=== PATIENT | male | born 1955 | race Caucasian/White ===

== ENCOUNTER → 2024-12-14 | Outpatient (CLI) | payer MEDICARE, SELFPAY ==
[2024-12-14 07:58] LABS: Collection Type, Urine Clean Catch
[2024-12-14 08:33] LABS: Basophils # (Auto) 0.1 Thou/mm3 (0.0-0.2); Basophils % (Auto) 1 % (0-2.5); Eosinophils # (Auto) 0.6 Thou/mm3 (0.0-0.5); Eosinophils % (Auto) 7 % (0-10); Hematocrit 29.5 % (41.0-53.0); Hemoglobin 9.6 g/dL (13.5-16.0); Immature Granulocytes % (Auto) 1 % (0-0); Immature Granulocytes Auto 0.04 Thou/mm3 (0.00-0.00); Lymphocytes # (Auto) 2.4 Thou/mm3 (1.0-4.8); Lymphocytes % (Auto) 29 % (10-50); Mean Corpuscular HGB Conc 32.5 g/dl (31.0-37.0); Mean Corpuscular Hemoglobin 31.4 pg (25.0-35.0); Mean Corpuscular Volume 96 fL (80-100); Monocytes # (Auto) 0.8 Thou/mm3 (0.0-0.8); Monocytes % (Auto) 10 % (0-12); Neutrophils # (Auto) 4.5 Thou/mm3 (1.8-7.7); Neutrophils % (Auto) 53 % (37-80); Nucleated Red Blood Cell % 0 /100 WBC (0); Platelet Count 146 Thou/mm3 (140-440); RDW Standard Deviation 51.5 fL (35.1-43.9); Red Blood Count 3.06 Miln/mm3 (4.50-5.90); White Blood Count 8.4 Thou/mm3 (3.8-10.6)
[2024-12-14 08:50] LABS: Anion Gap 8 (7-16); BUN/Creatinine Ratio 18 Ratio (12-20); Blood Urea Nitrogen 57 mg/dL (9-23); Calcium (Corrected) 8.8 mg/dL (8.5-10.1); Carbon Dioxide 18.7 mMol/L (20.0-31.0); Chloride 120 mMol/L (98-107); Creatinine (Component) 3.1 mg/dL (0.6-1.3); Glucose 95 mg/dL (74-106); Osmolality,Calculated 308 (275-295); Phosphorous 4.4 mg/dL (2.4-5.1); Potassium 5.1 mMol/L (3.4-5.1); Sodium 147 mMol/L (136-145); eGFR 21 See Note
[2024-12-14 08:54] LABS: Parathyroid Hormone Intact 222.8 pg/ml (18.5-88.0)
[2024-12-14 08:54] LABS: Bacteria,Urine Rare; Bilirubin,Urine Negative (Negative); Blood,Urine Trace (Negative); Clarity,Urine Clear (Clear/Hazy); Color,Urine Lt-Yellow (Lt Yel-Yel); Culture Indicated,Urine Not Indicated; Glucose, Urine 2+ (Negative); Hyaline Casts,Urine < 1 /hpf (0-1); Ketones,Urine Negative (Negative); Leukocyte Esterase,Urine Negative (Negative); Nitrite,Urine Negative (Negative); PH,Urine 6.5 (5.0-7.0); Protein,Urine 3+ (Neg - Trace); RBC,Urine 2 /hpf (0-3); Specific Gravity,Urine 1.016 (1.001-1.035); Squamous Epithelial Cell,Urine < 1 /hpf (0-5); Urobilinogen,Urine Negative mg/dL (0.0-1.0); WBC,Urine 8 /hpf (0-5)
[2024-12-14 09:03] LABS: Vitamin D 25 Hydroxy Total 22.4 ng/mL (7.3-40.2)
[2024-12-14 09:06] LABS: Ferritin 186 ng/mL (10.5-307.3); Iron 82 mcg/dL (65-175); Total Iron Binding Capacity 198 mcg/dL (250-425)
== END | disposition home or self-care (01) ==
PROVIDERS: PCP Family Medicine; Referring Provider Internal Medicine Nephrology; Visit Provider Internal Medicine Nephrology
DX: E55.9 Vitamin D deficiency, unspecified (principal); I12.9 Hypertensive chronic kidney disease with stage 1 through stage 4 chronic kidney disease, or unspecified chronic kidney disease; N18.4 Chronic kidney disease, stage 4 (severe); D63.1 Anemia in chronic kidney disease
CPT/HCPCS: 36415; 80069; 81001; 82306; 82728; 83540; 83550; 83970; 85025

== ENCOUNTER → 2025-01-19 | Outpatient (CLI) | payer MEDICARE, SELFPAY ==
[2025-01-19 09:49] LABS: Basophils # (Auto) 0.1 Thou/mm3 (0.0-0.2); Basophils % (Auto) 1 % (0-2.5); Eosinophils # (Auto) 0.4 Thou/mm3 (0.0-0.5); Eosinophils % (Auto) 7 % (0-10); Hematocrit 30.7 % (41.0-53.0); Immature Granulocytes % (Auto) 0 % (0-0); Immature Granulocytes Auto 0.01 Thou/mm3 (0.00-0.00); Lymphocytes # (Auto) 1.6 Thou/mm3 (1.0-4.8); Lymphocytes % (Auto) 29 % (10-50); Mean Corpuscular HGB Conc 32.6 g/dl (31.0-37.0); Mean Corpuscular Hemoglobin 31.9 pg (25.0-35.0); Mean Corpuscular Volume 98 fL (80-100); Monocytes # (Auto) 0.6 Thou/mm3 (0.0-0.8); Monocytes % (Auto) 11 % (0-12); Neutrophils % (Auto) 52 % (37-80); Nucleated Red Blood Cell % 0 /100 WBC (0); Platelet Count 129 Thou/mm3 (140-440); RDW Standard Deviation 53.1 fL (35.1-43.9); Red Blood Count 3.13 Miln/mm3 (4.50-5.90); White Blood Count 5.7 Thou/mm3 (3.8-10.6)
[2025-01-19 10:09] LABS: Collection Type, Urine Clean Catch; Squamous Epithelial Cell,Urine 0 /hpf (0-5)
[2025-01-19 10:25] LABS: Iron 80 mcg/dL (65-175); Percent Iron Saturation 36 % (20-55); Total Iron Binding Capacity 218 mcg/dL (250-425); Unsaturated Iron Binding 138 (225-295)
[2025-01-19 10:36] LABS: Albumin, Serum 2.9 gm/dL (3.4-4.8); Anion Gap 7 (7-16); BUN/Creatinine Ratio 22 Ratio (12-20); Blood Urea Nitrogen 79 mg/dL (9-23); Calcium 7.9 mg/dL (8.3-10.6); Calcium (Corrected) 8.8 mg/dL (8.5-10.1); Carbon Dioxide 18.2 mMol/L (20.0-31.0); Chloride 117 mMol/L (98-107); Creatinine (Component) 3.6 mg/dL (0.6-1.3); Glucose 92 mg/dL (74-106); Osmolality,Calculated 306 (275-295); Sodium 142 mMol/L (136-145); eGFR 17 See Note
[2025-01-19 10:37] LABS: Potassium 6.1 mMol/L (3.4-5.1)
[2025-01-19 10:54] LABS: Bilirubin,Urine Negative (Negative); Blood,Urine 1+ (Negative); Clarity,Urine Clear (Clear/Hazy); Color,Urine Lt-Yellow (Lt Yel-Yel); Glucose, Urine 2+ (Negative); Ketones,Urine Negative (Negative); Leukocyte Esterase,Urine Negative (Negative); Nitrite,Urine Negative (Negative); PH,Urine 6.5 (5.0-7.0); Protein,Urine 3+ (Neg - Trace); RBC,Urine 1 /hpf (0-3); Specific Gravity,Urine 1.018 (1.001-1.035); Urobilinogen,Urine Negative mg/dL (0.0-1.0); WBC,Urine 8 /hpf (0-5)
[2025-01-19 11:24] LABS: Creatinine,Random Urine 91 mg/dL (30-125); Protein Total, Random Urine 710 mg/dL (1-14)
[2025-01-24 22:03] LABS: Albumin 2.6 g/dL (3.8-4.8); Alpha-1-Globulin 0.3 g/dL (0.2-0.3); Alpha-2-Globulin 0.7 g/dL (0.5-0.9); Beta-1-Globulin 0.3 g/dL (0.4-0.6); Beta-2-globulin 0.5 g/dL (0.2-0.5); Gamma Globulin 0.9 g/dL (0.8-1.7)
[2025-01-25 06:51] LABS: Protein, total, serum 5.3 g/dL (6.1-8.1)
== END | disposition home or self-care (01) ==
LOC: COPL 09:07
PROVIDERS: PCP Family Medicine; Referring Provider Internal Medicine Nephrology; Visit Provider Internal Medicine Nephrology
DX: N20.0 Calculus of kidney (principal); I12.9 Hypertensive chronic kidney disease with stage 1 through stage 4 chronic kidney disease, or unspecified chronic kidney disease; N18.9 Chronic kidney disease, unspecified; D63.1 Anemia in chronic kidney disease; R80.9 Proteinuria, unspecified
CPT/HCPCS: 36415; 80069; 81001; 82570; 83540; 83550; 84155; 84156; 84165; 85025; 86334

== ENCOUNTER → 2025-02-09 | Outpatient (CLI) | payer MEDICARE, SELFPAY ==
--- NOTE | 2025-02-09 10:23 | XR_ITS ---
Examination: CT abdomen and pelvis without contrast. Coronal 3-D reconstructions. Sagittal 2-D reconstructions. Date and time of exam:February 09, 2025 at 1114 hours Comparison December 27, 2020 INDICATIONS: Left lower abdominal pain diarrhea beginning 3 days ago, history kidney stones CTDI: vol (mGy): 11.4 DLP: (mGycm): 690 Technique: Axial images of the abdomen have been obtained, 3 mm slice thickness Intravenous contrast material has not been administered. Low dose protocols were performed. One or more of the following dose reduction techniques were used; automated exposure control, adjustment of the mA and/or KV according to patient size, use of iterative reconstruction technique. Findings: No focal liver or splenic lesion Absent gallbladder No pancreatic or adrenal mass Numerous bilateral renal calculi, the largest in the upper pole left kidney 15 mm Moderate renal parenchymal scar formation Mild right hydronephrosis, 2 mm proximal right ureteral calculus image 105 Aorta normal size No bowel obstruction Colonic diverticulosis No bladder mass or bladder calculi Normal seminal vesicles Transverse prostate dimension 4.1 cm Moderate to advanced diffuse lumbar degenerative disc disease Moderate narrowing hip joints IMPRESSION: Numerous bilateral renal calculi, the largest in the upper pole left kidney, 15 mm Mild right hydronephrosis, 2 mm proximal right ureteral calculus No bladder mass or bladder calculi
== END | disposition home or self-care (01) ==
PROVIDERS: PCP Nurse Practitioner Family; Referring Provider Specialist; Visit Provider Specialist
DX: N13.30 Unspecified hydronephrosis (principal); N20.2 Calculus of kidney with calculus of ureter
CPT/HCPCS: 74176

== ENCOUNTER → 2025-05-16 | Outpatient (CLI) | payer MEDICARE, SELFPAY ==
[2025-05-16 09:28] LABS: Collection Type, Urine Clean Catch; Squamous Epithelial Cell,Urine 0 /hpf (0-5)
[2025-05-16 10:12] LABS: Basophils # (Auto) 0.1 Thou/mm3 (0.0-0.2); Basophils % (Auto) 1 % (0-2.5); Eosinophils # (Auto) 0.4 Thou/mm3 (0.0-0.5); Eosinophils % (Auto) 7 % (0-10); Hematocrit 27.8 % (41.0-53.0); Immature Granulocytes Auto 0.02 Thou/mm3 (0.00-0.00); Lymphocytes # (Auto) 1.7 Thou/mm3 (1.0-4.8); Lymphocytes % (Auto) 28 % (10-50); Mean Corpuscular HGB Conc 31.3 g/dl (31.0-37.0); Mean Corpuscular Hemoglobin 31.4 pg (25.0-35.0); Mean Corpuscular Volume 100 fL (80-100); Monocytes # (Auto) 0.7 Thou/mm3 (0.0-0.8); Monocytes % (Auto) 12 % (0-12); Neutrophils # (Auto) 3.1 Thou/mm3 (1.8-7.7); Neutrophils % (Auto) 52 % (37-80); Nucleated Red Blood Cell # 0.00 Thou/mm3 (0.00-0.00); Nucleated Red Blood Cell % 0 /100 WBC (0); Platelet Count 135 Thou/mm3 (140-440); RDW Standard Deviation 55.6 fL (35.1-43.9); Red Blood Count 2.77 Miln/mm3 (4.50-5.90); White Blood Count 6.0 Thou/mm3 (3.8-10.6)
[2025-05-16 10:20] LABS: Hemoglobin 8.7 g/dL (13.5-16.0)
[2025-05-16 10:29] LABS: Bacteria,Urine Rare; Bilirubin,Urine Negative (Negative); Blood,Urine 1+ (Negative); Clarity,Urine Clear (Clear/Hazy); Color,Urine Lt-Yellow (Lt Yel-Yel); Culture Indicated,Urine Not Indicated; Glucose, Urine 2+ (Negative); Ketones,Urine Negative (Negative); Leukocyte Esterase,Urine Negative (Negative); Nitrite,Urine Negative (Negative); PH,Urine 6.5 (5.0-7.0); Protein,Urine 3+ (Neg - Trace); RBC,Urine 2 /hpf (0-3); Specific Gravity,Urine 1.017 (1.001-1.035); Urobilinogen,Urine Negative mg/dL (0.0-1.0); WBC,Urine 9 /hpf (0-5)
[2025-05-16 10:39] LABS: Alanine Aminotransferase 14 U/L (10-49); Albumin, Serum 2.8 gm/dL (3.4-4.8); Alkaline Phosphatase 72 U/L (46-116); Anion Gap 11 (7-16); Aspartate Amino Transferase < 10 U/L (0-34); BUN/Creatinine Ratio 17 Ratio (12-20); Bilirubin,Direct 0.2 mg/dL (0.0-0.3); Bilirubin,Total 0.7 mg/dL (0.3-1.2); Blood Urea Nitrogen 59 mg/dL (9-23); Calcium 7.8 mg/dL (8.3-10.6); Carbon Dioxide 21.4 mMol/L (20.0-31.0); Cardiac Risk Estimate 2.8 RATIO (4.0-6.7); Chloride 116 mMol/L (98-107); Cholesterol 132 mg/dL (132-200); Creatinine (Component) 3.5 mg/dL (0.6-1.3); Free T4 (Free Thyroxine) 0.83 ng/dL (0.89-1.76); Glucose 91 mg/dL (74-106); HDL Cholesterol 47 mg/dL (40-60); LDL Cholesterol,Calculated 71 mg/dL (0-130); Osmolality,Calculated 310 (275-295); Phosphorous 4.5 mg/dL (2.4-5.1); Potassium 5.2 mMol/L (3.4-5.1); Sodium 148 mMol/L (136-145); Thyroid Stimulating Hormone 4.01 uIU/mL (0.55-4.78); Total Protein 4.8 gm/dL (5.7-8.2); Triglycerides 72 mg/dL (30-150); eGFR 18 See Note
[2025-05-16 10:41] LABS: Creatinine MALB Rnd Ur 82 mg/dL (30-125); Microalbumin Creat Ratio 4634 mg/gCrea (<30); Microalbumin, Random Urine > 3800 mg/L (0-300); Protein Total, Random Urine 759 mg/dL (1-14)
== END | disposition home or self-care (01) ==
PROVIDERS: PCP Internal Medicine Nephrology; Referring Provider Internal Medicine Cardiovascular Disease; Visit Provider Internal Medicine Cardiovascular Disease
DX: I12.9 Hypertensive chronic kidney disease with stage 1 through stage 4 chronic kidney disease, or unspecified chronic kidney disease (principal); N18.4 Chronic kidney disease, stage 4 (severe); E78.5 Hyperlipidemia, unspecified; I25.118 Atherosclerotic heart disease of native coronary artery with other forms of angina pectoris; R80.9 Proteinuria, unspecified
CPT/HCPCS: 36415; 80048; 80061; 80069; 80076; 81001; 82043; 82570; 84100; 84156; 84439; 84443; 85025

== ENCOUNTER 2025-08-06 12:05 | Inpatient (IN) | payer MEDICARE, SELFPAY ==
[2025-08-06] VITALS (11 sets, daily range): BP systolic 130–148; BP diastolic 67–87; PULSE 61–91; RESP 15–94; TEMP 36–36.8; O2SAT 92–100; BMI 34.9; BMI 34.7
--- NOTE | 2025-08-06 13:16 | XR_ITS ---
EXAMINATION: PA chest single view TECHNIQUE: Upright PA chest single view Date and time: August 06, 2025, 1322 hours, comparison October 30, 2023 INDICATIONS: Coughing today. FINDINGS: Moderate right base pneumonia Mild prominence cardiac contour Mild prominent central pulmonary arteries Moderate osteopenia IMPRESSION: Significant right base pneumonia
--- NOTE | 2025-08-06 13:16 | EKG_ITS ---
[facility] Test Date: 2025-08-06 Pat Name: GENESIS KAUR Department: Room: - Gender: Male Travel Rn: : 1955 Requested By: Brittney Lundberg Order Number: [id number] Reading MD: Brittney Lundberg Measurements Intervals [place] Rate: 77 P: 59 TN: 137 QRS: 53 QRSD: 92 T: 51 QT: 369 QTc: 420 Interpretive Statements SINUS RHYTHM Compared to ECG 10/30/2023 15:41:42 No significant changes /store/S0/[id number].pdf
--- NOTE | 2025-08-06 13:17 | PD.EDRME ---
Rapid Medical Screening Exam [facility] Arrival date/time: 08/06/25 12:05 This is a 70-year-old male that comes into the emergency room with complaints of chest pain, shortness of breath and fluid retention in lower extremities. Patient went to go see his primary doctor for another Rocephin shot and was told to come to the emergency room. Patient is having trouble breathing. Patient was given an inhaler for trouble breathing and wheezing. Per patient's daughter patient is not urinating that much. Patient does have chronic kidney disease. Patient also has a history of coronary artery disease status post cardiac stents, CHF, hyperlipidemia, hypertension. I have greeted and performed a focused initial assessment of this patient. Initial appropriate labs ordered at this time. A comprehensive ED assessment and evaluation of the patient and analysis of all test and completion of medical decision making process will be conducted by additional ED provider. Chief Complaint: Shortness of Breath/Dyspnea Time Seen by Provider: 08/06/25 12:33 Vital signs: Vital Signs Temperature 97.5 F 08/06/25 12:34 Pulse Rate 86 08/06/25 12:34 Respiratory Rate 22 H 08/06/25 12:34 Blood Pressure 131/75 H 08/06/25 12:34 Pulse Oximetry (%) 95 08/06/25 12:34 Oxygen Delivery Method Room Air 08/06/25 12:34 Exam: Wheezing throughout, alert and oriented, skin warm and dry Clinical Impression: Chest pain
[2025-08-06] MEDS: ALBUTEROL/IPRATROPIUM (Duoneb) RT SOL 3 ML NEBU INH ×3 (13:29→23:02)
--- NOTE | 2025-08-06 13:38 | EDNOTE_ITS ---
ED General RME/HPI General Chief complaint: Shortness of Breath/Dyspnea Stated complaint: I THINK I HAVE PNEUMONIA X1WEEK Time Seen by Provider: 08/06/25 12:33 Arrival date/time: 08/06/25 12:05 CC: Shortness of breath HPI patient states he has shortness of breath when walking onset 4 to 5 days ago also has lower leg swelling for the past week. Patient denies chest pain. No recent history of similar events. Denies fever at home. RME / HPI RME / HPI narrative: 08/06/25 12:05 This is a 70-year-old male that comes into the emergency room with complaints of chest pain, shortness of breath and fluid retention in lower extremities. Patient went to go see his primary doctor for another Rocephin shot and was told to come to the emergency room. Patient is having trouble breathing. Patient was given an inhaler for trouble breathing and wheezing. Per patient's daughter patient is not urinating that much. Patient does have chronic kidney disease. Patient also has a history of coronary artery disease status post cardiac stents , CHF, hyperlipidemia, hypertension. I have greeted and performed a focused initial assessment of this patient. Initial appropriate labs ordered at this time. A comprehensive ED assessment and evaluation of the patient and analysis of all test and completion of medical decision making process will be conducted by additional ED provider. Exam: Wheezing throughout, alert and oriented, skin warm and dry Impression: Chest pain Related Data Home Medications ?Medication ?Instructions ?Recorded ?Confirmed atorvastatin 40 mg tablet 40 mg PO QPM 10/02/19 carvedilol 12.5 mg tablet 12.5 mg PO QDAY 11/23/1903/31 albuterol sulfate 0.63 mg/3 mL 0.63 mg inhalation Q4H PRN Wheezing 01/24/20 07/14/25 solution for nebulization hydrochlorothiazide 25 mg tablet 25 mg PO DAILY PRN ed krissy 03/11/22 07/14/25 clopidogrel 75 mg tablet 75 mg PO DAILY 07/14/2503/31 Allergies Allergy/AdvReac Type Severity Reaction Status Date / Time No Known Allergies Allergy Verified 08/06/25 12:08 Review of Systems Review of Systems Narrative Review of Systems: GEN: No fever, no chills, no weight loss EYES: No discharge, no visual changes, no pain HEENT: No ear pain, no congestion, no sore throat PULM: + shortness of breath, no cough, no congestion CV: No chest pain, no dyspnea on exertion, no palpitations GI: No nausea, no vomiting, no diarrhea, no pain, no constipation : No frequency, no urgency, no dysuria MUSC/SKEL: No joint pain, no back pain SKIN: No rash PSYCH: No hallucinations, no depression HEME/LYMPH: No easy bleeding or bruising tendencies NEURO: No weakness, no headache Past Medical History Past Medical History NEUROLOGIC: Positive Neurological Disorders, Transient Ischemic Attacks (TIA), Peripheral Neuropathy and Migraine; Negative Cerebrovascular Accident, Dementia, Alzheimer's Disease, Parkinson's Disease, Brain Tumor, Meningitis, Seizures, Epilepsy, Multiple Sclerosis, Cerebral Palsy, Amyotrophic Lateral Sclerosis (ALS/Doris Gehrig's), Guillain-Hazen Syndrome, Spina Bifida, Paralysis, Hernandez's Palsy, Subdural Hematoma, Head Trauma, Spinal Cord Injury or Traumatic Brain Injury CARDIAC: Positive Cardiac Disorders, Myocardial Infarction (2016 HOSP), Angina, Coronary Artery Disease, Hypercholesterolemia, Congestive Heart Failure and Hypertension; Negative Cardiac Arrhythmia, Atrial Fibrillation, Heart Murmur, Atherosclerotic Heart Disease, Peripheral Vascular Disease, Aneurysm, Congenital Heart Disease, Valvular Heart Disease, Rheumatic Fever, Cardiomyopathy, Edema, Pericarditis, Cellulitis, Deep Vein Thrombosis, Hypotension or Varicose Veins RESPIRATORY: Positive Asthma (HAS NEBULIZER), Bronchitis and Pneumonia; Negative Chronic Obstructive Pulmonary Disease (COPD), Emphysema, Pulmonary Fibrosis, Tuberculosis, Pulmonary Embolism, Pulmonary Edema or Sleep Apnea GASTROINTESTINAL: Positive Gastrointestinal Disorders, Hemorrhoids and Obesity; Negative Hepatitis, Cirrhosis, Pancreatitis, Celiac Disease, Gall Bladder Disease, Gastrointestinal Bleed, Esophageal Varices, Coelho's Esophagus, Colitis, Ulcerative Colitis, Diverticulitis, Diverticulosis, Ulcer, Colorectal Cancer, Irritable Bowel, Crohn's Disease, Obstructive Bowel, Hiatal Hernia or Gastroesophageal Reflux Disease GENITOURINARY: Positive Genitourinary Disorders, Renal Disease, Kidney Stones (NUMEROUS PROC) and Benign Prostatic Hyperplasia; Negative Polycystic Kidney Disease, Neurogenic Bladder, Inguinal Hernia, Dialysis or Prostate Cancer REPRODUCTIVE: Negative Breast Cancer, Genital Herpes, Gonorrhea, Syphilis or Testicular Cancer MUSCULOSKELETAL: Positive Carpal Tunnel Syndrome; Negative Musculoskeletal Disorders, Muscular Dystrophy, Myasthenia Gravis, Marfan's Syndrome, Bone Cancer, Arthritis, Rheumatoid Arthritis, Osteoporosis, Degenerative Disk Disease, Gout, Scoliosis, Fibromyalgia, Fractures, D egenerative Joint Disease, Osteomyelitis or Poliovirus ENT: Negative Cataracts, Glaucoma, Blind, Retinal Detachment, Macular Degeneration, Ear Infection, Deafness, Head Trauma or Eye Prosthesis ENDOCRINE: Negative Endocrine Disorders, Diabetes Mellitus Type 1, Diabetes Mellitus Type 2, Hypoglycemia, Kita's Syndrome, Reza's Disease, Hyperthyroidism, Hypothyroidism, Parathyroid Disease, Pituitary Disease, Systemic Lupus Erythematosus, Syndrome of Inappropriate Antidiuretic Hormone (SIADH), Adrenal Disease or Graves' Disease HEMATOLOGIC: Negative Blood Disorders, Anemia, Leukemia, Hemophilia, Thalassemia, Sickle Cell Disease or Clotting Problems PSYCHO/SOCIAL: Positive Anxiety; Negative Psychiatric Problems, Schizophrenia, Recreational Drug Use, Bipolar Disorder, Depression, Behavior Problems, Self-Mutilation, Attention Deficit Disorder, Attention Deficit Hyperactivity Disorder, Depression, Post Traumatic Stress Disorder or Eating Disorder OTHER HISTORY: Positive Hospitalization, Chicken Pox, Measles and Mumps; Negative Autoimmune Disease, Down Syndrome, Autism, Developmental Delay, Shingles, Falls, Blood Transfusions, Anesthesia Reactions, Organ Transplant, Chemotherapy, Radiation Therapy, Hyperbaric Therapy, MRSA, VRSA, Vancomycin- Resistant Enterococci, Human Immunodeficiency Virus (HIV), Rubella (Fijian Measles), Pertussis, Clostridium Difficile, Cancer, Breast Cancer, Cervical Cancer, Colorectal Cancer, Lung Cancer, Ovarian Cancer, Prostate Cancer or Testicular Cancer Family History FAMILY HISTORY: Positive Family Respiratory Disorders, Family Cardiac Disorders, Family Cancer and Family Surgery; Negative Family Psychiatric Problems, Family Gastrointestinal Problems or Family Anesthesia Reaction Surgical History SURGICAL: Positive Coronary Stent (X2), Cardiac Catheterization, Angiogram, Tonsillectomy, Adenoidectomy and Bowel Surgery (HEMORRHOIDECTOMY); Negative Cardiac Surgery, Open Heart Surgery, Coronary Artery Bypass Graft, Valve Replacement, Vascular Surgery, Pacemaker, Auto Implanted Cardiovert Defib, Carotid Endarterectomy, Endocrine Surgery, Thyroidectomy, Ear Surgery, Tympanostomy Tube, Eye Surgery, Nose Surgery, Oral Surgery, Cochlear Implant, Corneal Transplant, Throat Surgery, Abdominal Surgery, Tracheostomy, Gastric Bypass Surgery, Gastrostomy, Nephrectomy, Transurethral Resection, Joint Replacement, Amputation, Open Reduction Internal Fixation, Arthroscopy, Neurologic Surgery, Brain Shunt, Vasectomy or Organ Transplant Social History SMOKING STATUS: Never smoker SECOND HAND EXPOSURE: No SUBSTANCE USE: does not use ED Exam Narrative Physical exam: [General: Obese not in any acute distress Head normocephalic HEENT: Eyes pupils PERRLA EOMs are intact mouth pink moist membranes uvula is midline swallow symmetrical phonation is normal. All other subsystems HEENT are within acceptable limits Neck is supple nontender Chest equal chest rise nontender to palpation Respiratory: Inspiratory and expiratory wheezes with base crackles. No tachypnea. CV: Rate rhythm is regular no murmurs rubs or clicks Abdomen is grossly distended secondary to body habitus soft nontender no masses positive bowel sounds all 4 quadrants Back: No CVA tenderness no spinous process tenderness from cervical spine thoracic and lumbar spine Skin: Intact no petechiae rash induration ulceration or crepitus Extremities: Moving all extremity against resistance cap refill less than 2 seconds neurosensory intact. Pitting edema in the both lower extremities. Neuro: Awake alert oriented x3 Glascow coma 15 no focal deficits] Course Course Course Narrative: Patient has a significant right pneumonia. Also has a significantly worsening BUN and creatinine. Patient's case discussed with Dr. Fernandes, resident for Dr. Michel, who agrees to accept the patient for admission. Quality Measures none Orders Category Date Time Status Child Guidance Counselor Q4H START 00 Care 08/06/25 13:49 Active EKG (ED ONLY) *Do not use* NOW Care 08/06/25 13:16 Completed Saline [Insert IV] NOW Care 08/06/25 13:38 Active EKG (ED Only) Stat Exams 08/06/25 13:16 Draft XR chest 1V Stat Exams 08/06/25 13:16 Completed BNP [B-Type Natriuretic Peptide] Stat Lab 08/06/25 13:35 Completed Blood Culture (Lab) Stat Lab 08/06/25 13:42 Received CBC Stat Lab 08/06/25 13:35 Completed COVID-19 Antigen (In-House) Stat Lab 08/06/25 15:45 Completed Comprehensive Metabolic Panel Stat Lab 08/06/25 13:35 Completed Influenza A & B Rapid Panel Stat Lab 08/06/25 15:45 Completed Lactic Acid [Lactate (Lactic Acid)] Stat Lab 08/06/25 13:35 Completed Troponin I Stat Lab 08/06/25 13:35 Completed Urinalysis, C/S if Indicated Stat Lab 08/06/25 14:11 Completed Urine Culture Stat Lab 08/06/25 14:11 Received Albuterol/Ipratr Rt Latosha [Duoneb Rt Latosha] Med 08/06/25 13:16 Discontinued 3 ml INH X1 ONE cefTRIAXone/D5w 1gm IV premix [Rocephin/D5w 1gm IV Med 08/06/25 13:38 Discontinued premix] 1 gm in 50 ml IV X1 Vital Signs Vital signs: Vital Signs Temperature 97.5 F 08/06/25 12:34 Pulse Rate 86 08/06/25 12:34 Respiratory Rate 22 H 08/06/25 12:34 Blood Pressure 131/75 H 08/06/25 12:34 Pulse Oximetry (%) 95 08/06/25 12:34 Oxygen Delivery Method Room Air 08/06/25 12:34 Discharge Plan Plan Patient Disposition: Other Care w/in Hosp (SDC/AVERY) Prescriptions/Referrals Prescriptions/Med Rec: No Action hydrochlorothiazide 25 mg Tablet 25 mg PO DAILY PRN (Reason: edema) atorvastatin 40 mg Tablet 40 mg PO QPM carvedilol 12.5 mg Tablet 12.5 mg PO QDAY albuterol sulfate 0.63 mg/3 mL Solution For Nebulization 0.63 mg INHALATION Q4H PRN (Reason: Wheezing) clopidogrel 75 mg tablet 75 mg PO DAILY Patient Comments: TAKE 1 TABLET BY MOUTH ONCE DAILY Referrals: Yakov Nichols MD [Primary Care Provider, Family Practice] - In 1 week Problem List Clinical Impression: Shortness of breath, Pneumonia, KERWIN (acute kidney injury) Patient/Caregiver Discharge Instructions Print Language: Chinese Stand Alone Forms: Clarissa Award Info., Patient Portal Info Letter PA/BRAIDING MACHINE OPERATOR Supervising Physician PA/BRAIDING MACHINE OPERATOR Supervising Physician: Hair Barragan ENP [facility] Clinical Information Provided by: patient Medical Records reviewed [facility] Meds/Rx considered, not ordered None Labs/Rad/Tests considered, not ordered None Chronic Illness/Social Conditions Explain: Hypertension CKD stage II Dr. Canseco her sonoscope operator, Dr Ovalle is her conservation biology professor. EKG Interpretation EKG #1: EKG Interpretation: EKG performed at 1318 shows a ventricular rate of 77 ID interval 138 QRS of 92 QTc of 401 is normal sinus rhythm. Poor conduction in aVL Labs Labs: interpreted by pa Lab(s) Interpretation(s): CBC shows no leukocytosis and H&H of 9.2 and 28 ninth 0.3 respectively no thrombocytopenia. Note, review of the H&H show that this is a stable anemia. CMP shows sodium 139 chloride of 119 CO2 of 19 gap of 11 BUN of 56 creatinine 4.5 glucose of 108 Lactic of 0.4 no transaminitis or T. bili elevation Troponin is undetectable BNP at 518. Urine shows 3+ protein 3+ glucose 1+ blood no signs of infection. Imaging Imaging interpretation: interpreted by me Imaging Interpretation(s): Right base pneumonia Medication Administration(s) Medication Administration History Discontinued Medications Albuterol/Ipratropium (Albuterol/Ipratropium (Duoneb) Rt Latosha 3 Ml Nebu) 3 ml INH X1 ONE Stop: 08/06/25 13:17 Last Admin: 08/06/25 13:29 Dose: 3 ml Documented By: CHADD Ceftriaxone Sodium/Dextrose (Rocephin/D5w 1gm Iv Premix) 1 gm in 50 mls @ 100 mls/hr IV X1 ONE Stop: 08/06/25 14:07 Last Infusion: 08/06/25 14:41 Dose: Infused Documented By: Admin: 08/06/25 14:07 Dose: 100 mls/hr Documented By: ALLISON
[2025-08-06 13:50] LABS: Lactate (Lactic Acid) 0.4 mMol/L (0.4-2.0)
[2025-08-06 13:57] LABS: Basophils # (Auto) 0.1 Thou/mm3 (0.0-0.2); Basophils % (Auto) 1 % (0-2.5); Eosinophils # (Auto) 0.4 Thou/mm3 (0.0-0.5); Eosinophils % (Auto) 5 % (0-10); Hematocrit 29.3 % (41.0-53.0); Hemoglobin 9.2 g/dL (13.5-16.0); Immature Granulocytes Auto 0.04 Thou/mm3 (0.00-0.00); Lymphocytes # (Auto) 1.4 Thou/mm3 (1.0-4.8); Lymphocytes % (Auto) 17 % (10-50); Mean Corpuscular HGB Conc 31.4 g/dl (31.0-37.0); Mean Corpuscular Hemoglobin 30.8 pg (25.0-35.0); Mean Corpuscular Volume 98 fL (80-100); Monocytes # (Auto) 0.9 Thou/mm3 (0.0-0.8); Monocytes % (Auto) 10 % (0-12); Neutrophils # (Auto) 5.5 Thou/mm3 (1.8-7.7); Neutrophils % (Auto) 66 % (37-80); Nucleated Red Blood Cell # 0.00 Thou/mm3 (0.00-0.00); Nucleated Red Blood Cell % 0 /100 WBC (0); Platelet Count 145 Thou/mm3 (140-440); RDW Standard Deviation 52.2 fL (35.1-43.9); Red Blood Count 2.99 Miln/mm3 (4.50-5.90); White Blood Count 8.3 Thou/mm3 (3.8-10.6)
[2025-08-06] MEDS: cefTRIAXone/D5w 1gm IV premix 1 GM/50 ML BAG IV ×2 (14:07→17:21)
[2025-08-06 14:11] LABS: Alanine Aminotransferase 14 U/L (10-49); Albumin, Serum 3.5 gm/dL (3.4-4.8); Albumin/Globulin Ratio 1.4 (1.2-2.2); Alkaline Phosphatase 80 U/L (46-116); Anion Gap 11 (7-16); Aspartate Amino Transferase 18 U/L (0-34); BUN/Creatinine Ratio 12 Ratio (12-20); Bilirubin,Total 0.4 mg/dL (0.3-1.2); Blood Urea Nitrogen 56 mg/dL (9-23); Calcium 7.9 mg/dL (8.3-10.6); Calcium (Corrected) 8.3 mg/dL (8.5-10.1); Carbon Dioxide 19.0 mMol/L (20.0-31.0); Chloride 119 mMol/L (98-107); Creatinine (Component) 4.5 mg/dL (0.6-1.3); Estimated Creatinine Clearance 17.4 mL/min (>60); Globulin 2.5 gm/dL (2.3-3.5); Glucose 108 mg/dL (74-106); Osmolality,Calculated 312 (275-295); Potassium 4.5 mMol/L (3.4-5.1); Sodium 149 mMol/L (136-145); Total Protein 6.0 gm/dL (5.7-8.2); Troponin I < 0.020 ng/mL (0.0-0.045); eGFR 13 See Note
[2025-08-06 14:13] LABS: B-Type Natriuretic Peptide 518 pg/mL (0-100)
[2025-08-06 14:26] LABS: Collection Type, Urine Voided
[2025-08-06 14:44] LABS: Bilirubin,Urine Negative (Negative); Blood,Urine 1+ (Negative); Clarity,Urine Clear (Clear/Hazy); Color,Urine Lt-Yellow (Lt Yel-Yel); Glucose, Urine 3+ (Negative); Ketones,Urine Trace (Negative); Leukocyte Esterase,Urine Negative (Negative); Nitrite,Urine Negative (Negative); PH,Urine 6.5 (5.0-7.0); Protein,Urine 3+ (Neg - Trace); RBC,Urine 3 /hpf (0-3); Specific Gravity,Urine 1.018 (1.001-1.035); Squamous Epithelial Cell,Urine < 1 /hpf (0-5); Urobilinogen,Urine Negative mg/dL (0.0-1.0); WBC,Urine 11 /hpf (0-5)
[2025-08-06 14:59] LABS: Culture Indicated,Urine Yes
[2025-08-06 16:01] LABS: COVID-19 Antigen (In-House) Negative (Negative)
[2025-08-06 16:04] LABS: Influenza A Ag Negative; Influenza B Ag Negative
--- NOTE | 2025-08-06 16:57 | ECHO_ITS ---
Patient Info Name: Nghia Mcconnell Age: 70 years : 1955 Gender: Male Ht: 173 cm Wt: 108 kg BSA: 2.32 m2 BP: 144 / 67 mmHg HR: 89 bpm Exam Date: 08/06/2025 5:24 PM Admit Date: 08/06/2025 Site: [facility] Room Number: ER Patient Status: I Technical Quality: Fair Exam Type: CA echo doppler complete Bistro Server: Tanisha Marques Ordering Physician: Norma Vo Study Info Indications CHF exacerbation - Primary Location: [place] Left Ventricular Outflow Tract Name Value Normal LVOT 2D LVOT Diameter 1.9 cm LVOT Doppler LVOT Peak Velocity 128 cm/s LVOT Mean Gradient 4 mmHg LVOT VTI 29 cm LVOT VTI/AV VTI Ratio 0.9 LVOT Stroke Volume 82 ml Pulmonic Valve Name Value Normal PV Doppler PV Peak Velocity 96 cm/s Mitral Valve Name Value Normal MV Doppler MV Decel [place] 566 cm/s2 MV PHT 48 ms MV Area (PHT) 4.6 cm2 4.0-5.0 MV Diastolic Function MV E Peak Velocity 94 cm/s MV A Peak Velocity 80 cm/s MV E/A 1.2 MV Annular TDI MV Septal e' Velocity 7.1 cm/s MV E/e' (Septal) 13.2 MV Lateral e' Velocity 12.1 cm/s MV E/e' (Lateral) 7.7 MV e' Average 9.59 cm/s MV E/e' (Average) 10.5 Tricuspid Valve Name Value Normal TV Regurgitation Doppler TR Peak Velocity 133 cm/s Estimated PAP/RSVP RA Pressure 8 mmHg <=5 PA Systolic Pressure 15 mmHg <36 RV Systolic Pressure 15 mmHg <36 TV Annular TDI TV Lateral [place] s' Velocity 20.4 cm/s >=9.5 Aortic Valve Name Value Normal AV 2D/MM AV Cusp Sep (MM) 1.2 cm AV Doppler AV Peak Velocity 139 cm/s AV Mean Gradient 4 mmHg AV VTI 32 cm AV Area (Cont Eq VTI) 2.6 cm2 >=3.0 AV Area (Cont Eq [place]) 2.6 cm2 AV DI ([place]) 0.92 AV Regurgitation 2D LVOT Area 2.8 cm2 Ventricles Name Value Normal LV Dimensions 2D/MM IVS Diastolic Thickness (2D) 0.9 cm 0.6-1.0 LVID Diastole (2D) 5.6 cm 4.2-5.8 LVIW Diastolic Thickness (2D) 0.9 cm 0.6-1.0 LVID Systole (2D) 4.0 cm 2.5-4.0 LVOT Diameter 1.9 cm LV Mass (2D Cubed) 191.63 g 88.00-224.00 LV Mass Index (2D Cubed) 82 g/m2 49-115 Relative Wall Thickness (2D) 0.32 <=0.42 IVS/LVIW Diastolic Thickness (2D) 1.00 0.00-1.50 LV Fractional Shortening/Ejection Fraction 2D/MM LV Fractional Shortening (2D) 29 % 25-43 LV EF (2D Teichholkaroline) 54 % RV Dimensions 2D/MM TV Lateral [place] s' Velocity 20.4 cm/s >=9.5 Atria Name Value Normal LA Dimensions LA Volume (4C A-L) 34 ml LA Volume (BP A-L) 37 ml Left Ventricle Left ventricular chamber dimension is normal. Left ventricular systolic function is normal with visually estimated ejection fraction of 55-60%. There is normal geometry noted in the left ventricle. Left ventricular segmental wall motion is normal. There is normal diastolic function in the left ventricle. Right Ventricle Right ventricular chamber dimension is normal. Right ventricular systolic function is normal. Left Atrium Left atrial chamber dimension is mildly enlarged. Right Atrium Right atrial chamber dimension is mildly enlarged. Aortic Valve There is moderate aortic valve sclerosis. There is no aortic valve stenosis with a peak velocity of 139 cm/s, mean gradient of 4 mmHg, and aortic valve area of 2.6 cm2. There is trace aortic valve regurgitation. moderate thickening and calcification of the aortic valve leaflets. Pulmonic Valve The pulmonic valve is normal. There is no pulmonic valve stenosis. There is no pulmonic regurgitation. Mitral Valve The mitral valve has normal leaflets. There is no mitral valve stenosis. There is mild mitral valve regurgitation. Tricuspid Valve The tricuspid valve leaflets are normal. There is no tricuspid valve stenosis. There is trace tricuspid valve regurgitation. No pulmonary hypertension, estimated pulmonary arterial systolic pressure is 15 mmHg and systemic blood pressure of 144 mmHg in systole. Pericardium/Pleural The pericardium appears normal. There is small pericardial effusion with no tamponade. No pleural effusion visualized. Inferior Vena Cava Not well visualized inferior vena cava with >50% collapse upon inspiration consistent with normal right atrial pressure, 8 mmHg. Aorta The aortic measurements are indexed to age and body surface area. The aortic root at the sinus of Valsalva is not well visualized. The prox ascending aorta is not well visualized. Summary 1. Left ventricle size is normal and systolic function is normal. Estimated ejection fraction is 55-60%. Indeterminate diastolic function. 2. Right ventricle chamber size is normal and systolic function is normal. Estimated RVSP is 15 mmHg. 3. There is moderate aortic valve sclerosis with no stenosis and trace regurgitation. 4. moderate thickening and calcification of the aortic valve leaflets. 5. There is trace to mild MR and TR. 6. The left atrium is mildly enlarged. The right atrium is mildly enlarged. Report Signatures Finalized by Navdeep Barajas on 08/07/2025 02:45 AM
--- NOTE | 2025-08-06 17:10 | PD.RESHP ---
Documentation for date of: 08/06/25 HPI History of Present Illness History of present illness: Mr. Mcconnell is a 70 y/o male with PMH CKD stage IV (follows with Vasquez), CAD s/p stenting (follows with Dewey), hyperlipidemia, and hypertension who presented to the ED on 08/06 with exertional dyspnea, b/l LE swelling x several weeks; productive cough and chest pain that does not radiate x 1 week. Denies fevers, chills, myalgia, leg pain, sore throat, abdominal pain, nausea, vomiting, diarrhea, constipation. Patient became extremely short of breath walking to the bathroom. ED course: Afebrile, RR 17-22. Labs significant for normocytic anemia hgb 9.2, HCT 29.3. Hypernatremia Na 149, Cl 119, bicarb 19, KERWIN BUN 56, Cr 4.5 (baseline ~3), eGFR 13 (baseline ~mid 20s). BNP 518. Lactic acid, troponin, flu, COVID unremarkable. EKG NSR HR 77, QTc 420. UA 3+ protein, 3+ glucose, 1+ blood, 11 WBC (unconvincing for UTI). CXR right base consolidation c/w PNA, vascular congestion. Given Duoneb and Rocephin 1 g IV in ED. PMHx: CKD stage IV (follows with Vasquez), CAD s/p stenting (follows with Dewey), hyperlipidemia, hypertension Allergies: NKDA Home meds: Pending med rec SgHx: CABG, ureteral stenting (s/p removal of ureteral stent) SHx: Denies smoking, EtOH, recreational drug use. Lives alone, sometimes daughter comes to visit and helps take care of him. Retired, used to work as contractor, entrepeneur. FHx: denies Review of Systems Review of Systems Narrative Review of Systems: 14 point ROS negative other than HPI Exam Vital Signs Temp Pulse Resp BP Pulse Ox O2 Del Method 98.1 F 91 18 144/67 H 97 Room Air 08/06/25 14:07 08/06/25 16:26 08/06/25 16:26 08/06/25 16:26 08/06/25 16:26 08/06/25 16:26 Narrative Exam General: No acute distress, well nourished Eye: PERRL, EOMI, normal conjunctiva, no scleral icterus HENT: Normocephalic, atraumatic, normal hearing, moist oral mucosa Neck: Supple, non-tender, no JVD, no lymphadenopathy Lungs: Wheezing diffusely, no crackles appreciated, wet-sounding productive cough. spO2 97% on room air. Heart: Normal S1 and S2, no S3 or S4 appreciated. Normal rate and regular rhythm, no murmurs, rubs gallops. 3+ pitting edema of b/l LE and abdomen Abdomen: Soft, non-tender, non-distended, normal bowel sounds. No guarding or rebound tenderness. Musculoskeletal: Normal range of motion and strength, no tenderness or swelling Skin: Skin is warm, dry, no rashes or lesions. Neurologic: Alert, awake and oriented x3. CN II-XII grossly intact. No focal neuro deficits. No signs of meningeal irritation noted. Psychiatric: Cooperative, appropriate mood and affect Results: Labs 08/06/25 13:35 08/06/25 13:35 Labs: Short CBC 08/06/25 Range/Units 13:35 WBC 8.3 (3.8-10.6) Thou/mm3 Hgb 9.2 L (13.5-16.0) g/dL Hct 29.3 L (41.0-53.0) % Plt Count 145 (140-440) Thou/mm3 BMP 08/06/25 13:35 Sodium 149 H Potassium 4.5 Chloride 119 H Carbon Dioxide 19.0 L BUN 56 H Creatinine 4.5 H* Glucose 108 H Calcium 7.9 L Cardiac Enzymes 08/06/25 Range/Units 13:35 Troponin I < 0.020 (0.0-0.045) ng/mL Liver Function 08/06/25 Range/Units 13:35 Total Bilirubin 0.4 (0.3-1.2) mg/dL AST 18 (0-34) U/L ALT 14 (10-49) U/L Alkaline Phosphatase 80 (46-116) U/L Albumin 3.5 (3.4-4.8) gm/dL Urine 08/06/25 Range/Units 14:11 Urine Color Lt-Yellow (Lt Yel-Yel) Urine Clarity Clear (Clear/Hazy) Urine pH 6.5 (5.0-7.0) Ur Specific [place] 1.018 (1.001-1.035) Urine Protein 3+ A (Neg - Trace) Urine Glucose (UA) 3+ A (Negative) Quality Measures Quality Measures none Advance care planning discussed with:: patient Medications Home Medications and Allergies Home Medications ?Medication ?Instructions ?Recorded ?Confirmed ?Type atorvastatin 40 mg tablet 40 mg PO QPM 10/02/19 07/14/25 History carvedilol 12.5 mg tablet 12.5 mg PO QDAY 11/23/19 07/14/25 History albuterol sulfate 0.63 mg/3 mL 0.63 mg inhalation Q4H PRN Wheezing 01/24/20 07/14/25 History solution for nebulization hydrochlorothiazide 25 mg tablet 25 mg PO DAILY PRN edema 03/11/22 07/14/25 History clopidogrel 75 mg tablet 75 mg PO DAILY 07/14/25 07/14/25 History Allergies Allergy/AdvReac Type Severity Reaction Status Date / Time No Known Allergies Allergy Verified 08/06/25 12:08 Visit Medications Acetaminophen (Acetaminophen 325 Mg Tablet) 650 mg PO Q6H PRN PRN Reason: Fever >100.3 Stop: 09/05/25 16:51 Acetaminophen (Acetaminophen 325 Mg Tablet) 650 mg PO Q6H PRN PRN Reason: PAIN SCALE 1-3 (mild Stop: 09/05/25 16:51 Furosemide (Furosemide Inj 10 Mg/Ml 4ml Vial) 40 mg IVP BID MICHELLE Stop: 09/05/25 20:59 Heparin Sodium (Porcine) (Heparin Sod Inj 5000 Unit/Ml Vial) 5,000 unit SC Q8HR MICHELLE Stop: 08/20/25 21:59 Ceftriaxone Sodium/Dextrose (Rocephin/D5w 1gm Iv Premix) 1 gm in 50 mls @ 100 mls/hr IV QDAY MICHELLE Stop: 08/13/25 16:58 Azithromycin 500 mg/ Sodium (Chloride) 250 mls @ 250 mls/hr IV QDAY MICHELLE Stop: 08/13/25 16:59 Azithromycin 500 mg/ Sodium (Chloride) 250 mls @ 250 mls/hr IV X1 ONE Stop: 08/06/25 18:14 Ondansetron HCl (Ondansetron Inj 2 Mg/Ml Inj 2 Ml) 4 mg IVP Q6H PRN; Protocol PRN Reason: NAUSEA OR VOMITING Stop: 09/05/25 16:51 Discontinued Medications Albuterol/Ipratropium (Albuterol/Ipratropium (Duoneb) Rt Latosha 3 Ml Nebu) 3 ml INH X1 ONE Stop: 08/06/25 13:17 Last Admin: 08/06/25 13:29 Dose: 3 ml Ceftriaxone Sodium/Dextrose (Rocephin/D5w 1gm Iv Premix) 1 gm in 50 mls @ 100 mls/hr IV X1 ONE Stop: 08/06/25 14:07 Last Infusion: 08/06/25 14:41 Dose: Infused Sodium Chloride (Sodium Chloride Rt 10% 15 Ml Nebu) 5 ml INH X1 ONE Stop: 08/06/25 16:53 Assessment & Plan Plan Mr. Mcconnell is a 70 y/o male with PMH CKD stage IV (follows with Vasquez), CAD s/p stenting (follows with De[facility]), hyperlipidemia, and hypertension who presented to the ED on 08/06 with exertional dyspnea, b/l LE swelling x several weeks; productive cough and chest pain that does not radiate x 1 week. Admitted for CHF exacerbation, PNA (CAP), and KERWIN. #Exertional dyspnea #c/f CHF exacerbation No documented hx CHF in charts. Pt states he takes a water pill at home Evidence of fluid overload - b/l LE and abdominal pitting edema, exertional dyspnea, tachypnea, chest discomfort BNP 518 Troponin unremarkable, EKG NSR HR 77, QTc 420 CXR: vascular congestion Plan: - Lasix 40 mg IV BID - Strict I+Os - Daily weights - Fluid restriction 1800 mL/day ?Echo ordered #Community acquired pneumonia Afebrile, no leukocytosis. Wet sounding productive cough x 1 week, tachypnea spO2 appropriate on room air Flu and COVID negative CXR: right base pneumonia Plan: - Ceftriaxone 1 g IV daily (08/06-) - Azithromycin 500 mg IV daily (08/06-) - Duoneb q4h michelle - Albuterol q4h PRN - Pending sputum and blood cx #KERWIN #CKD stage IV #Hypernatremia Follows with Dr. Ovalle On admit: BUN 56, Cr 4.5 (baseline ~3), eGFR 13 (baseline ~mid 20s) Plan: - Consutled Dr. Ovalle, appreciate recs - Cannot give fluids as pt clinically fluid overloaded ? Follow-up renal panel #Normocytic anemia On admit: hgb 9.2, HCT 29.3, MCV 98 No s/sx active bleed Plan: - CTMwith daily CBC #CAD s/p stenting Follows with Dr. Palomo Angiography 2021: normal sized LV, mid anterior wall/LV hypokineses, good overall LV systolic function with LVEF 60%. Mid-moderate coronary atherosclerosis with 40% stenosis in the mid LAD, s/p stenting, 99% stenosis side branch; 20% eccentric stenosis mid RCA with minimal aneurysmal dilatation of mid RCA. Plan: - Atorvastatin 40 mg PO QHS - Plavix 75 mg PO daily (home med) #Hypertension Plan: - Carvedilol 12.5 mg PO BID (home med) - held 2/ c/f CHF exacerbation #Hyperlipidemia Plan: - Atorvastatin 40 mg PO QHS Checklist Dispo: Admit for diuresis, IV abx Lines: PIV Diet: Cardiac/renal Bowel Reg: doc/senna VTE ppx: heparin subQ GI ppx: n/a Pain mgmt: Tylenol 650 mg PO q6h PRN Code status: full Plan discussed with Dr. Marilu Vo MD PGY1 Attending Provider Attestation/Addendum I have seen and examined the patient. I was physically present for the isaac portions of the services provided including history, physical exam, diagnosis, treatment plans and orders. I agree with assessment and plan of care as documented by residents. After examination of the patient and review of the clinical data I feel that this patient needs admission to the hospital for further treatment/evaluation. Even though this this note was carefully revised there may still be minor errors in graphics programmer due to voice recognition software. Anisa Michel MD
[2025-08-06] MEDS: AZITHROMYCIN INJ 500 MG in SODIUM CHLORIDE 0.9% 250 ML 250 ML 250 MG IV (17:22)
[2025-08-06 17:35] LABS: Glucose Estimated Average 103 mg/dL (80-131); Hemoglobin A1C 5.2 % Hgb (4.8-6.0)
[2025-08-06 17:36] LABS: INR 1.2 (0.9-1.3); Partial Thromboplastin Time 29.9 Seconds (22.0-36.0); Prothrombin Time 12.3 Seconds (9.0-12.2)
[2025-08-06] MEDS: ATORVASTATIN CALCIUM 20 MG TABLET 40 MG PO (21:16)
[2025-08-06] MEDS: FUROSEMIDE INJ 10 MG/ML 4ML VIAL 40 MG IVP (21:16)
[2025-08-06] MEDS: HEPARIN SOD INJ 5000 UNIT/ML VIAL SC (21:16)
[2025-08-06 23:12] LABS: Albumin, Serum 3.0 gm/dL (3.4-4.8); Anion Gap 11 (7-16); BUN/Creatinine Ratio 13 Ratio (12-20); Blood Urea Nitrogen 59 mg/dL (9-23); Calcium 7.5 mg/dL (8.3-10.6); Calcium (Corrected) 8.3 mg/dL (8.5-10.1); Carbon Dioxide 20.1 mMol/L (20.0-31.0); Chloride 119 mMol/L (98-107); Creatinine (Component) 4.5 mg/dL (0.6-1.3); Estimated Creatinine Clearance 17.4 mL/min (>60); Glucose 115 mg/dL (74-106); Osmolality,Calculated 315 (275-295); Phosphorous 4.9 mg/dL (2.4-5.1); Potassium 4.4 mMol/L (3.4-5.1); Sodium 150 mMol/L (136-145); eGFR 13 See Note
[2025-08-07] VITALS (14 sets, daily range): BP systolic 125–143; BP diastolic 68–84; PULSE 60–108; RESP 13–96; TEMP 36–37; O2SAT 94–99; BMI 34.7
[2025-08-07] MEDS: ALBUTEROL/IPRATROPIUM (Duoneb) RT SOL 3 ML NEBU INH ×6 (03:46→22:10)
[2025-08-07] MEDS: HEPARIN SOD INJ 5000 UNIT/ML VIAL SC ×2 (05:38→13:37)
[2025-08-07 05:44] LABS: Basophils # (Auto) 0.1 Thou/mm3 (0.0-0.2); Basophils % (Auto) 1 % (0-2.5); Eosinophils # (Auto) 0.5 Thou/mm3 (0.0-0.5); Eosinophils % (Auto) 7 % (0-10); Hematocrit 26.0 % (41.0-53.0); Immature Granulocytes Auto 0.03 Thou/mm3 (0.00-0.00); Lymphocytes # (Auto) 1.6 Thou/mm3 (1.0-4.8); Lymphocytes % (Auto) 24 % (10-50); Mean Corpuscular HGB Conc 31.9 g/dl (31.0-37.0); Mean Corpuscular Hemoglobin 31.8 pg (25.0-35.0); Mean Corpuscular Volume 100 fL (80-100); Monocytes # (Auto) 0.8 Thou/mm3 (0.0-0.8); Monocytes % (Auto) 11 % (0-12); Neutrophils # (Auto) 3.9 Thou/mm3 (1.8-7.7); Neutrophils % (Auto) 56 % (37-80); Nucleated Red Blood Cell # 0.00 Thou/mm3 (0.00-0.00); Nucleated Red Blood Cell % 0 /100 WBC (0); Platelet Count 141 Thou/mm3 (140-440); RDW Standard Deviation 52.7 fL (35.1-43.9); Red Blood Count 2.61 Miln/mm3 (4.50-5.90); White Blood Count 6.9 Thou/mm3 (3.8-10.6)
[2025-08-07 05:54] LABS: Alanine Aminotransferase 13 U/L (10-49); Albumin, Serum 3.0 gm/dL (3.4-4.8); Albumin/Globulin Ratio 1.3 (1.2-2.2); Alkaline Phosphatase 74 U/L (46-116); Anion Gap 13 (7-16); Aspartate Amino Transferase 17 U/L (0-34); BUN/Creatinine Ratio 13 Ratio (12-20); Bilirubin,Total 0.3 mg/dL (0.3-1.2); Blood Urea Nitrogen 59 mg/dL (9-23); Calcium 7.7 mg/dL (8.3-10.6); Calcium (Corrected) 8.5 mg/dL (8.5-10.1); Carbon Dioxide 19.1 mMol/L (20.0-31.0); Chloride 119 mMol/L (98-107); Creatinine (Component) 4.5 mg/dL (0.6-1.3); Estimated Creatinine Clearance 17.3 mL/min (>60); Globulin 2.3 gm/dL (2.3-3.5); Glucose 80 mg/dL (74-106); Magnesium 2.1 mg/dL (1.6-2.6); Osmolality,Calculated 315 (275-295); Phosphorous 5.4 mg/dL (2.4-5.1); Potassium 4.3 mMol/L (3.4-5.1); Sodium 151 mMol/L (136-145); Total Protein 5.3 gm/dL (5.7-8.2); eGFR 13 See Note
[2025-08-07 05:55] LABS: Hemoglobin 8.3 g/dL (13.5-16.0)
[2025-08-07] MEDS: cefTRIAXone/D5w 1gm IV premix 1 GM/50 ML BAG IV (08:10)
[2025-08-07] MEDS: FUROSEMIDE INJ 10 MG/ML 4ML VIAL 40 MG IVP (08:11)
[2025-08-07] MEDS: SENNA/DOCUSATE SOD 1 TAB TABLET PO (08:12)
[2025-08-07] MEDS: CLOPIDOGREL BISULFATE 75 MG TABLET PO (08:12)
--- NOTE | 2025-08-07 11:45 | ESPR_ITS ---
<Statement entered by Jordon Ta MD - 08/07/25 13:04> No acute overnight events. Seen and examined at bedside while receiving breathing treatment. States that he has no shortness of breath or chest pain at this time. Sodium continues to be elevated at 151 but given fluid overload status no IVF was started. Touched base with nephrology, pending recommendations at this time. Echo showed EF 55 to 60%, indeterminate diastolic function, normal RV size and function, RVSP 15 mmHg, moderate thickening aortic valve, mildly enlarged LA and RA. Continue with breathing treatments, IV antibiotics, and Lasix. Blood, urine, and sputum cultures pending. ----- Note reviewed and agree with care plan as documented. Please refer to the note below for further details. Plan discussed with attending physician Dr. Marilu Ta MD PGY-2 Internal Medicine Documentation for date of: 08/07/25 Subjective Subjective Interval history: No acute overnight events. Patient states he is doing well. Vital signs are stable, saturating well on room air. Patient's kidney function tests continue to not be improved. Dr. Ovalle has consulted and will visit the patient today. Patient continues to be fluid overloaded with elevated sodium levels. Urine output has been poor as well. Repeat renal panel ordered today with similar results as previous. Exam Vital Signs Temp Pulse Resp BP Pulse Ox O2 Del Method 97.2 F 88 20 134/77 H 98 Room Air 08/07/25 08:00 08/07/25 11:38 08/07/25 11:38 08/07/25 08:11 08/07/25 11:38 08/07/25 08:00 Narrative Exam General: No acute distress, well nourished Eye: PERRL, EOMI, normal conjunctiva, no scleral icterus HENT: Normocephalic, atraumatic, normal hearing, moist oral mucosa Neck: Supple, non-tender, no JVD, no lymphadenopathy Lungs: Mild wheezes bilaterally Heart: Normal S1 and S2, no S3 or S4 appreciated. Normal rate and regular rhythm, no murmurs, rubs gallops. 3+ pitting edema of b/l LE and abdomen Abdomen: Soft, non-tender, non-distended, normal bowel sounds. No guarding or rebound tenderness. Musculoskeletal: Normal range of motion and strength, no tenderness or swelling Skin: Skin is warm, dry, no rashes or lesions. Neurologic: Alert, awake and oriented x3. CN II-XII grossly intact. No focal neuro deficits. No signs of meningeal irritation noted. Psychiatric: Cooperative, appropriate mood and affect Objective Labs 08/07/25 04:20 08/07/25 14:08 Labs: Laboratory Results - last 24 hr 08/06/25 08/06/25 08/06/25 13:35 14:11 15:45 WBC 8.3 RBC 2.99 L Hgb 9.2 L Hct 29.3 L MCV 98 MCH 30.8 MCHC 31.4 RDW Std Deviation 52.2 H Plt Count 145 Neut % (Auto) 66 Lymph % (Auto) 17 [place] % (Auto) 10 Eos % (Auto) 5 Baso % (Auto) 1 Neut # (Auto) 5.5 Lymph # (Auto) 1.4 [place] # (Auto) 0.9 H Eos # (Auto) 0.4 Baso # (Auto) 0.1 Immature Gran # (Auto) 0.04 H Absolute Nucleated RBC 0.00 Immature Gran % 1 H Nucleated RBC % 0 PT INR APTT Sodium 149 H Potassium 4.5 Chloride 119 H Carbon Dioxide 19.0 L Anion Gap 11 BUN 56 H Creatinine 4.5 H* Estim Creat Clear Calc 17.4 L eGFR 13 L* BUN/Creatinine Ratio [address] Glu mg/dL Hemoglobin A1c Calculated Osmolality 312 H Lactic Acid 0.4 Calcium 7.9 L Corrected Calcium 8.3 L Phosphorus Magnesium Total Bilirubin 0.4 AST 18 ALT 14 Alkaline Phosphatase 80 Troponin I < 0.020 B-Natriuretic Peptide 518 H* Total Protein 6.0 Albumin 3.5 Globulin 2.5 Albumin/Globulin Ratio 1.4 Ur Collection Type Voided Urine Color Lt-Yellow Urine Clarity Clear Urine pH 6.5 Ur Specific [place] 1.018 Urine Protein 3+ A Urine Glucose (UA) 3+ A Urine Ketones Trace Urine Blood 1+ A Urine Nitrite Negative Urine Bilirubin Negative Urine Urobilinogen (Auto) Negative Ur Leukocyte Esterase Negative Urine RBC 3 Urine WBC 11 H Ur Squamous Epith Cells < 1 Urine Bacteria None Ur Culture Indicated? Yes Influenza A (Rapid) Negative Influenza B (Rapid) Negative SARS-CoV-2 Ag (Rapid) Negative 08/06/25 08/06/25 08/07/25 17:14 22:38 04:20 WBC 6.9 RBC 2.61 L Hgb 8.3 L Hct 26.0 L MCV 100 MCH 31.8 MCHC 31.9 RDW Std Deviation 52.7 H Plt Count 141 Neut % (Auto) 56 Lymph % (Auto) 24 [place] % (Auto) 11 Eos % (Auto) 7 Baso % (Auto) 1 Neut # (Auto) 3.9 Lymph # (Auto) 1.6 [place] # (Auto) 0.8 Eos # (Auto) 0.5 Baso # (Auto) 0.1 Immature Gran # (Auto) 0.03 H Absolute Nucleated RBC 0.00 Immature Gran % 0 Nucleated RBC % 0 PT 12.3 H INR 1.2 APTT 29.9 Sodium 150 H 151 H Potassium 4.4 4.3 Chloride 119 H 119 H Carbon Dioxide 20.1 19.1 L Anion Gap 11 13 BUN 59 H 59 H Creatinine 4.5 H* 4.5 H* Estim Creat Clear Calc 17.4 L 17.3 L eGFR 13 L* 13 L* BUN/Creatinine Ratio 13 13 Glucose [address] Glu mg/dL 103 Hemoglobin A1c 5.2 Calculated Osmolality 315 H 315 H Lactic Acid Calcium 7.5 L 7.7 L Corrected Calcium 8.3 L 8.5 Phosphorus 4.9 5.4 H Magnesium 2.1 Total Bilirubin 0.3 AST 17 ALT 13 Alkaline Phosphatase 74 Troponin I B-Natriuretic Peptide Total Protein 5.3 L Albumin 3.0 L D 3.0 L Globulin 2.3 Albumin/Globulin Ratio 1.3 Ur Collection Type Urine Color Urine Clarity Urine pH Ur Specific [place] Urine Protein Urine Glucose (UA) Urine Ketones Urine Blood Urine Nitrite Urine Bilirubin Urine Urobilinogen (Auto) Ur Leukocyte Esterase Urine RBC Urine WBC Ur Squamous Epith Cells Urine Bacteria Ur Culture Indicated? Influenza A (Rapid) Influenza B (Rapid) SARS-CoV-2 Ag (Rapid) Quality Measures Quality Measures VTE prophylaxis Advance care planning discussed with:: patient Assessment & Plan Assessment Current Active Medications: Generic Name Dose Route Start Last Admin Trade Name Freq PRN Reason Stop Dose Admin Acetaminophen 650 mg 08/06/25 16:52 Acetaminophen 325 Mg Tablet PO 09/05/25 16:51 Q6H PRN Fever >100.3 Acetaminophen 650 mg 08/06/25 16:52 Acetaminophen 325 Mg Tablet PO 09/05/25 16:51 Q6H PRN PAIN SCALE 1-3 (mild Albuterol 2 puff 08/06/25 17:43 Albuterol Inh 8 Gm INH 09/05/25 17:42 Q4HR PRN SHORTNESS OF BREATH OR WHEEZE Albuterol/Ipratropium 3 ml 08/06/25 19:00 08/07/25 11:36 Albuterol/Ipratropium (Duoneb) Rt Latosha 3 Ml Nebu INH 09/05/25 18:59 3 ml Q4HRRT MICHELLE Administration Atorvastatin Calcium 40 mg 08/06/25 21:00 08/06/25 21:16 Atorvastatin Calcium 20 Mg Tablet PO 09/05/25 20:59 40 mg HS MICHELLE Administration Clopidogrel Bisulfate 75 mg 08/07/25 09:00 08/07/25 08:12 Clopidogrel Bisulfate 75 Mg Tablet PO 09/06/25 08:59 75 mg QDAY MICHELLE Administration Furosemide 40 mg 08/06/25 21:00 08/07/25 08:11 Furosemide Inj 10 Mg/Ml 4ml Vial IVP 09/05/25 20:59 40 mg BID MICHELLE Administration Heparin Sodium (Porcine) 5,000 unit 08/06/25 22:00 08/07/25 05:38 Heparin Sod Inj 5000 Unit/Ml Vial SC 08/20/25 21:59 5,000 unit Q8HR MICHELLE Administration Ceftriaxone Sodium/Dextrose 1 gm in 50 mls @ 100 mls/hr 08/06/25 16:59 08/07/25 08:10 Rocephin/D5w 1gm Iv Premix IV 08/13/25 16:58 100 mls/hr QDAY MICHELLE Administration Azithromycin 500 mg/ Sodium 250 mls @ 250 mls/hr 08/07/25 21:00 Chloride IV 08/13/25 20:59 QPM MICHELLE Ondansetron HCl 4 mg 08/06/25 16:52 Ondansetron Inj 2 Mg/Ml Inj 2 Ml IVP 09/05/25 16:51 Q6H PRN NAUSEA OR VOMITING Protocol Sennosides 1 tab 08/07/25 09:00 08/07/25 08:12 Senna/Docusate Sod 1 Tab Tablet PO 09/06/25 08:59 1 tab QDAY MICHELLE Administration Protocol Plan Mr. Mcconnell is a 70 y/o male with PMH CKD stage IV (follows with Vasquez), CAD s/p stenting (follows with [facility]), hyperlipidemia, and hypertension who presented to the ED on 08/06 with exertional dyspnea, b/l LE swelling x several weeks; productive cough and chest pain that does not radiate x 1 week. Admitted for CHF exacerbation, PNA (CAP), and KERWIN. #Exertional dyspnea #c/f CHF exacerbation #c/f cardiorenal syndrome No documented hx CHF in charts. Pt states he takes a water pill at home Evidence of fluid overload - b/l LE and abdominal pitting edema, exertional dyspnea, tachypnea, chest discomfort BNP 518 Troponin unremarkable, EKG NSR HR 77, QTc 420 CXR: vascular congestion Echo results showed EF 55-60, diastolic indeterminate. Plan: - Lasix 40 mg IV BID - Strict I+Os - Daily weights - Fluid restriction 1800 mL/day #Community acquired pneumonia Afebrile, no leukocytosis. Wet sounding productive cough x 1 week, tachypnea spO2 appropriate on room air Flu and COVID negative CXR: right base pneumonia Plan: - Ceftriaxone 1 g IV daily (08/06-) - Azithromycin 500 mg IV daily (08/06-) - Duoneb q4h michelle - Albuterol q4h PRN - Pending sputum cx - Blood cx NG24 hrs #KERWIN #CKD stage IV #Hypernatremia Follows with Dr. Ovalle On admit: BUN 56, Cr 4.5 (baseline ~3), eGFR 13 (baseline ~mid 20s) Plan: - Consulted Dr. Ovalle, appreciate recs - Cannot give fluids as pt clinically fluid overloaded ? Follow-up renal panel #Normocytic anemia On admit: hgb 9.2, HCT 29.3, MCV 98 No s/sx active bleed Plan: - CTM with daily CBC #CAD s/p stenting Follows with Dr. Palomo Angiography 2021: normal sized LV, mid anterior wall/LV hypokineses, good overall LV systolic function with LVEF 60%. Mid-moderate coronary atherosclerosis with 40% stenosis in the mid LAD, s/p stenting, 99% stenosis side branch; 20% eccentric stenosis mid RCA with minimal aneurysmal dilatation of mid RCA. Plan: - Atorvastatin 40 mg PO QHS - Plavix 75 mg PO daily (home med) #Hypertension Plan: - Carvedilol 12.5 mg PO BID (home med) - held / c/f CHF exacerbation #Hyperlipidemia Plan: - Atorvastatin 40 mg PO QHS Checklist Dispo: Admit for diuresis, IV abx Lines: PIV Diet: Cardiac Bowel Reg: doc/senna VTE ppx: heparin subQ GI ppx: n/a Pain mgmt: Tylenol 650 mg PO q6h PRN Code status: full Patient plan of care was discussed with the attending physician, Dr. Michel & senior resident Dr. Cisoc Santos MD PGY-1 Attending Provider Attestation/Addendum I have seen and examined the patient. I was physically present for the isaac portions of the services provided including history, physical exam, diagnosis, treatment plans and orders. I agree with assessment and plan of care as documented by residents. Patient seen and examined at bedside this morning. States he feels better compared to yesterday and denies any new complaints. Vital signs are stable, saturating well on room air. Continues to have significant bilateral pitting edema, continues to have mild wheezing bilaterally. Noted that patient has inadequate urine output despite being on Lasix 40 mg IV twice daily. With concern for volume overload, possibly cardiorenal syndrome, we will continue with IV Lasix, fluid restriction and monitor his daily weights. We will continue with Rocephin and azithromycin for community-acquired pneumonia. Patient's sodium level continues to worsen from 149 yesterday to 151 today, discussed with nephrology, plans to discuss with patient regarding start of hemodialysis, appreciate recommendations. Cardiology following closely, appreciate recommendations. Even though this this note was carefully revised there may still be minor errors in jr. systems administrator due to voice recognition software. Anisa Michel MD
--- NOTE | 2025-08-07 13:09 | ESCONSULT_ITS ---
HPI Data of Consult Patient: new to practice Consult date: 08/06/25 Requesting Physician: Anisa Michel MD Admitting Provider: Anisa Michel MD Attending Provider: Anisa Michel MD Primary Care Provider: Yakov Nichols MD Consult Narrative Reason for consult: Fluid overload History of present illness: Mr. Mcconnell is a 70-year-old male with past medical history of CKD stage IV established with Dr. Ovalle, CAD status post stent mid LAD follows Dr. Palomo, GI bleed 08/01 - GE junction ulcer/internal hemorrhoids grade IV, diverticulosis, hyperlipidemia, BPH, nephrolithiasis and ?COPD/asthma who presented to [facility] emergency department with a chief complaint of shortness of breath. Patient complains of shortness of breath on activity and while lying flat, limited ADLs and IADLs secondary to dyspnea has worsening bilateral lower extremity swelling for the last several weeks. Complains of productive cough whitish discharge and on and off chest discomfort nonradiating for the last 1 week as well. Patient otherwise denies any syncope presyncope palpitations falls and PND. Hospital workup: On presentation hemoglobin 9.2, sodium 149, chloride 119, bicarb 19, BUN 56, creatinine 4.5 eGFR 13, glucose 108 osmolality 312 calcium 7.9 corrected calcium 8.3 BNP 518 albumin 3.5. Troponin on presentation negative, less than 0.020 EKG shows sinus rhythm, rate 77, QTc 420 Chest x-ray shows significant right base pneumonia, vascular congestion noted Echocardiogram 08/06 shows EF 55 to 60%, indeterminate diastolic function, RV chamber sizes normal systolic right ventricle function is normal estimated RVSP is 15 mmHg, moderate AV sclerosis no stenosis and trace regurgitation, moderate thickening and calcification of aortic valve leaflet there is trace to mild MR and TR. Left atrium is mildly enlarged and the right atrium is mildly enlarged as well. 08/07/2025: Patient seen and examined at bedside, currently on room air saturating well, started on Lasix 40 mg IV twice daily by primary team, nephrology is consulted. Patient's underlying fluid overload does seem secondary to progression of kidney disease. Case was discussed with patient, risks and benefit explained of Bumex drip, patient verbalizes that he would like to avoid dialysis and is okay with a trial of Bumex drip. Will start patient on Bumex drip today, if patient has worsening status, patient will undergo dialysis catheter insertion in a.m. per nephrology. cc:: cc: Anisa Michel MD Review of Systems Review of Systems Systems Reviewed: All systems reviewed, normal except as documented Past Medical History Past Medical History Comments PMH COMMENT: PMHx: CKD stage IV established with Dr. Ovalle, CAD status post stent mid LAD follows Dr. Palomo, GI bleed 08/01 - GE junction ulcer/internal hemorrhoids grade IV, diverticulosis, hyperlipidemia, BPH, nephrolithiasis and ?COPD/asthma Allergies: Albuterol every 4 hours as needed, atorvastatin 40 mg every afternoon, Coreg 12.5 Home meds: Pending med rec SgHx: CABG, ureteral stenting (s/p removal of ureteral stent) SHx: Denies smoking, EtOH, recreational drug use. Lives alone, sometimes daughter comes to visit and helps take care of him. Retired, used to work as contractor, entrepeneur. FHx: No pertinent family history Exam Vital Signs Temp Pulse Resp BP Pulse Ox O2 Del Method 97.2 F 68 15 143/83 H 94 L Room Air 08/07/25 12:00 08/07/25 12:00 08/07/25 12:00 08/07/25 12:00 08/07/25 12:00 08/07/25 12:00 Narrative Exam General: No acute distress, well nourished Eye: PERRL, EOMI, normal conjunctiva, no scleral icterus HENT: Normocephalic, atraumatic, normal hearing, moist oral mucosa Neck: Supple, non-tender, no JVD, no lymphadenopathy Lungs: Mild wheezes bilaterally Heart: Normal S1 and S2, no S3 or S4 appreciated. Normal rate and regular rhythm, no murmurs, rubs gallops. 3+ pitting edema of b/l LE and abdomen Abdomen: Soft, non-tender, non-distended, normal bowel sounds. No guarding or rebound tenderness. Musculoskeletal: Normal range of motion and strength, no tenderness or swelling Skin: Skin is warm, dry, no rashes or lesions. Neurologic: Alert, awake and oriented x3. CN II-XII grossly intact. No focal neuro deficits. No signs of meningeal irritation noted. Psychiatric: Cooperative, appropriate mood and affect Results Labs 08/08/25 04:48 08/08/25 17:24 Labs: Short CBC 08/06/25 08/07/25 Range/Units 13:35 04:20 WBC 8.3 6.9 (3.8-10.6) Thou/mm3 Hgb 9.2 L 8.3 L (13.5-16.0) g/dL Hct 29.3 L 26.0 L (41.0-53.0) % Plt Count 145 141 (140-440) Thou/mm3 BMP 08/06/25 08/06/25 08/07/25 13:35 22:38 04:20 Sodium 149 H 150 H 151 H Potassium 4.5 4.4 4.3 Chloride 119 H 119 H 119 H Carbon Dioxide 19.0 L 20.1 19.1 L BUN 56 H 59 H 59 H Creatinine 4.5 H* 4.5 H* 4.5 H* Glucose 108 H 115 H 80 Calcium 7.9 L 7.5 L 7.7 L Cardiac Enzymes 08/06/25 Range/Units 13:35 Troponin I < 0.020 (0.0-0.045) ng/mL Liver Function 08/06/25 08/06/25 08/07/25 Range/Units 13:35 22:38 04:20 Total Bilirubin 0.4 0.3 (0.3-1.2) mg/dL AST 18 17 (0-34) U/L ALT 14 13 (10-49) U/L Alkaline Phosphatase 80 74 (46-116) U/L Albumin 3.5 3.0 L D 3.0 L (3.4-4.8) gm/dL Urine 08/06/25 Range/Units 14:11 Urine Color Lt-Yellow (Lt Yel-Yel) Urine Clarity Clear (Clear/Hazy) Urine pH 6.5 (5.0-7.0) Ur Specific [place] 1.018 (1.001-1.035) Urine Protein 3+ A (Neg - Trace) Urine Glucose (UA) 3+ A (Negative) Quality Measures Quality Measures none Advance care planning discussed with:: patient Medications Home Medications and Allergies Home Medications ?Medication ?Instructions ?Recorded ?Confirmed ?Type atorvastatin 40 mg tablet 40 mg PO QPM 10/02/19 History carvedilol 12.5 mg tablet 12.5 mg PO BID 11/23/1907/10 History albuterol sulfate 0.63 mg/3 mL 0.63 mg inhalation Q4H PRN Wheezing 01/24/20 08/06/25 History solution for nebulization hydrochlorothiazide 25 mg tablet 25 mg PO DAILY PRN ed krissy 03/11/22 08/06/25 History clopidogrel 75 mg tablet 75 mg PO DAILY 07/14/2507/10 History ciprofloxacin HCl 500 mg tablet 500 mg PO BID 08/06/25 08/06/25 History zolpidem 10 mg tablet 10 mg PO HS PRN sleep 08/06/25 History Allergies Allergy/AdvReac Type Severity Reaction Status Date / Time No Known Allergies Allergy Verified 08/06/25 12:08 Visit Medications Acetaminophen (Acetaminophen 325 Mg Tablet) 650 mg PO Q6H PRN PRN Reason: Fever >100.3 Stop: 09/05/25 16:51 Acetaminophen (Acetaminophen 325 Mg Tablet) 650 mg PO Q6H PRN PRN Reason: PAIN SCALE 1-3 (mild Stop: 09/05/25 16:51 Albuterol (Albuterol Inh 8 Gm) 2 puff INH Q4HR PRN PRN Reason: SHORTNESS OF BREATH OR WHEEZE Stop: 09/05/25 17:42 Albuterol/Ipratropium (Albuterol/Ipratropium (Duoneb) Rt Latosha 3 Ml Nebu) 3 ml INH Q4HRRT MARK Stop: 09/05/25 18:59 Last Admin: 08/07/25 11:36 Dose: 3 ml Atorvastatin Calcium (Atorvastatin Calcium 20 Mg Tablet) 40 mg PO HS MARK Stop: 09/05/25 20:59 Last Admin: 08/06/25 21:16 Dose: 40 mg Clopidogrel Bisulfate (Clopidogrel Bisulfate 75 Mg Tablet) 75 mg PO QDAY MARK Stop: 09/06/25 08:59 Last Admin: 08/07/25 08:12 Dose: 75 mg Furosemide (Furosemide Inj 10 Mg/Ml 4ml Vial) 40 mg IVP BID MARK Stop: 09/05/25 20:59 Last Admin: 08/07/25 08:11 Dose: 40 mg Heparin Sodium (Porcine) (Heparin Sod Inj 5000 Unit/Ml Vial) 5,000 unit SC Q8HR MARK Stop: 08/20/25 21:59 Last Admin: 08/07/25 05:38 Dose: 5,000 unit Ceftriaxone Sodium/Dextrose (Rocephin/D5w 1gm Iv Premix) 1 gm in 50 mls @ 100 mls/hr IV QDAY MARK Stop: 08/13/25 16:58 Last Admin: 08/07/25 08:10 Dose: 100 mls/hr Azithromycin 500 mg/ Sodium (Chloride) 250 mls @ 250 mls/hr IV QPM MARK Stop: 08/13/25 20:59 Ondansetron HCl (Ondansetron Inj 2 Mg/Ml Inj 2 Ml) 4 mg IVP Q6H PRN; Protocol PRN Reason: NAUSEA OR VOMITING Stop: 09/05/25 16:51 Sennosides (Senna/Docusate Sod 1 Tab Tablet) 1 tab PO QDAY MARK; Protocol Stop: 09/06/25 08:59 Last Admin: 08/07/25 08:12 Dose: 1 tab Discontinued Medications Albuterol/Ipratropium (Albuterol/Ipratropium (Duoneb) Rt Latosha 3 Ml Nebu) 3 ml INH X1 ONE Stop: 08/06/25 13:17 Last Admin: 08/06/25 13:29 Dose: 3 ml Ceftriaxone Sodium/Dextrose (Rocephin/D5w 1gm Iv Premix) 1 gm in 50 mls @ 100 mls/hr IV X1 ONE Stop: 08/06/25 14:07 Last Infusion: 08/06/25 14:41 Dose: Infused Azithromycin 500 mg/ Sodium (Chloride) 250 mls @ 250 mls/hr IV X1 ONE Stop: 08/06/25 18:14 Last Infusion: 08/06/25 18:42 Dose: Infused Sodium Chloride (Sodium Chloride Rt 10% 15 Ml Nebu) 5 ml INH X1 ONE Stop: 08/06/25 16:53 Last Admin: 08/06/25 17:49 Dose: Not Given Assessment & Plan Plan Assessment and Plan: Summary: Mr. Mcconnell is a 70-year-old male with past medical history of CKD stage IV established with Dr. Ovalle, CAD status post stent mid LAD follows Dr. Palomo, GI bleed 08/01 - GE junction ulcer/internal hemorrhoids grade IV, diverticulosis, hyperlipidemia, BPH, nephrolithiasis and ?COPD/asthma who presented to [facility] emergency department with a chief complaint of shortness of breath. Patient complains of shortness of breath on activity and while lying flat, limited ADLs and IADLs secondary to dyspnea has worsening bilateral lower extremity swelling for the last several weeks. #Fluid overload status #Acute decompensated diastolic heart failure, HFpEF EF 55 to 60% #CKD stage IV progression to ESRD Patient presented with anasarca, 3+ bilateral lower extremity edema, patient generalized anasarca noted on physical exam. Patient BNP on presentation 518, did complain of mild chest discomfort, troponin negative, EKG shows normal sinus rhythm, heart rate 77 QTc 420 Chest x-ray shows prominent vascular congestion Risks and benefits of Bumex gtt. discussed with patient, patient verbalizes that he would like to avoid dialysis and is okay with a trial of Bumex. Patient was started on Lasix 40 twice daily, was given additional dose today however patient has poor urine output, likely progression of CKD. Recommendations: - Bumex gtt. trial, started on Bumex drip 2 mg/h today - If no improvement in renal function in a.m., we agree with hemodialysis catheter placement - Strict intake and output, daily weight, fluid restriction 1500 cc #CAD status post stent mid LAD Cardiac Cath 2021: - Aiee-dr-spcatanr coronary atherosclerosis with 40% stenosis in the mid left anterior descending coronary artery, 99% stenosis of side branch of a tiny caliber vessel stenosis of tiny caliber side branch of the first diagonal branch and patent previously stented mid left anterior descending coronary artery, 20% eccentric stenosis in the proximal right coronary artery, 40% eccentric stenosis in the mid right coronary artery, and minimal aneurysmal dilatation of the mid right coronary artery. - Mid anterior wall, left ventricular hypokinesis with overall good left ventricular systolic function with ejection fraction of 60%. - Normal right femoral arterial angiography. Recommendations: - Patient on Plavix 75 mg daily, recommend continuing - Cardiac restratification with lipid panel A1c and TSH/free T4 #Hypertension Patient on Coreg 12.5 mg p.o. twice daily and hydrochlorothiazide 25 mg p.o. daily as needed edema -Resume Coreg as blood pressure permissible for management of hypertension #Hyperlipidemia Lipid panel 05/16/2025 shows triglycerides 72, cholesterol 132, LDL 71, HDL 47 Patient on atorvastatin 40 mg p.o. every afternoon please resume #Electrolyte abnormalities #Hypernatremia #Hyperchloremia #Hyperphosphatemia - Management as per nephrology Case discussed with Attending Physician Dr. Navdeep Baer MD Internal Medicine PGY-2 Disclaimer: This note was dictated by speech recognition. Minor errors in sheet manufacturing supervisor may be present due to voice recognition software. Attending Provider Attestation/Addendum I have personally seen and examined the patient separately on the above date of service and discussed the plan of care with the resident. I reviewed the resident Margarita Baer consultation progress note and agree with the resident findings and plan in the note above and have also edited the documentation to reflect my findings and plan. Navdeep Barajas M.D. Interventional Cardiology
[2025-08-07 13:42] LABS: Chloride,Urine Random 118.0 mMol/L (55.0-125.0); Potassium,Urine Random 15 mMol/L (12-62); Protein Total, Random Urine 321 mg/dL (1-14); Sodium,Urine Random 122.0 mMol/L (20.0-110.0)
[2025-08-07 14:37] LABS: Albumin, Serum 3.0 gm/dL (3.4-4.8); Anion Gap 10 (7-16); BUN/Creatinine Ratio 13 Ratio (12-20); Blood Urea Nitrogen 59 mg/dL (9-23); Calcium 7.8 mg/dL (8.3-10.6); Calcium (Corrected) 8.6 mg/dL (8.5-10.1); Carbon Dioxide 21.2 mMol/L (20.0-31.0); Chloride 117 mMol/L (98-107); Creatinine (Component) 4.6 mg/dL (0.6-1.3); Estimated Creatinine Clearance 16.9 mL/min (>60); Glucose 109 mg/dL (74-106); Osmolality,Calculated 311 (275-295); Phosphorous 5.2 mg/dL (2.4-5.1); Potassium 4.6 mMol/L (3.4-5.1); Sodium 148 mMol/L (136-145); eGFR 13 See Note
--- NOTE | 2025-08-07 14:55 | PC.SS ---
Rounding Note: Patient receiving antibiotics to address PNA. Sodium level elevated. Dr. Ovalle is consulting.
--- NOTE | 2025-08-07 16:10 | PC.SS ---
INSTRUMENT AND CONTROL SERVICE PERSON conducted bedside contact with the patient conduct initial assessment and to discuss discharge planning.? Patient confirmed demographic information.? Patient resides alone at home.? Patient is retired.? Patient does not utilize any form of DME to assist with ambulation.? Patient does not utilize home oxygen.? Patient describes the ability to complete ADL?s independently.? Patient identified daughter, Alysha Arce ; as medical surrogate decision maker.? Patient?s PCP is Dr. Nichols ZAYDA.? Patient?s drier feeder is Dr. Palomo.? Patient?s neonatal nurse is Dr. Ovalle.? The patient does not participate with dialysis. ?Plan is for the patient to return home at the time of discharge.? Patient confirms access to basic utilities and provisions.? No residential concerns reported by the patient.? Family will provide transportation on behalf of the patient.? No further discharge needs identified by the patient.? No further intervention required at this time, social services assistant will be available to address any further concerns.? Next of Kin: Alysha Arce D/C Plan: Home
[2025-08-07 18:04] LABS: INR 1.1 (0.9-1.3); Partial Thromboplastin Time 32.5 Seconds (22.0-36.0); Prothrombin Time 12.0 Seconds (9.0-12.2)
[2025-08-07] MEDS: TUBERCULIN PPD INJ 5 UNIT/0.1 ML DOSE ID (18:31)
[2025-08-07] MEDS: EPOETIN ALFA-EPBX INJ 10,000 UNIT/ML VIAL (NON-ESRD) 10000 UNIT SC (18:47)
[2025-08-07] MEDS: ATORVASTATIN CALCIUM 20 MG TABLET 40 MG PO (21:27)
[2025-08-07] MEDS: ZOLPIDEM 5 MG TABLET PO (21:27)
[2025-08-07] MEDS: BUMETANIDE INJ 20 MG in CONTAINER,EMPTY 50 ML 1 BAG 8 MG IV (21:27)
[2025-08-07] MEDS: AZITHROMYCIN INJ 500 MG in SODIUM CHLORIDE 0.9% 250 ML 250 ML 250 MG IV (21:27)
--- NOTE | 2025-08-07 22:01 | ESCONSULT_ITS ---
RE: GENESIS KAUR : 1955 DATE OF CONSULTATION: 08/07/2025 REASON FOR REFERRAL: Progressively worsening kidney function, volume overload. REFERRING PHYSICIAN: Brittney Lundberg NP. HISTORY OF PRESENT ILLNESS: This patient is a 70-year-old gentleman with past medical history significant for hypertension, coronary artery disease status post coronary artery stent placement, stage IV CKD, and biopsy proven membranous glomerulonephritis. He was initially found with proteinuria and had a kidney biopsy sometime in 2006. It turned out to be membranous GN. The patient did not tolerate high dose steroid and cyclosporine, but luckily he went into remission. In 2013, the patient had a relapse of his membranous glomerulonephritis, but could not tolerate steroids again. At that time, kidney function started to deteriorate. Kidney function continues to decline and lately at Stage 4 CKD whose baseline serum creatinine is around 3.5 mg/dL with severe proteinuria of around 8 g. The patient was last seen in my clinic in 06/2025 and during that time, creatinine was at 3.6. The patient started to have more leg swelling and dyspnea on exertion in the past 3 weeks. The patient also had productive cough of 1- week duration. When he presented, he was found with creatinine of 4.5, sodium of 149, and hemoglobin of 9.2. The patient recently had GI bleeding and received colonoscopy sometime in 05/2025. He was initially admitted as observation. While in the hospital, the patient was noted to have persistently elevated creatinine level despite being given IV fluids. His swelling has sustained for the past 4 weeks or so. He is also getting more short of breath. Of note, the patient also has history of COPD. So, the echocardiogram was done during this admission which showed an EF of 55-60% with indeterminate diastolic function. RVSP is 15 mmHg. His chest x-ray revealed moderate right base pneumonia and mild prominent central pulmonary arteries. He also has a significant right base pneumonia. The patient was started on IV Rocephin 1 g daily for his pneumonia as well. I was asked to see the patient in consultation to manage his worsening kidney function and fluid overload. PAST MEDICAL HISTORY: As previously mentioned, stage IV CKD, coronary artery disease status post coronary artery stent placement, hypertension, severe proteinuria. SURGICAL HISTORY: coronary stent placement, ureteral stent placement. ALLERGIES: NO KNOWN DRUG ALLERGIES. CURRENT MEDICATIONS: 1. Albuterol. 2. Atorvastatin 40 mg at bedtime. 3. Azithromycin 500 mg IV x1, 250 mg daily. 4. Bumetanide 2 mg per hour. 5. Furosemide 40 mg IV x1. 6. Heparin 5000 units subcu q. 8. 7. Ondansetron. 8. Zolpidem 5 mg at bedtime. PHYSICAL EXAMINATION: GENERAL: He is awake, alert, oriented. VITAL SIGNS: Blood pressure of 130/78, O2 sat of 94% on room air, heart rate of 75. HEENT: Anicteric sclerae, normocephalic. NECK: Supple, no JVD. CHEST AND LUNGS: Decreased breath sounds bilaterally with few crackles. CARDIAC: No rub, no murmur. ABDOMEN: Soft, distended. EXTREMITIES: 2-3+ pitting edema on lower extremities and also edema on upper extremities. LABORATORY DATA: Hemoglobin 8.3, WBC 6900, platelet count 141,000. Sodium 148, potassium 4.6, chloride 117, CO2 21.2, BUN 59, creatinine 4.6, glucose 109, calcium 8.6, phosphorus 5.2. Chest x-ray: Right base pneumonia. ASSESSMENT: 1. Stage V chronic kidney disease secondary to hypertension and history of membranous glomerulonephritis. 2. Volume overload secondary to stage V chronic kidney disease. 3. Significant right base pneumonia. 4. Anemia of chronic kidney disease. 5. Coronary artery disease status post coronary stent placement 6. Hypernatremia. 7. 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 PLAN: The patient's kidney function has been slowly declining in the past few years now. I believe that the patient has reached ESRD at this point with volume overload. The patient at this point will need hemodialysis treatment to address volume overload. I will also start him on Retacrit 10,000 units subcutaneously 2 times a week to address his anemia. I will also obtain TB skin test, acute hepatitis panel, and ordered a tunneled dialysis catheter insertion for tomorrow. The patient will start dialysis as soon as the tunneled dialysis catheter is inserted. He will be provided incremental doses of dialysis treatment for the next 3 days. He will be n.p.o. from midnight tonight, and I will also stop his Plavix for today as well as his heparin subcutaneously tonight. Risk of dialysis were discussed thoroughly with him. He acknowledged and consented to start dialysis. I will monitor him very closely. Thank you for allowing me to participate in the care of your patient. DT: ::29 TT: 22:00:00 Ref: [id number] - TID: [id number] MTDD
[2025-08-08] VITALS (29 sets, daily range): BP systolic 110–189; BP diastolic 70–114; PULSE 80–122; RESP 18–96; TEMP 36–36.8; O2SAT 93–100
--- NOTE | 2025-08-08 | XR_ITS ---
Ultrasound-guided needle placement right internal jugular vein Permanent tunneled dialysis catheter insertion, percutaneous Fluoroscopy AP chest, portable, single view. Date and time of procedure: August 08, 2025, 1011 hours INDICATIONS: Renal failure, need for stat and long-term dialysis Informed consent provided Technique: A timeout was completed verifying correct patient, procedure, site, positioning, and special equipment if applicable. The patient was placed in a dependent position appropriate for dialysis catheter placement based on the vein to be cannulated. The patient's right neck was prepped and draped in sterile fashion. Maximum Sterile Barrier Technique used including cap, mask, sterile gown, sterile gloves, and sterile full body drape. If ultrasound technique used: sterile gel and sterile probe covers. Hand Hygiene performed using proper scrub, soap and water, or alcohol-based hand rub. 1% lidocaine was used to anesthetize the surrounding skin area [facility] [place] portable ultrasound apparatus utilized to confirm patency of the right internal jugular vein Utilizing ultrasonographic guidance successful 21-gauge needle puncture into the right internal jugular vein Ultrasound images were recorded and stored. Vessel micropuncture was performed with 21-gauge needle. 0.18 wire guide is introduced into the vein. 0.18 wire is introduced into the vena cava under fluoroscopy. Subcutaneous tunnel formed in the upper chest. Permanent tunneled dialysis catheter placed in the subcutaneous tunnel. Dilators were introduced over the J-wire guide. Tunneled dialysis catheter is introduced through a dilator with venous sheath into the superior vena cava under fluoroscopic guidance. The catheter is sutured in place to the skin and a sterile dressing applied. Perfusion to the extremity distal to the point of catheter insertion is checked and found to be adequate Attending radiologist was present for the entire procedure Estimated blood loss 4 cc. The patient tolerated the procedure well and there were no complications Impression: Successful ultrasound-guided needle placement right internal jugular vein Successful permanent tunneled dialysis catheter insertion, percutaneous Fluoroscopy 0.2-minute radiation dose 1.96 mGy 1 spot fluoroscopic chest film. AP chest performed at completion procedure demonstrates satisfactory position dialysis catheter. May use dialysis catheter.
[2025-08-08 01:21] LABS: Albumin, Serum 3.1 gm/dL (3.4-4.8); Anion Gap 12 (7-16); BUN/Creatinine Ratio 11 Ratio (12-20); Blood Urea Nitrogen 55 mg/dL (9-23); Calcium 7.7 mg/dL (8.3-10.6); Calcium (Corrected) 8.4 mg/dL (8.5-10.1); Carbon Dioxide 18.0 mMol/L (20.0-31.0); Chloride 117 mMol/L (98-107); Creatinine (Component) 5.0 mg/dL (0.6-1.3); Estimated Creatinine Clearance 15.6 mL/min (>60); Glucose 128 mg/dL (74-106); Osmolality,Calculated 309 (275-295); Phosphorous 5.2 mg/dL (2.4-5.1); Potassium 4.2 mMol/L (3.4-5.1); Sodium 147 mMol/L (136-145); eGFR 12 See Note
[2025-08-08] MEDS: ALBUTEROL/IPRATROPIUM (Duoneb) RT SOL 3 ML NEBU INH ×3 (02:26→11:40)
[2025-08-08] MEDS: SENNA/DOCUSATE SOD 1 TAB TABLET PO (05:29)
[2025-08-08] MEDS: POLYETHYLENE GLYCOL 17 GM PACKET PO ×2 (06:02→16:44)
[2025-08-08 06:06] LABS: Basophils # (Auto) 0.1 Thou/mm3 (0.0-0.2); Basophils % (Auto) 1 % (0-2.5); Eosinophils # (Auto) 0.6 Thou/mm3 (0.0-0.5); Eosinophils % (Auto) 7 % (0-10); Hematocrit 27.9 % (41.0-53.0); Hemoglobin 9.0 g/dL (13.5-16.0); Immature Granulocytes Auto 0.03 Thou/mm3 (0.00-0.00); Lymphocytes # (Auto) 1.8 Thou/mm3 (1.0-4.8); Lymphocytes % (Auto) 21 % (10-50); Mean Corpuscular HGB Conc 32.3 g/dl (31.0-37.0); Mean Corpuscular Hemoglobin 30.9 pg (25.0-35.0); Mean Corpuscular Volume 96 fL (80-100); Monocytes # (Auto) 1.1 Thou/mm3 (0.0-0.8); Monocytes % (Auto) 13 % (0-12); Neutrophils # (Auto) 4.8 Thou/mm3 (1.8-7.7); Neutrophils % (Auto) 58 % (37-80); Nucleated Red Blood Cell # 0.00 Thou/mm3 (0.00-0.00); Nucleated Red Blood Cell % 0 /100 WBC (0); Platelet Count 141 Thou/mm3 (140-440); RDW Standard Deviation 50.6 fL (35.1-43.9); Red Blood Count 2.91 Miln/mm3 (4.50-5.90); White Blood Count 8.4 Thou/mm3 (3.8-10.6)
[2025-08-08] MEDS: BUMETANIDE INJ 20 MG in CONTAINER,EMPTY 50 ML 1 BAG 8 MG IV ×2 (06:51→16:45)
[2025-08-08 07:41] LABS: Alanine Aminotransferase 14 U/L (10-49); Albumin, Serum 3.2 gm/dL (3.4-4.8); Alkaline Phosphatase 77 U/L (46-116); Anion Gap 13 (7-16); Aspartate Amino Transferase < 8 U/L (0-34); BUN/Creatinine Ratio 12 Ratio (12-20); Bilirubin,Total 0.5 mg/dL (0.3-1.2); Blood Urea Nitrogen 58 mg/dL (9-23); Calcium 7.9 mg/dL (8.3-10.6); Calcium (Corrected) 8.5 mg/dL (8.5-10.1); Carbon Dioxide 19.5 mMol/L (20.0-31.0); Chloride 116 mMol/L (98-107); Creatinine (Component) 5.0 mg/dL (0.6-1.3); Estimated Creatinine Clearance 15.6 mL/min (>60); Glucose 90 mg/dL (74-106); Magnesium 1.6 mg/dL (1.6-2.6); Osmolality,Calculated 310 (275-295); Phosphorous 5.1 mg/dL (2.4-5.1); Potassium 4.0 mMol/L (3.4-5.1); Sodium 148 mMol/L (136-145); eGFR 12 See Note
--- NOTE | 2025-08-08 08:56 | PC.SS ---
Follow up note: Hep panel labs are pending. Patient will be new for hemodialysis. He will need o/p chair time. Cable Tower Operator is Dr. Castorena. SS will submit all documentation to [facility] once available.
[2025-08-08] MEDS: cefTRIAXone/D5w 1gm IV premix 1 GM/50 ML BAG IV (09:12)
--- OUTSIDE RECORDS SUMMARY | 2025-08-08 10:36 | XMS_ITS | Patient Health Record ---
Author Organization 01[facility] Address [address] [place] [address] Care Team Providers Care Senior Office Support Assistant Sosa Name Role Phone Kraig Gillette Unavailable [phone] April Sargent Unavailable [phone] Reason For Referral No Information REASON FOR VISIT Referral Follow-Up Medications Medication SIG (Take, Route, Frequency, Duration) Notes Start Date End Date Status Zolpidem Tartrate 10 mg Tablet 1 tablet at bedtime as needed Orally Once a day; Duration: 30 days 07/20/2015 Active Solu-Medrol 125mg (IHM) 125mg as directed 04/03/2014 Not-Taking/PRN Tylenol with Codeine #4 300-60 MG Tablet 1 tablet as needed Orally 1 to 2 times per day; Duration: 30 days 08/08/2015 Active predniSONE 10 mg Tablet 1 tablet with fo od or milk Orally Twice a day; Duration: 5 days 10/24/2014 Not-Taking /PRN Lisinopril 20 mg tablet 1Tablet- oral da alisson; Duration: 100 days 07/18/2013 Not-Taking/NH N Aspirin 325mg (IHM) Active Azithromycin 250 MG Tablet 2 tablets on the first day, then 1 tablet daily for 4 days Orally Once a day; Duration: 5 day(s) 03/28/2014 Not-Taking/PRN Atorvastatin Calcium Not-Taking/PRN levoFLOXacin 500 MG Tablet 1 tablet Orally Once a day; Duration: 10 day(s) 10/24/2014 Not-Taking/PRN [place] 7.5-325 MG Tablet 1 tablet as need ed Orally 3x a day; Duration: 30 days 04/17/2014 Not-Taking/PRN Triamcinolone Acetonide 0.1 % Cream 1 application to affected area Externally Twice a day; Duration: 10 days 04/12/2015 Not-Taking/PRN Amphotericin B Powder Not-Taking/PRN Promethazine-DM 6.25-15 MG/5ML Syrup 5 ml as needed Orally every 6 hrs; Duration: 1 week 10/24/2014 Not-Taking/PRN Azithromycin 250 MG Tablet 2 tablets on the first day, then 1 tablet daily for 4 days Orally Once a day; Duration: 5 day(s) 12/22/2014 Not-Taking/PRN Amoxicillin-Pot Clavulanate 875-125 MG Tablet 1 tablet Orally Twice a day; Duration: 10 day(s) 01/15/2015 Not-Taking/PRN Plavix Active Isosorbide Mononitrate Active Valsartan Active Metoprolol Tartrate Active Nitroglycerin 0.4mg (IHM) Active predniSONE 2.5 MG Tablet 1 tablet with food or milk Orally Twice a day Not-Taking/PRN Albuterol HFA 90MCG (10M) 90mcg Aerosol Solution 2 puffs as needed every 4-6 hrs; Duration: 30 days 04/03/2014 Not-Taking/PRN Patient forgot to bring medications Not-Taking/PRN Azithromycin 250 MG Tablet 2 tablets on the first day, then 1 tablet daily for 4 days Orally Once a day; Duration: 5 day(s) 11/06/2014 Not-Taking/PRN Furosemide 40mg (Lasix) (10M) 40mg oral Not-Taking/PRN Azithromycin 250 MG Tablet 2 tablets on the first day, then 1 tablet daily for 4 days Orally Once a day; Duration: 5 day(s) 08/17/2014 Not-Taking/PRN Doxycycline Monohydrate 100 mg Capsule 1 capsule Orally 2 times per day with full glass of water; Duration: 10 day(s) 08/24/2014 Not-Taking/P RN Doxycycline Monohydrate 100 MG Capsule 1 capsule Orally 2 times per day; Duration: 10 day(s) 06/08/2014 Not-Taking/P RN Verapamil HCl ER 180 MG Tablet Extended Release 1 tablet in the morning with food Orally Once a day; Duration: 100 days 08/07/2014 Not-Taking/NH N Doxycycline Monohydrate 100 MG Capsule 1 capsule Orally 2 times per day; Duration: 10 day(s) 12/13/2013 Not-Taking/P RN Sulfamethoxazole-TMP DS 800-160 MG Tablet 1 tablet Orally Twice a day Not-Taking/PRN Immunizations Vaccine Route Administration Date Status Comme nts ZZZ.PVT Flu no pres 6-35m (81363) im Unknown 08/08/2015 Pending ZZZ.PVT Flu w/pres age 3+ (24668) im IM Intramuscular 09/02/2013 Administered Nix Hydra .PVT Pneumococcal (Pneumovax 23) (94450) IM Intramuscular 05/29/2014 Administered .PVT Tdap vac 7+ yrs (63429) im IM 06/13/2013 Administered ( MIGRATED ) Admin By: Esperanza Toth [facility] [address] SITE number: [id number] Was the PM160 initiated? : no ZZZ.PVT Fluzone PFS PreservFree 3yrs+ IM Intramuscular 06/08/2014 Administered Social History Social History Learning Assessment Social Info Question Answer Notes Learning Assessment Learner Patient is the learne r Languange Preference Faroese Learning Preference Visual Learning Barriers (i.e. Unde rstands Plan of Care) no Learning Readiness yes, Patient/Learner stated interrest in learning about patient's health Vision impaired no Hearing impaired no Reading difficulty (i.e. Med ication Labels, Medical Forms) no Drugs/Alcohol: Social Info Question Answer Notes Drugs Have you used drugs other than those for medical reasons in the past 12 months? No Tobacco Use: Social Info Question Answer Notes Exposed to Secondhand Smoke Exposed to 2nd hand smoke No Problems Problem Type SNOMED Code ICD Code Onset Dates Problem Status W/U Status Risk Notes Problem Obesity (621495481) Obesity, unspecified (E66.9) Active confirmed Problem Essential hypertension (17873308) Essential (primary) hypertension (I10) Active confirmed Problem Pain of right knee region (finding) (737545749330894) Pain in right knee (M25.561) Active confirmed Problem Insomnia (155569378) Insomnia, unspecified (G47.00) Active confirmed Problem Hyperlipidemia (95080906) Hyperlipidemia, unspecified (E78.5) Active confirmed Problem Atherosclerotic heart disease of [place] coronary artery without angina pectoris (733462549697623) Atherosclerotic heart disease of [place] coronary artery without angina pectoris (I25.10) Active confirmed Problem Chronic kidney disease stage 3 (disorder) (634400524) Chronic kidney disease, stage 3 (moderate) (N18.3) Active confirmed Problem Chronic kidney disease (228188155) Chronic kidney disease, unspecified (N18.9) Active confirmed Encounters Encounter Location Date Provider Diagnosis [facility] [address] [place] [address] 11/10/2016 [place] Plan Of Treatment Medication Medication Name Sig Start Date Stop Date Notes Zolpidem Tartrate 10 mg Tablet 1 tablet at bedtime as needed Orally Once a day; Duration: 30 days 07/20/2015 Tylenol with Codeine #4 300- 60 MG Tablet 1 tablet as needed Orally 1 to 2 times per day; Duration: 30 days 08/08/2015 Insurance Providers Payer Name Payer Address Payer Phone Subscriber Number Group Number Insured Name Patient Relationship to Insured Coverage Start Date Coverage End Date Ab CHAVEZ [facility] [address] is PCP [address] [place] [address] [id number] Nghia Mcconnell Self - patient is the insured 4 Medications Administered Medication Instructions Date of Administration Dosage Notes Solu-Medrol 125 mg (J2930) 04/03/2014 125 mg Rocephin (Ceftriaxone) 1gm (J0696) 06/06/2014 2 mL Rocephin (Ceftriaxone) 1gm (J0696) 06/06/2014 2 mL Rocephin (Ceftriaxone) 1gm (J0696) 08/17/2014 2 mL Rocephin (Ceftriaxone) 1gm (J0696) 08/17/2014 2 mL Rocephin (Ceftriaxone) 1gm (J0696) 12/22/2014 2 g 1 gram giving in left gluteous medius lot# [id number] Exp. ZZZRocephin, per 1 gram 09/19/2013 1 mg ZZZRocephin, per 1 gram 09/19/2013 1000 mg ZZZRocephin, per 1 gram 09/20/2013 1000 mg ZZZRocephin, per 1 gram 09/21/2013 1 g lidocaine 1 #2ml Medical (General) History Medical History History ICD Code Past medical history : None Reported Surgical History Surgery Date(Month/Year) Knee surgery 200901/05/2013 History of tonsillectomy 01/05/2013 History of appendectomy 01/05/2013
[2025-08-08] MEDS: HEPARIN SOD LOCK SYR 100 UNIT/ML 500 UNIT STFIELD (11:00)
[2025-08-08] MEDS: fentaNYL CIT INJ 50 mCg/ML AMP 2ML 75 MCG IVP (11:02)
[2025-08-08] MEDS: LIDOCAINE INJ PF 1% 5 ML VIAL 10 ML INFL (11:04)
--- NOTE | 2025-08-08 11:19 | PD.RESPRO ---
Documentation for date of: 08/08/25 Subjective Subjective Interval history: Patient seen and examined at bedside. Patient was started on Bumex drip last night, patient had good urine output around 1.8 L Patient received dialysis catheter placement today, nephrology is following We recommend to continue Bumex drip and assess response, creatinine noted to be elevated today however creatinine lags related to urine output. Nephrology is following. Exam Vital Signs Temp Pulse Resp BP Pulse Ox O2 Del Method O2 Flow Rate 98.3 F 105 H 18 173/99 H 96 Nasal Cannula 3 08/08/25 10:23 08/08/25 11:15 08/08/25 11:15 08/08/25 11:15 08/08/25 11:15 08/08/25 11:15 08/08/25 11:15 Narrative Exam General: No acute distress, well nourished Eye: PERRL, EOMI, normal conjunctiva, no scleral icterus HENT: Normocephalic, atraumatic, normal hearing, moist oral mucosa Neck: Supple, non-tender, no JVD, no lymphadenopathy Lungs: No wheezing, crackles appreciated. Heart: Normal S1 and S2, no S3 or S4 appreciated. Normal rate and regular rhythm, no murmurs, rubs gallops. 3+ pitting edema of b/l LE and abdomen Abdomen: Soft, non-tender, non-distended, normal bowel sounds. No guarding or rebound tenderness. Musculoskeletal: Normal range of motion and strength, no tenderness or swelling Skin: Skin is warm, dry, no rashes or lesions. Neurologic: Alert, awake and oriented x3. CN II-XII grossly intact. No focal neuro deficits. No signs of meningeal irritation noted. Psychiatric: Cooperative, appropriate mood and affect Objective Labs 08/08/25 04:48 08/08/25 17:24 Labs: Laboratory Results - last 24 hr 08/07/25 08/07/25 08/07/25 12:31 14:08 17:34 WBC RBC Hgb Hct MCV MCH MCHC RDW Std Deviation Plt Count Neut % (Auto) Lymph % (Auto) [place] % (Auto) Eos % (Auto) Baso % (Auto) Neut # (Auto) Lymph # (Auto) [place] # (Auto) Eos # (Auto) Baso # (Auto) Immature Gran # (Auto) Absolute Nucleated RBC Immature Gran % Nucleated RBC % PT 12.0 INR 1.1 APTT 32.5 Sodium 148 H Potassium 4.6 Chloride 117 H Carbon Dioxide 21.2 Anion Gap 10 BUN 59 H Creatinine 4.6 H* Estim Creat Clear Calc 16.9 L eGFR 13 L* BUN/Creatinine Ratio 13 Glucose 109 H Calculated Osmolality 311 H Calcium 7.8 L Corrected Calcium 8.6 Phosphorus 5.2 H Magnesium Total Bilirubin AST ALT Alkaline Phosphatase Albumin 3.0 L U Random Total Protein 321 H Ur Random Sodium 122.0 H Ur Random Potassium 15 Ur Random Chloride 118.0 08/08/25 08/08/25 00:18 04:48 WBC 8.4 RBC 2.91 L Hgb 9.0 L Hct 27.9 L MCV 96 MCH 30.9 MCHC 32.3 RDW Std Deviation 50.6 H Plt Count 141 Neut % (Auto) 58 Lymph % (Auto) 21 [place] % (Auto) 13 H Eos % (Auto) 7 Baso % (Auto) 1 Neut # (Auto) 4.8 Lymph # (Auto) 1.8 [place] # (Auto) 1.1 H Eos # (Auto) 0.6 H Baso # (Auto) 0.1 Immature Gran # (Auto) 0.03 H Absolute Nucleated RBC 0.00 Immature Gran % 0 Nucleated RBC % 0 PT INR APTT Sodium 147 H 148 H Potassium 4.2 4.0 Chloride 117 H 116 H Carbon Dioxide 18.0 L 19.5 L Anion Gap 12 13 BUN 55 H 58 H Creatinine 5.0 H* 5.0 H* Estim Creat Clear Calc 15.6 L 15.6 L eGFR 12 L* 12 L* BUN/Creatinine Ratio 11 L 12 Glucose 128 H 90 Calculated Osmolality 309 H 310 H Calcium 7.7 L 7.9 L Corrected Calcium 8.4 L 8.5 Phosphorus 5.2 H 5.1 Magnesium 1.6 Total Bilirubin 0.5 AST < 8 ALT 14 Alkaline Phosphatase 77 Albumin 3.1 L 3.2 L U Random Total Protein Ur Random Sodium Ur Random Potassium Ur Random Chloride Quality Measures Quality Measures VTE prophylaxis Advance care planning discussed with:: patient Assessment & Plan Assessment Current Active Medications: Generic Name Dose Route Start Last Admin Trade Name Freq PRN Reason Stop Dose Admin Acetaminophen 650 mg 08/06/25 16:52 Acetaminophen 325 Mg Tablet PO 09/05/25 16:51 Q6H PRN Fever >100.3 Acetaminophen 650 mg 08/06/25 16:52 Acetaminophen 325 Mg Tablet PO 09/05/25 16:51 Q6H PRN PAIN SCALE 1-3 (mild Albuterol 2 puff 08/06/25 17:43 Albuterol Inh 8 Gm INH 09/05/25 17:42 Q4HR PRN SHORTNESS OF BREATH OR WHEEZE Albuterol/Ipratropium 3 ml 08/06/25 19:00 08/08/25 06:04 Albuterol/Ipratropium (Duoneb) Rt Latosha 3 Ml Nebu INH 09/05/25 18:59 3 ml Q4HRRT MARK Administration Atorvastatin Calcium 40 mg 08/06/25 21:00 08/07/25 21:27 Atorvastatin Calcium 20 Mg Tablet PO 09/05/25 20:59 40 mg HS MARK Administration Heparin Sodium (Porcine) 5,000 unit 08/06/25 22:00 08/07/25 13:37 Heparin Sod Inj 5000 Unit/Ml Vial SC 08/20/25 21:59 5,000 unit On Hold: 08/07/25 17:03 Q8HR MARK Administration Ceftriaxone Sodium/Dextrose 1 gm in 50 mls @ 100 mls/hr 08/06/25 16:59 08/08/25 10:52 Rocephin/D5w 1gm Iv Premix IV 08/13/25 16:58 Infused QDAY MARK Infusion Azithromycin 500 mg/ Sodium 250 mls @ 250 mls/hr 08/07/25 21:00 08/08/25 10:52 Chloride IV 08/13/25 20:59 Infused QPM MARK Infusion Bumetanide 20 mg/ IV 80 mls @ 8 mls/hr 08/07/25 20:43 08/08/25 06:51 Miscellaneous Supplies IV 08/08/25 16:42 2 mg/hr .Q10H MARK 8 mls/hr 2 MG/HR Administration Ondansetron HCl 4 mg 08/06/25 16:52 Ondansetron Inj 2 Mg/Ml Inj 2 Ml IVP 09/05/25 16:51 Q6H PRN NAUSEA OR VOMITING Protocol Sennosides 1 tab 08/07/25 09:00 08/08/25 05:29 Senna/Docusate Sod 1 Tab Tablet PO 09/06/25 08:59 1 tab QDAY MARK Administration Protocol Zolpidem Tartrate 5 mg 08/07/25 20:10 08/07/25 21:27 Zolpidem 5 Mg Tablet PO 09/06/25 20:09 5 mg HS PRN Administration INSOMNIA Plan Assessment and Plan: Summary: Mr. Mcconnell is a 70-year-old male with past medical history of CKD stage IV established with Dr. Ovalle, CAD status post stent mid LAD follows Dr. Palomo, GI bleed 08/01 - GE junction ulcer/internal hemorrhoids grade IV, diverticulosis, hyperlipidemia, BPH, nephrolithiasis and ?COPD/asthma who presented to [facility] emergency department with a chief complaint of shortness of breath. Patient complains of shortness of breath on activity and while lying flat, limited ADLs and IADLs secondary to dyspnea has worsening bilateral lower extremity swelling for the last several weeks. #Fluid overload status #Acute decompensated heart failure #Diastolic heart failure, HFpEF EF 55 to 60% #CKD stage IV progression to CKD stage V #Membranous nephropathy Patient presented with anasarca, 3+ bilateral lower extremity edema, patient generalized anasarca noted on physical exam. Patient BNP on presentation 518, did complain of mild chest discomfort, troponin negative, EKG shows normal sinus rhythm, heart rate 77 QTc 420 Chest x-ray shows prominent vascular congestion Risks and benefits of Bumex gtt. discussed with patient, patient verbalizes that he would like to avoid dialysis and is okay with a trial of Bumex. Patient was started on Lasix 40 twice daily, was given additional dose today however patient has poor urine output, likely progression of CKD. 08/08 - Patient had around 1.8 L urine output yesterday, did have dialysis catheter placed today. Recommendations: - Continue Bumex drip 2 mg/h - Recommend holding off on hemodialysis for now, follow-up with nephrology. Primary team informed. - Strict intake and output, daily weight, fluid restriction 1500 cc #CAD status post stent mid LAD Cardiac Cath 2021: - [id number] coronary atherosclerosis with 40% stenosis in the mid left anterior descending coronary artery, 99% stenosis of side branch of a tiny caliber vessel stenosis of tiny caliber side branch of the first diagonal branch and patent previously stented mid left anterior descending coronary artery, 20% eccentric stenosis in the proximal right coronary artery, 40% eccentric stenosis in the mid right coronary artery, and minimal aneurysmal dilatation of the mid right coronary artery. - Mid anterior wall, left ventricular hypokinesis with overall good left ventricular systolic function with ejection fraction of 60%. - Normal right femoral arterial angiography. Recommendations: - Patient on Plavix 75 mg daily, recommend continuing - Cardiac restratification with lipid panel A1c and TSH/free T4 #Hypertension Patient on Coreg 12.5 mg p.o. twice daily and hydrochlorothiazide 25 mg p.o. daily as needed edema -Resume Coreg as blood pressure permissible for management of hypertension #Hyperlipidemia Lipid panel 05/16/2025 shows triglycerides 72, cholesterol 132, LDL 71, HDL 47 Patient on atorvastatin 40 mg p.o. every afternoon please resume #Electrolyte abnormalities #Hypernatremia #Hyperchloremia #Hyperphosphatemia - Management as per nephrology Case discussed with Attending Physician Dr. Navdeep Baer MD Internal Medicine PGY-2 Disclaimer: This note was dictated by speech recognition. Minor errors in steel melter may be present due to voice recognition software. Attending Provider Attestation/Addendum I have personally seen and examined the patient separately on the above date of service and discussed the plan of care with the resident. I reviewed the resident Margarita Baer consultation progress note and agree with the resident findings and plan in the note above and have also edited the documentation to reflect my findings and plan. Navdeep Barajas M.D. Interventional Cardiology
[2025-08-08] MEDS: HEPARIN SOD INJ 1000 UNIT/ML VIAL 4100 UNIT INDWELLCAT (11:33)
--- NOTE | 2025-08-08 12:09 | ESPR_ITS ---
<Statement entered by Jordon Ta MD - 08/08/25 15:49> No acute overnight events. Seen and examined at bedside and patient resting comfortably in bed. Does base with nephrology who started patient on dialysis and underwent first dialysis session today and tolerated well. Cardiology started on IV Bumex as patient had good urine output day prior but was discontinued by nephrology as patient was tachycardic. Due to tachycardia, DuoNebs transition to levalbuterol and ipratropium. Remains on IV antibiotics for commune acquired pneumonia. Spoke to psychotherapist social worker regarding outpatient dialysis set up as labs have already been obtained. Will continue to follow with nephrology and cardiology. ----- Note reviewed and agree with care plan as documented. Please refer to the note below for further details. Plan discussed with attending physician Dr. Latasha Ta MD PGY-2 Internal Medicine Documentation for date of: 08/08/25 Subjective Subjective Interval history: No acute overnight events. Patient says he has some lower abdominal pain overnight. Patient mildly tachycardic, bumex was discontinued. Patient is planned to have dialysis catheter placed to day and to get dialysis today as well. Renal labs s/p today's dialysis, will follow up. Exam Vital Signs Temp Pulse Resp BP Pulse Ox O2 Del Method O2 Flow Rate 98.3 F 103 H 20 173/99 H 99 Nasal Cannula 3 08/08/25 10:23 08/08/25 11:43 08/08/25 11:43 08/08/25 11:15 08/08/25 11:43 08/08/25 11:15 08/08/25 11:15 Narrative Exam General: No acute distress, well nourished Eye: PERRL, EOMI, normal conjunctiva, no scleral icterus HENT: Normocephalic, atraumatic, normal hearing, moist oral mucosa Neck: Supple, non-tender, no JVD, no lymphadenopathy Lungs: Mild wheezes bilaterally Heart: Normal S1 and S2, no S3 or S4 appreciated. Normal rate and regular rhythm, no murmurs, rubs gallops. 3+ pitting edema of b/l LE and abdomen Abdomen: Soft, mild lower abdominal tenderness, non-distended, normal bowel sounds. No guarding or rebound tenderness. Musculoskeletal: Normal range of motion and strength, no other tenderness or swelling Skin: Skin is warm, dry, no rashes or lesions. Neurologic: Alert, awake and oriented x3. CN II-XII grossly intact. No focal neuro deficits. No signs of meningeal irritation noted. Psychiatric: Cooperative, appropriate mood and affect Objective Labs 08/09/25 05:11 08/09/25 05:11 Labs: Laboratory Results - last 24 hr 08/07/25 08/07/25 08/07/25 12:31 14:08 17:34 WBC RBC Hgb Hct MCV MCH MCHC RDW Std Deviation Plt Count Neut % (Auto) Lymph % (Auto) [place] % (Auto) Eos % (Auto) Baso % (Auto) Neut # (Auto) Lymph # (Auto) [place] # (Auto) Eos # (Auto) Baso # (Auto) Immature Gran # (Auto) Absolute Nucleated RBC Immature Gran % Nucleated RBC % PT 12.0 INR 1.1 APTT 32.5 Sodium 148 H Potassium 4.6 Chloride 117 H Carbon Dioxide 21.2 Anion Gap 10 BUN 59 H Creatinine 4.6 H* Estim Creat Clear Calc 16.9 L eGFR 13 L* BUN/Creatinine Ratio 13 Glucose 109 H Calculated Osmolality 311 H Calcium 7.8 L Corrected Calcium 8.6 Phosphorus 5.2 H Magnesium Total Bilirubin AST ALT Alkaline Phosphatase Albumin 3.0 L U Random Total Protein 321 H Ur Random Sodium 122.0 H Ur Random Potassium 15 Ur Random Chloride 118.0 08/08/25 08/08/25 00:18 04:48 WBC 8.4 RBC 2.91 L Hgb 9.0 L Hct 27.9 L MCV 96 MCH 30.9 MCHC 32.3 RDW Std Deviation 50.6 H Plt Count 141 Neut % (Auto) 58 Lymph % (Auto) 21 [place] % (Auto) 13 H Eos % (Auto) 7 Baso % (Auto) 1 Neut # (Auto) 4.8 Lymph # (Auto) 1.8 [place] # (Auto) 1.1 H Eos # (Auto) 0.6 H Baso # (Auto) 0.1 Immature Gran # (Auto) 0.03 H Absolute Nucleated RBC 0.00 Immature Gran % 0 Nucleated RBC % 0 PT INR APTT Sodium 147 H 148 H Potassium 4.2 4.0 Chloride 117 H 116 H Carbon Dioxide 18.0 L 19.5 L Anion Gap 12 13 BUN 55 H 58 H Creatinine 5.0 H* 5.0 H* Estim Creat Clear Calc 15.6 L 15.6 L eGFR 12 L* 12 L* BUN/Creatinine Ratio 11 L 12 Glucose 128 H 90 Calculated Osmolality 309 H 310 H Calcium 7.7 L 7.9 L Corrected Calcium 8.4 L 8.5 Phosphorus 5.2 H 5.1 Magnesium 1.6 Total Bilirubin 0.5 AST < 8 ALT 14 Alkaline Phosphatase 77 Albumin 3.1 L 3.2 L U Random Total Protein Ur Random Sodium Ur Random Potassium Ur Random Chloride Quality Measures Quality Measures VTE prophylaxis Advance care planning discussed with:: patient Assessment & Plan Assessment Current Active Medications: Generic Name Dose Route Start Last Admin Trade Name Freq PRN Reason Stop Dose Admin Acetaminophen 650 mg 08/06/25 16:52 Acetaminophen 325 Mg Tablet PO 09/05/25 16:51 Q6H PRN Fever >100.3 Acetaminophen 650 mg 08/06/25 16:52 Acetaminophen 325 Mg Tablet PO 09/05/25 16:51 Q6H PRN PAIN SCALE 1-3 (mild Albuterol 2 puff 08/06/25 17:43 Albuterol Inh 8 Gm INH 09/05/25 17:42 Q4HR PRN SHORTNESS OF BREATH OR WHEEZE Albuterol/Ipratropium 3 ml 08/06/25 19:00 08/08/25 11:40 Albuterol/Ipratropium (Duoneb) Rt Latosha 3 Ml Nebu INH 09/05/25 18:59 3 ml Q4HRRT MICHELLE Administration Atorvastatin Calcium 40 mg 08/06/25 21:00 08/07/25 21:27 Atorvastatin Calcium 20 Mg Tablet PO 09/05/25 20:59 40 mg HS MICHELLE Administration Azithromycin 500 mg 08/09/25 21:00 Azithromycin 250 Mg Tablet PO 08/16/25 20:59 HS MICHELLE Protocol Heparin Sodium (Porcine) 5,000 unit 08/06/25 22:00 08/07/25 13:37 Heparin Sod Inj 5000 Unit/Ml Vial SC 08/20/25 21:59 5,000 unit On Hold: 08/07/25 17:03 Q8HR MICHELLE Administration Ceftriaxone Sodium/Dextrose 1 gm in 50 mls @ 100 mls/hr 08/06/25 16:59 08/08/25 10:52 Rocephin/D5w 1gm Iv Premix IV 08/13/25 16:58 Infused QDAY MICHELLE Infusion Azithromycin 500 mg/ Sodium 250 mls @ 250 mls/hr 08/07/25 21:00 08/08/25 10:52 Chloride IV 08/08/25 23:59 Infused QPM MICHELLE Infusion Bumetanide 20 mg/ IV 80 mls @ 8 mls/hr 08/07/25 20:43 08/08/25 06:51 Miscellaneous Supplies IV 08/08/25 16:42 2 mg/hr .Q10H MICHELLE 8 mls/hr 2 MG/HR Administration Albumin Human 25 gm in 100 mls @ 100 mls/hr 08/08/25 11:44 Albuminex 25% Ivpb IV Q30MIN PRN DIALYSIS Ondansetron HCl 4 mg 08/06/25 16:52 Ondansetron Inj 2 Mg/Ml Inj 2 Ml IVP 09/05/25 16:51 Q6H PRN NAUSEA OR VOMITING Protocol Sennosides 1 tab 08/07/25 09:00 08/08/25 05:29 Senna/Docusate Sod 1 Tab Tablet PO 09/06/25 08:59 1 tab QDAY MICHELLE Administration Protocol Zolpidem Tartrate 5 mg 08/07/25 20:10 08/07/25 21:27 Zolpidem 5 Mg Tablet PO 09/06/25 20:09 5 mg HS PRN Administration INSOMNIA Plan Mr. Mcconnell is a 70 y/o male with PMH CKD stage IV (follows with Vasquez), CAD s/p stenting (follows with Dewey), hyperlipidemia, and hypertension who presented to the ED on 08/06 with exertional dyspnea, b/l LE swelling x several weeks; productive cough and chest pain that does not radiate x 1 week. Admitted for CHF exacerbation, PNA (CAP), and KERWIN. Dialysis catheter placed and HD started 08/08. #Exertional dyspnea #c/f CHF exacerbation #c/f cardiorenal syndrome No documented hx CHF in charts. Pt states he takes a water pill at home Evidence of fluid overload - b/l LE and abdominal pitting edema, exertional dyspnea, tachypnea, chest discomfort BNP 518 Troponin unremarkable, EKG NSR HR 77, QTc 420 CXR: vascular congestion Echo results showed EF 55-60, diastolic indeterminate. Plan: - Discontinued Lasix 40 mg IV BID - Was on Bumex drip today which was discontinued, receiving dialysis today - Strict I+Os - Daily weights - Fluid restriction 1800 mL/day #KERWIN #CKD stage IV #Hypernatremia Follows with Dr. Ovalle On admit: BUN 56, Cr 4.5 (baseline ~3), eGFR 13 (baseline ~mid 20s) Plan: - Consulted Dr. Ovalle, appreciate recs - Dialysis today, s/p dialysis catheter placement 08/08, planned for dialysis tomorrow as well ? Follow-up renal panel #Community acquired pneumonia Afebrile, no leukocytosis. Wet sounding productive cough x 1 week, tachypnea spO2 appropriate on room air Flu and COVID negative CXR: right base pneumonia Plan: - Ceftriaxone 1 g IV daily (08/06-) - Azithromycin 500 mg IV daily () - Duoneb q4h michelle - Albuterol q4h PRN - Pending sputum cx - Blood cx NG24 hrs #Normocytic anemia On admit: hgb 9.2, HCT 29.3, MCV 98 No s/sx active bleed Plan: - CTM with daily CBC #CAD s/p stenting Follows with Dr. Palomo Angiography 2021: normal sized LV, mid anterior wall/LV hypokineses, good overall LV systolic function with LVEF 60%. Mid-moderate coronary atherosclerosis with 40% stenosis in the mid LAD, s/p stenting, 99% stenosis side branch; 20% eccentric stenosis mid RCA with minimal aneurysmal dilatation of mid RCA. Plan: - Atorvastatin 40 mg PO QHS - Plavix 75 mg PO daily (home med) #Hypertension Plan: - Carvedilol 12.5 mg PO BID (home med) - held 2/2 c/f CHF exacerbation #Hyperlipidemia Plan: - Atorvastatin 40 mg PO QHS Checklist Dispo: Tele, New Dialysis 08/08 Lines: PIV Diet: Cardiac Bowel Reg: doc/senna, polyethylene glycol VTE ppx: heparin subQ GI ppx: n/a Pain mgmt: Tylenol 650 mg PO q6h PRN Code status: full Patient plan of care was discussed with the attending physician, Dr. Pagan & senior resident Dr. Cisco Santos MD PGY-1 Attending Provider Attestation/Addendum Imelda Titus, , attest that I was physically present for the isaac portions of the service and evaluated the patient with the resident and I reviewed and discussed the case with the resident and agree with the resident's findings and plans of care as documented above Patient seen and evaluated this afternoon. Daughter at bedside. He underwent tunneled catheter placement this AM and underwent his first session of dialysis. He continues to have 2+ pitting edema of b/l LE. He denies any shortness of breath, but continues to have productive sputum. Bumex drip was started by cardiology. Will continue with HD as per nephro and arrange for outpatient dialysis. He reports having myalgias following dialysis and abdominal pain. However, he states he has not had a BM in a few days. He also reports being very hungry. Will restart diet and order PT as he states that he feels very weak.
--- NOTE | 2025-08-08 12:51 | PC.NURSE ---
PT HR ELEVATED AND TRENDING UP, PT DENIES ALL COMPLAINTS OF CHEST PAIN, PRESSURE, TANG, SOB OR DISCOMFORT AND REMAINS ASYMPTOMATIC, UF GOAL LOWERED TO 1.5L TOLERATED WILL CONT. TO MONITOR
[2025-08-08 13:17] LABS: Iron 75 mcg/dL (65-175); Percent Iron Saturation 40 % (20-55); Total Iron Binding Capacity 186 mcg/dL (250-425); Unsaturated Iron Binding 111 (225-295)
[2025-08-08 13:19] LABS: Albumin/Globulin Ratio 1.1 (1.2-2.2); Globulin 2.8 gm/dL (2.3-3.5); Total Protein 6.0 gm/dL (5.7-8.2)
--- NOTE | 2025-08-08 13:47 | ESPR_ITS ---
RE: GENESIS KAUR : 1955 DATE OF SERVICE: 08/08/2025 HISTORY OF PRESENT ILLNESS: Briefly, this patient is a 70-year-old gentleman with hypertension, coronary artery disease, status post coronary artery stent placement, stage IV CKD, and biopsy proven membranous glomerulonephritis whose kidney function has declined progressively in the past few years, now reaching ESRD. Patient is waiting for dialysis catheter to be placed today and is doing a little bit worse today given that he is more fluid overloaded since last night even though he had a good urine output. He said that he is feeling more short of breath today. CURRENT MEDICATIONS: 1. Bumex 2 mg per hour. 2. Acetaminophen. 3. Albuterol inhaler. 4. Azithromycin 500 mg IV daily. 5. Rocephin 1 g IV daily. 6. Ondansetron. 7. Zolpidem 5 mg at bedtime. 8. Docusate sodium 1 tablet p.o. daily p.r.n. PHYSICAL EXAMINATION: GENERAL: He is awake, alert, oriented, in mild respiratory distress. VITAL SIGNS: Blood pressure of 155/91, heart rate of 107. HEENT: Anicteric sclerae, normocephalic. NECK: Supple. JVD. CHEST AND LUNGS: Decreased breath sounds bilaterally with diffuse crackles. CARDIAC: No rubs, no murmurs. ABDOMEN: Soft, distended. EXTREMITIES: 2+ pitting edema. LABORATORY DATA: Hemoglobin 9, WBC 8400, platelet count 141,000. Sodium 148, potassium 4, chloride 116, CO2 19.5, BUN 58, creatinine 5, glucose 90, phosphorus 5.1, calcium 8.5. ASSESSMENT: 1. Stage V chronic kidney disease secondary to hypertension and h/o membranous glomerulonephritis. 2. Volume overload secondary to stage V chronic kidney disease. 3. Significant right base pneumonia. 4. Anemia of chronic disease. 5. History of coronary artery disease status post coronary artery stent placement. 6. Hypernatremia. 7. Proteinuria secondary to history of membranous nephropathy. PLAN: Patient will start dialysis today as soon as we have a tunneled dialysis catheter in place. Next dialysis will be tomorrow. I will continue his Retacrit 10,000 units subcutaneously 2 times a week. We are waiting for dialysis center placement. DT: 13:25:56 TT: 13:46:00 Ref: [id number] - TID: [id number] MTDD
[2025-08-08] MEDS: HEPARIN SOD INJ 1000 UNIT/ML VIAL 10 ML 4100 UNIT INDWELLCAT (14:43)
[2025-08-08 14:51] LABS: Hepatitis A Antibody IgM Non Reactive (Non React); Hepatitis B Core Antibody IgM Non Reactive (Non React); Hepatitis B Surface Antigen Non Reactive (Non React); Hepatitis C Antibody Non Reactive (Non React)
[2025-08-08 18:35] LABS: Anion Gap 14 (7-16); BUN/Creatinine Ratio 10 Ratio (12-20); Blood Urea Nitrogen 37 mg/dL (9-23); Calcium 8.3 mg/dL (8.3-10.6); Carbon Dioxide 22.5 mMol/L (20.0-31.0); Chloride 110 mMol/L (98-107); Creatinine (Component) 3.8 mg/dL (0.6-1.3); Estimated Creatinine Clearance 20.5 mL/min (>60); Glucose 88 mg/dL (74-106); Osmolality,Calculated 298 (275-295); Potassium 3.8 mMol/L (3.4-5.1); Sodium 146 mMol/L (136-145); eGFR 16 See Note
[2025-08-08] MEDS: LEVALBUTEROL RT 1.25 MG/0.5 ML NEBU INH (18:57)
[2025-08-08] MEDS: IPRATROPIUM RT 0.5 MG/ 2.5 ML NEBU INH (18:57)
[2025-08-08] MEDS: AZITHROMYCIN INJ 500 MG in SODIUM CHLORIDE 0.9% 250 ML 250 ML 250 MG IV (20:33)
[2025-08-08] MEDS: ATORVASTATIN CALCIUM 20 MG TABLET 40 MG PO (20:35)
[2025-08-08] MEDS: MELATONIN 3 MG TABLET 6 MG PO (22:16)
[2025-08-09] VITALS (27 sets, daily range): BP systolic 106–151; BP diastolic 69–106; PULSE 72–110; RESP 16–97; TEMP 36.4–36.9; O2SAT 91–99; BMI 34.5
[2025-08-09] MEDS: IPRATROPIUM RT 0.5 MG/ 2.5 ML NEBU INH ×4 (00:48→20:03)
[2025-08-09] MEDS: LEVALBUTEROL RT 1.25 MG/0.5 ML NEBU INH ×4 (00:48→20:04)
[2025-08-09] MEDS: BUMETANIDE INJ 20 MG in CONTAINER,EMPTY 50 ML 1 BAG 8 MG IV ×2 (03:08→18:23)
--- NOTE | 2025-08-09 04:18 | PC.NURSE ---
[employer] downtime occurred on <08/09/25> from <0200> to <0350>.
[2025-08-09] MEDS: HEPARIN SOD INJ 5000 UNIT/ML VIAL SC ×3 (05:14→22:39)
[2025-08-09 05:57] LABS: Basophils # (Auto) 0.1 Thou/mm3 (0.0-0.2); Basophils % (Auto) 1 % (0-2.5); Eosinophils # (Auto) 0.4 Thou/mm3 (0.0-0.5); Eosinophils % (Auto) 5 % (0-10); Hematocrit 28.3 % (41.0-53.0); Hemoglobin 9.4 g/dL (13.5-16.0); Immature Granulocytes Auto 0.03 Thou/mm3 (0.00-0.00); Lymphocytes # (Auto) 1.5 Thou/mm3 (1.0-4.8); Lymphocytes % (Auto) 20 % (10-50); Mean Corpuscular HGB Conc 33.2 g/dl (31.0-37.0); Mean Corpuscular Hemoglobin 31.5 pg (25.0-35.0); Mean Corpuscular Volume 95 fL (80-100); Monocytes # (Auto) 1.3 Thou/mm3 (0.0-0.8); Monocytes % (Auto) 17 % (0-12); Neutrophils # (Auto) 4.5 Thou/mm3 (1.8-7.7); Neutrophils % (Auto) 58 % (37-80); Nucleated Red Blood Cell # 0.00 Thou/mm3 (0.00-0.00); Nucleated Red Blood Cell % 0 /100 WBC (0); Platelet Count 124 Thou/mm3 (140-440); RDW Standard Deviation 50.3 fL (35.1-43.9); Red Blood Count 2.98 Miln/mm3 (4.50-5.90); White Blood Count 7.8 Thou/mm3 (3.8-10.6)
[2025-08-09] MEDS: SODIUM CHLORIDE RT SOL 0.9% 3 ML NEBU INH ×2 (06:18→13:37)
[2025-08-09 06:42] LABS: Alanine Aminotransferase 17 U/L (10-49); Albumin, Serum 3.5 gm/dL (3.4-4.8); Albumin/Globulin Ratio 1.3 (1.2-2.2); Alkaline Phosphatase 77 U/L (46-116); Anion Gap 13 (7-16); Aspartate Amino Transferase 25 U/L (0-34); BUN/Creatinine Ratio 9 Ratio (12-20); Bilirubin,Total 0.6 mg/dL (0.3-1.2); Blood Urea Nitrogen 37 mg/dL (9-23); Calcium 8.0 mg/dL (8.3-10.6); Calcium (Corrected) 8.4 mg/dL (8.5-10.1); Carbon Dioxide 23.2 mMol/L (20.0-31.0); Chloride 110 mMol/L (98-107); Creatinine (Component) 4.2 mg/dL (0.6-1.3); Estimated Creatinine Clearance 18.5 mL/min (>60); Globulin 2.7 gm/dL (2.3-3.5); Glucose 90 mg/dL (74-106); Osmolality,Calculated 299 (275-295); Phosphorous 4.0 mg/dL (2.4-5.1); Potassium 4.1 mMol/L (3.4-5.1); Sodium 146 mMol/L (136-145); Total Protein 6.2 gm/dL (5.7-8.2); eGFR 14 See Note
[2025-08-09] MEDS: POLYETHYLENE GLYCOL 17 GM PACKET PO (08:20)
[2025-08-09] MEDS: cefTRIAXone/D5w 1gm IV premix 1 GM/50 ML BAG IV (08:20)
--- NOTE | 2025-08-09 08:39 | PD.RESPRO ---
Documentation for date of: 08/09/25 Subjective Subjective Interval history: Patient seen and examined at bedside. Patient had hemodialysis catheter placed yesterday, received hemodialysis had about 2 L fluid removed. Despite hemodialysis Bumex drip was continued and patient had about 1 L urine output in the last 24 hours We recommend to continue Bumex drip and assess response. Nephrology is following. Exam Vital Signs Temp Pulse Resp BP Pulse Ox O2 Del Method O2 Flow Rate 97.9 F 110 H 20 124/83 95 Room Air 3 08/09/25 04:00 08/09/25 06:19 08/09/25 06:19 08/09/25 04:00 08/09/25 06:19 08/09/25 04:00 08/08/25 11:15 Narrative Exam General: No acute distress, well nourished Eye: PERRL, EOMI, normal conjunctiva, no scleral icterus HENT: Normocephalic, atraumatic, normal hearing, moist oral mucosa Neck: Supple, non-tender, no JVD, no lymphadenopathy Lungs: Normal breath sounds, no wheezing Heart: Normal S1 and S2, no S3 or S4 appreciated. Normal rate and regular rhythm, no murmurs, rubs gallops. 2+ pitting edema bilateral lower extremities, improving Abdomen: Soft, mild lower abdominal tenderness, non-distended, normal bowel sounds. No guarding or rebound tenderness. Musculoskeletal: Normal range of motion and strength, no other tenderness or swelling Skin: Skin is warm, dry, no rashes or lesions. Neurologic: Alert, awake and oriented x3. CN II-XII grossly intact. No focal neuro deficits. Psychiatric: Cooperative, appropriate mood and affect Objective Labs 08/10/25 04:50 08/10/25 04:50 Labs: Laboratory Results - last 24 hr 08/07/25 08/08/25 08/08/25 17:34 04:48 17:24 WBC RBC Hgb Hct MCV MCH MCHC RDW Std Deviation Plt Count Neut % (Auto) Lymph % (Auto) Evans % (Auto) Eos % (Auto) Baso % (Auto) Neut # (Auto) Lymph # (Auto) Evans # (Auto) Eos # (Auto) Baso # (Auto) Immature Gran # (Auto) Absolute Nucleated RBC Immature Gran % Nucleated RBC % Sodium 146 H Potassium 3.8 Chloride 110 H Carbon Dioxide 22.5 Anion Gap 14 BUN 37 H Creatinine 3.8 H D Estim Creat Clear Calc 20.5 L eGFR 16 L BUN/Creatinine Ratio 10 L Glucose 88 Calculated Osmolality 298 H Calcium 8.3 Corrected Calcium Phosphorus Iron 75 TIBC 186 L Iron Saturation 40 Unsat Iron Binding 111 L Total Bilirubin AST ALT Alkaline Phosphatase Total Protein 6.0 Albumin Globulin 2.8 Albumin/Globulin Ratio 1.1 L Hepatitis A IgM Ab Non Reactive Hep Bs Antigen Non Reactive Hep B Core IgM Ab Non Reactive Hepatitis C Antibody Non Reactive 08/09/25 05:11 WBC 7.8 RBC 2.98 L Hgb 9.4 L Hct 28.3 L MCV 95 MCH 31.5 MCHC 33.2 RDW Std Deviation 50.3 H Plt Count 124 L Neut % (Auto) 58 Lymph % (Auto) 20 Evans % (Auto) 17 H Eos % (Auto) 5 Baso % (Auto) 1 Neut # (Auto) 4.5 Lymph # (Auto) 1.5 Evans # (Auto) 1.3 H Eos # (Auto) 0.4 Baso # (Auto) 0.1 Immature Gran # (Auto) 0.03 H Absolute Nucleated RBC 0.00 Immature Gran % 0 Nucleated RBC % 0 Sodium 146 H Potassium 4.1 Chloride 110 H Carbon Dioxide 23.2 Anion Gap 13 BUN 37 H Creatinine 4.2 H* Estim Creat Clear Calc 18.5 L eGFR 14 L* BUN/Creatinine Ratio 9 L Glucose 90 Calculated Osmolality 299 H Calcium 8.0 L Corrected Calcium 8.4 L Phosphorus 4.0 Iron TIBC Iron Saturation Unsat Iron Binding Total Bilirubin 0.6 AST 25 ALT 17 Alkaline Phosphatase 77 Total Protein 6.2 Albumin 3.5 Globulin 2.7 Albumin/Globulin Ratio 1.3 Hepatitis A IgM Ab Hep Bs Antigen Hep B Core IgM Ab Hepatitis C Antibody Quality Measures Quality Measures VTE prophylaxis Advance care planning discussed with:: patient Assessment & Plan Assessment Current Active Medications: Generic Name Dose Route Start Last Admin Trade Name Freq PRN Reason Stop Dose Admin Acetaminophen 650 mg 08/06/25 16:52 Acetaminophen 325 Mg Tablet PO 09/05/25 16:51 Q6H PRN Fever >100.3 Acetaminophen 650 mg 08/06/25 16:52 Acetaminophen 325 Mg Tablet PO 09/05/25 16:51 Q6H PRN PAIN SCALE 1-3 (mild Atorvastatin Calcium 40 mg 08/06/25 21:00 08/08/25 20:35 Atorvastatin Calcium 20 Mg Tablet PO 09/05/25 20:59 40 mg HS MARK Administration Azithromycin 500 mg 08/09/25 21:00 Azithromycin 250 Mg Tablet PO 08/16/25 20:59 HS MARK Protocol Guaifenesin 600 mg 08/09/25 09:00 Guaifenesin Er 600 Mg Tabcr PO 09/08/25 08:59 BID MARK Heparin Sodium (Porcine) 5,000 unit 08/06/25 22:00 08/09/25 05:14 Heparin Sod Inj 5000 Unit/Ml Vial SC 08/20/25 21:59 5,000 unit Q8HR MARK Administration Heparin Sodium (Porcine) 4,100 unit 08/08/25 14:14 08/08/25 14:43 Heparin Sod Inj 1000 Unit/Ml Vial 10 Ml INDWELLCAT 08/22/25 14:13 4,100 unit PRN PRN Administration DIALYSIS Ceftriaxone Sodium/Dextrose 1 gm in 50 mls @ 100 mls/hr 08/06/25 16:59 08/09/25 08:20 Rocephin/D5w 1gm Iv Premix IV 08/13/25 16:58 100 mls/hr QDAY MARK Administration Albumin Human 25 gm in 100 mls @ 100 mls/hr 08/08/25 11:44 Albuminex 25% Ivpb IV Q30MIN PRN DIALYSIS Bumetanide 20 mg/ IV 80 mls @ 8 mls/hr 08/08/25 15:16 08/09/25 03:08 Miscellaneous Supplies IV 08/09/25 11:15 2 mg/hr .Q10H MARK 8 mls/hr 2 MG/HR Administration Bumetanide 20 mg/ IV 80 mls @ 8 mls/hr 08/09/25 12:00 Miscellaneous Supplies IV 08/10/25 07:59 .Q10H MARK 2 MG/HR Ipratropium [place] 0.5 mg 08/08/25 19:00 08/09/25 06:13 Ipratropium Rt 0.5 Mg/ 2.5 Ml Nebu INH 09/07/25 18:59 0.5 mg Q6HRRT MARK Administration Levalbuterol HCl 1.25 mg 08/08/25 19:00 08/09/25 06:13 Levalbuterol Rt 1.25 Mg/0.5 Ml Nebu INH 09/07/25 18:59 1.25 mg Q6HRRT MARK Administration Levalbuterol HCl 1.25 mg 08/08/25 15:46 Levalbuterol Rt 1.25 Mg/0.5 Ml Nebu INH 09/07/25 15:45 Q4HR PRN WHEEZING Ondansetron HCl 4 mg 08/06/25 16:52 Ondansetron Inj 2 Mg/Ml Inj 2 Ml IVP 09/05/25 16:51 Q6H PRN NAUSEA OR VOMITING Protocol Polyethylene Glycol 17 gm 08/08/25 16:00 08/09/25 08:20 Polyethylene Glycol 17 Gm Packet PO 09/07/25 15:59 17 gm QDAY MARK Administration Sennosides 1 tab 08/07/25 09:00 08/09/25 08:23 Senna/Docusate Sod 1 Tab Tablet PO 09/06/25 08:59 Not Given QDAY MARK Protocol Sodium Chloride 3 ml 08/08/25 15:46 08/09/25 06:18 Sodium Chloride Rt Latosha 0.9% 3 Ml Nebu INH 09/07/25 15:45 3 ml PRN PRN Administration SOLN Zolpidem Tartrate 5 mg 08/07/25 20:10 08/07/25 21:27 Zolpidem 5 Mg Tablet PO 09/06/25 20:09 5 mg HS PRN Administration INSOMNIA Plan Assessment and Plan: Summary: Mr. Mcconnell is a 70-year-old male with past medical history of CKD stage IV established with Dr. Ovalle, CAD status post stent mid LAD follows Dr. Palomo, GI bleed 08/01 - GE junction ulcer/internal hemorrhoids grade IV, diverticulosis, hyperlipidemia, BPH, nephrolithiasis and ?COPD/asthma who presented to [facility] emergency department with a chief complaint of shortness of breath. Patient complains of shortness of breath on activity and while lying flat, limited ADLs and IADLs secondary to dyspnea has worsening bilateral lower extremity swelling for the last several weeks. #Fluid overload status #Acute decompensated heart failure #Diastolic heart failure, HFpEF EF 55 to 60% #CKD stage IV progression to CKD stage V #Membranous nephropathy #New onset hemodialysis, 08/08 Patient presented with anasarca, 3+ bilateral lower extremity edema, patient generalized anasarca noted on physical exam. Patient BNP on presentation 518, did complain of mild chest discomfort, troponin negative, EKG shows normal sinus rhythm, heart rate 77 QTc 420 Chest x-ray shows prominent vascular congestion Risks and benefits of Bumex gtt. discussed with patient, patient verbalizes that he would like to avoid dialysis and is okay with a trial of Bumex. Patient was started on Lasix 40 twice daily, was given additional dose today however patient has poor urine output, likely progression of CKD. 08/08 - Patient had around 1.8 L urine output yesterday, did have dialysis catheter placed today. 08/09 - Patient had 1 L urine output despite receiving hemodialysis with 2 L fluid removal, will continue Bumex drip Recommendations: - Continue Bumex drip 2 mg/h and monitor if patient can continues to diurese> Can change to bolus dosing tomorrow - Nephrology following and Dialysis planned. - Strict intake and output, daily weight, fluid restriction 1500 cc #CAD status post stent mid LAD Cardiac Cath 2021: - [id number] coronary atherosclerosis with 40% stenosis in the mid left anterior descending coronary artery, 99% stenosis of side branch of a tiny caliber vessel stenosis of tiny caliber side branch of the first diagonal branch and patent previously stented mid left anterior descending coronary artery, 20% eccentric stenosis in the proximal right coronary artery, 40% eccentric stenosis in the mid right coronary artery, and minimal aneurysmal dilatation of the mid right coronary artery. - Mid anterior wall, left ventricular hypokinesis with overall good left ventricular systolic function with ejection fraction of 60%. - Normal right femoral arterial angiography. Lipid panel 05/16/2025 shows triglycerides 72, cholesterol 132, LDL 71, HDL 47, hemoglobin A1c 08/06/2025 5.2, TSH 05/16/2025 4.01 Recommendations: - Continue Plavix 75 mg daily #Hypertension Patient on Coreg 12.5 mg p.o. twice daily and hydrochlorothiazide 25 mg p.o. daily as needed edema -Resume Coreg as blood pressure permissible for management of hypertension #Hyperlipidemia Lipid panel 05/16/2025 shows triglycerides 72, cholesterol 132, LDL 71, HDL 47 Continue atorvastatin 40 mg at bedtime #Electrolyte abnormalities #Hypernatremia #Hyperchloremia #Hyperphosphatemia - Management as per nephrology Case discussed with Attending Physician Dr. Navdeep Baer MD Internal Medicine PGY-2 Disclaimer: This note was dictated by speech recognition. Minor errors in binder sorter may be present due to voice recognition software. Attending Provider Attestation/Addendum I have personally seen and examined the patient separately on the above date of service and discussed the plan of care with the resident. I reviewed the resident Dr. Margarita Baer consultation progress note and agree with the resident findings and plan in the note above and have also edited the documentation to reflect my findings and plan. Navdeep Barajas M.D. Interventional Cardiology
[2025-08-09] MEDS: HEPARIN SOD INJ 1000 UNIT/ML VIAL 10 ML 4100 UNIT INDWELLCAT (11:23)
--- NOTE | 2025-08-09 12:08 | ESPR_ITS ---
<Statement entered by Jordon Ta MD - 08/09/25 14:00> No acute overnight events. Seen and examined at bedside prior to going to dialysis and states that he has no shortness of breath or chest pain. Continues to have bilateral lower extremity edema and lungs without any crackles or wheezing. Plan to go under the round of hemodialysis today and nephrology made aware of Bumex drip. Otherwise we will continue treating for community-acquired pneumonia, Plavix restarted. Pending outpatient dialysis chair and once obtain will be stable for discharge. ----- Note reviewed and agree with care plan as documented. Please refer to the note below for further details. Plan discussed with attending physician Dr. Latasha Ta MD PGY-2 Internal Medicine Documentation for date of: 08/09/25 Subjective Subjective Interval history: No acute events overnight. Patients BP 140s/90s before dialysis in the morning. Yesterday patient had 1.5 liters fluid taken off during dialysis along with 1 L urine output. Continuing the bumex, patient is not tachycardic today compared to yesterday. Pending outpatient dialysis chair for discharge. Exam Vital Signs Temp Pulse Resp BP Pulse Ox O2 Del Method O2 Flow Rate 97.7 F 99 20 132/86 H 91 L Room Air 3 08/09/25 09:21 08/09/25 12:00 08/09/25 09:21 08/09/25 12:00 08/09/25 09:21 08/09/25 08:00 08/08/25 11:15 Narrative Exam General: No acute distress, well nourished Eye: PERRL, EOMI, normal conjunctiva, no scleral icterus HENT: Normocephalic, atraumatic, normal hearing, moist oral mucosa Neck: Supple, non-tender, no JVD, no lymphadenopathy Lungs: Mild wheezes bilaterally Heart: Normal S1 and S2, no S3 or S4 appreciated. Normal rate and regular rhythm, no murmurs, rubs gallops. 2/3+ pitting edema of b/l LE and abdomen Abdomen: Soft, mild lower abdominal tenderness, non-distended, normal bowel sounds. No guarding or rebound tenderness. Musculoskeletal: Normal range of motion and strength, no other tenderness or swelling Skin: Skin is warm, dry, no rashes or lesions. Neurologic: Alert, awake and oriented x3. CN II-XII grossly intact. No focal neuro deficits. Psychiatric: Cooperative, appropriate mood and affect Objective Labs 08/10/25 04:50 08/10/25 04:50 Labs: Laboratory Results - last 24 hr 08/07/25 08/08/25 08/08/25 17:34 04:48 17:24 WBC RBC Hgb Hct MCV MCH MCHC RDW Std Deviation Plt Count Neut % (Auto) Lymph % (Auto) [place] % (Auto) Eos % (Auto) Baso % (Auto) Neut # (Auto) Lymph # (Auto) [place] # (Auto) Eos # (Auto) Baso # (Auto) Immature Gran # (Auto) Absolute Nucleated RBC Immature Gran % Nucleated RBC % Sodium 146 H Potassium 3.8 Chloride 110 H Carbon Dioxide 22.5 Anion Gap 14 BUN 37 H Creatinine 3.8 H D Estim Creat Clear Calc 20.5 L eGFR 16 L BUN/Creatinine Ratio 10 L Glucose 88 Calculated Osmolality 298 H Calcium 8.3 Corrected Calcium Phosphorus Iron 75 TIBC 186 L Iron Saturation 40 Unsat Iron Binding 111 L Total Bilirubin AST ALT Alkaline Phosphatase Total Protein 6.0 Albumin Globulin 2.8 Albumin/Globulin Ratio 1.1 L Hepatitis A IgM Ab Non Reactive Hep Bs Antigen Non Reactive Hep B Core IgM Ab Non Reactive Hepatitis C Antibody Non Reactive 08/09/25 05:11 WBC 7.8 RBC 2.98 L Hgb 9.4 L Hct 28.3 L MCV 95 MCH 31.5 MCHC 33.2 RDW Std Deviation 50.3 H Plt Count 124 L Neut % (Auto) 58 Lymph % (Auto) 20 [place] % (Auto) 17 H Eos % (Auto) 5 Baso % (Auto) 1 Neut # (Auto) 4.5 Lymph # (Auto) 1.5 [place] # (Auto) 1.3 H Eos # (Auto) 0.4 Baso # (Auto) 0.1 Immature Gran # (Auto) 0.03 H Absolute Nucleated RBC 0.00 Immature Gran % 0 Nucleated RBC % 0 Sodium 146 H Potassium 4.1 Chloride 110 H Carbon Dioxide 23.2 Anion Gap 13 BUN 37 H Creatinine 4.2 H* Estim Creat Clear Calc 18.5 L eGFR 14 L* BUN/Creatinine Ratio 9 L Glucose 90 Calculated Osmolality 299 H Calcium 8.0 L Corrected Calcium 8.4 L Phosphorus 4.0 Iron TIBC Iron Saturation Unsat Iron Binding Total Bilirubin 0.6 AST 25 ALT 17 Alkaline Phosphatase 77 Total Protein 6.2 Albumin 3.5 Globulin 2.7 Albumin/Globulin Ratio 1.3 Hepatitis A IgM Ab Hep Bs Antigen Hep B Core IgM Ab Hepatitis C Antibody Quality Measures Quality Measures VTE prophylaxis Advance care planning discussed with:: patient Assessment & Plan Assessment Current Active Medications: Generic Name Dose Route Start Last Admin Trade Name Freq PRN Reason Stop Dose Admin Acetaminophen 650 mg 08/06/25 16:52 Acetaminophen 325 Mg Tablet PO 09/05/25 16:51 Q6H PRN Fever >100.3 Acetaminophen 650 mg 08/06/25 16:52 Acetaminophen 325 Mg Tablet PO 09/05/25 16:51 Q6H PRN PAIN SCALE 1-3 (mild Atorvastatin Calcium 40 mg 08/06/25 21:00 08/08/25 20:35 Atorvastatin Calcium 20 Mg Tablet PO 09/05/25 20:59 40 mg HS MICHELLE Administration Azithromycin 500 mg 08/09/25 21:00 Azithromycin 250 Mg Tablet PO 08/16/25 20:59 HS MICHELLE Protocol Clopidogrel Bisulfate 75 mg 08/09/25 12:00 Clopidogrel Bisulfate 75 Mg Tablet PO 09/08/25 11:59 QDAY MICHELLE Guaifenesin 600 mg 08/09/25 09:00 Guaifenesin Er 600 Mg Tabcr PO 09/08/25 08:59 BID MICHELLE Heparin Sodium (Porcine) 5,000 unit 08/06/25 22:00 08/09/25 05:14 Heparin Sod Inj 5000 Unit/Ml Vial SC 08/20/25 21:59 5,000 unit Q8HR MICHELLE Administration Heparin Sodium (Porcine) 4,100 unit 08/08/25 14:14 08/09/25 11:23 Heparin Sod Inj 1000 Unit/Ml Vial 10 Ml INDWELLCAT 08/22/25 14:13 4,100 unit PRN PRN Administration DIALYSIS Ceftriaxone Sodium/Dextrose 1 gm in 50 mls @ 100 mls/hr 08/06/25 16:59 08/09/25 08:20 Rocephin/D5w 1gm Iv Premix IV 08/13/25 16:58 100 mls/hr QDAY MICHELLE Administration Albumin Human 25 gm in 100 mls @ 100 mls/hr 08/08/25 11:44 Albuminex 25% Ivpb IV Q30MIN PRN DIALYSIS Bumetanide 20 mg/ IV 80 mls @ 8 mls/hr 08/09/25 12:00 Miscellaneous Supplies IV 08/10/25 07:59 .Q10H MICHELLE 2 MG/HR Ipratropium [place] 0.5 mg 08/08/25 19:00 08/09/25 06:13 Ipratropium Rt 0.5 Mg/ 2.5 Ml Nebu INH 09/07/25 18:59 0.5 mg Q6HRRT MICHELLE Administration Lactulose 10 gm 08/09/25 12:00 Lactulose Syrup 20 Gm/30 Ml Udc PO 09/08/25 11:59 BID MICHELLE Protocol Levalbuterol HCl 1.25 mg 08/08/25 19:00 08/09/25 06:13 Levalbuterol Rt 1.25 Mg/0.5 Ml Nebu INH 09/07/25 18:59 1.25 mg Q6HRRT MICHELLE Administration Levalbuterol HCl 1.25 mg 08/08/25 15:46 Levalbuterol Rt 1.25 Mg/0.5 Ml Nebu INH 09/07/25 15:45 Q4HR PRN WHEEZING Ondansetron HCl 4 mg 08/06/25 16:52 Ondansetron Inj 2 Mg/Ml Inj 2 Ml IVP 09/05/25 16:51 Q6H PRN NAUSEA OR VOMITING Protocol Polyethylene Glycol 17 gm 08/08/25 16:00 08/09/25 08:20 Polyethylene Glycol 17 Gm Packet PO 09/07/25 15:59 17 gm QDAY MICHELLE Administration Sennosides 1 tab 08/07/25 09:00 08/09/25 08:23 Senna/Docusate Sod 1 Tab Tablet PO 09/06/25 08:59 Not Given QDAY MICHELLE Protocol Sodium Chloride 3 ml 08/08/25 15:46 08/09/25 06:18 Sodium Chloride Rt Latosha 0.9% 3 Ml Nebu INH 09/07/25 15:45 3 ml PRN PRN Administration SOLN Zolpidem Tartrate 5 mg 08/07/25 20:10 08/07/25 21:27 Zolpidem 5 Mg Tablet PO 09/06/25 20:09 5 mg HS PRN Administration INSOMNIA Plan Mr. Mcconnell is a 70 y/o male with PMH CKD stage V (follows with Vasquez), CAD s/p stenting (follows with Dewey), hyperlipidemia, and hypertension who presented to the ED on 08/06 with exertional dyspnea, b/l LE swelling x several weeks; productive cough and chest pain that does not radiate x 1 week. Admitted for CHF exacerbation, PNA (CAP), and KERWIN. Dialysis catheter placed and HD completed 08/08 & 08/09, pending outpatient dialysis chair before discharging patient. #Exertional dyspnea #c/f CHF exacerbation #c/f cardiorenal syndrome No documented hx CHF in charts. Pt states he takes a water pill at home Evidence of fluid overload - b/l LE and abdominal pitting edema, exertional dyspnea, tachypnea, chest discomfort BNP 518 Troponin unremarkable, EKG NSR HR 77, QTc 420 CXR: vascular congestion Echo results showed EF 55-60, diastolic indeterminate. Making urine with bumex Plan: - Continuing Bumex drip, receiving dialysis - Strict I+Os - Daily weights - Fluid restriction 1800 mL/day #KERWIN #CKD stage V #Hypernatremia Due to hypertension, h/o membranous glomerulonephritis Follows with Dr. Ovalle On admit: BUN 56, Cr 4.5 (baseline ~3), eGFR 13 (baseline ~mid 20s) S/p dialysis catheter placement 08/08 Plan: - Consulted Dr. Ovalle, appreciate recs - Dialysis completed 08/08 & 08/09 - pending outpatient dialysis chair before discharging patient. ? Follow-up renal panel #Community acquired pneumonia Afebrile, no leukocytosis. Wet sounding productive cough x 1 week, tachypnea spO2 appropriate on room air Flu and COVID negative CXR: right base pneumonia Plan: - Ceftriaxone 1 g IV daily (08/06-) - Azithromycin 500 mg IV daily (08/06-) - Duoneb q4h michelle - Albuterol q4h PRN - Added guaifenesin 600 mg po bid - Pending sputum cx - Blood cx no growth so far #Normocytic anemia On admit: hgb 9.2, HCT 29.3, MCV 98 No s/sx active bleed Plan: - CTM with daily CBC #CAD s/p stenting Follows with Dr. Palomo Angiography 2021: normal sized LV, mid anterior wall/LV hypokineses, good overall LV systolic function with LVEF 60%. Mid-moderate coronary atherosclerosis with 40% stenosis in the mid LAD, s/p stenting, 99% stenosis side branch; 20% eccentric stenosis mid RCA with minimal aneurysmal dilatation of mid RCA. Plan: - Atorvastatin 40 mg PO QHS - Plavix 75 mg PO daily (home med) #Hypertension Plan: - Carvedilol 12.5 mg PO BID (home med) - held 10/09 c/f CHF exacerbation #Hyperlipidemia Plan: - Atorvastatin 40 mg PO QHS Checklist Dispo: Tele, New Hemodialysis 08/08, pending outpatient dialysis chair Lines: PIV Diet: Cardiac Bowel Reg: doc/senna/miralax VTE ppx: heparin subQ GI ppx: n/a Pain mgmt: Tylenol 650 mg PO q6h PRN Code status: full Patient plan of care was discussed with the attending physician, Dr. Pagan & senior resident Dr. Cisco Santos MD PGY-1 Attending Provider Attestation/Addendum I, Imelda Pagan, , attest that I was physically present for the isaac portions of the service and evaluated the patient with the resident and I reviewed and discussed the case with the resident and agree with the resident's findings and plans of care as documented above Patient seen and evaluated this AM during dialysis. He states that he is feeling better today. He reports improvement of abdominal pain and mild productive sputum. Will give mucinex. Patient is to have another dialysis session tomorrow. Anticipate DC within next 24h if chair time is arranged.
[2025-08-09] MEDS: CLOPIDOGREL BISULFATE 75 MG TABLET PO (12:59)
[2025-08-09] MEDS: LACTULOSE SYRUP 20 GM/30 ML UDC 10 GM PO (12:59)
[2025-08-09 14:07] LABS: Magnesium 1.6 mg/dL (1.6-2.6)
--- NOTE | 2025-08-09 15:36 | PC.SS ---
HVAC R INSTRUCTOR confirmed with bedside nurse that patient's TB test reading is pending. In addition patient has only received 2 sessions of dialysis.
--- NOTE | 2025-08-09 16:44 | PC.PT ---
PT eval only. Patient is xI with bed mobility, transfers, and ambulation. Patient is safe to ambulate to the bathroom and in the halls with 1 staff assist per patient request. RN made aware.
[2025-08-09] MEDS: ATORVASTATIN CALCIUM 20 MG TABLET 40 MG PO (20:20)
[2025-08-09] MEDS: ZOLPIDEM 5 MG TABLET PO (20:20)
[2025-08-09] MEDS: AZITHROMYCIN 250 MG TABLET 500 MG PO (20:20)
--- NOTE | 2025-08-09 21:58 | ESPR_ITS ---
RE: GENESIS KAUR : 1955 DATE OF SERVICE: 08/09/2025 HISTORY OF PRESENT ILLNESS: Briefly, he is a 70-year-old gentleman with hypertension, coronary artery disease, status post coronary artery stent placement, stage V CKD, now ESRD, and biopsy-proven membranous glomerulonephritis, whose kidney function has declined progressively in the past few years and now reaching ESRD. Patient had his first dialysis yesterday and is waiting for dialysis today. He said that he is feeling a little bit weak today too. CURRENT MEDICATIONS: 1. Acetaminophen. 2. Atorvastatin 40 mg at bedtime. 3. Azithromycin 500 mg p.o. at bedtime. 4. Bumetanide 2 mg per hour. 5. Rocephin 1 gram IV daily. 6. Plavix 75 mg daily. 7. Fentanyl. 8. Guaifenesin. 9. Heparin 5000 units subcutaneously q. 8 hours. 10. Lactulose. 11. Melatonin. 12. Ondansetron. PHYSICAL EXAMINATION: General: He is awake, alert, oriented. Vital Signs: Blood pressure of 132/83, O2 sat of 97% on 3 liters of oxygen via nasal cannula. HEENT: Anicteric sclerae, normocephalic. Neck: Supple. JVD. Chest and Lungs: Symmetrical expansion. Clear breath sounds. Cardiac: Without murmur. Abdomen: Soft and nontender. Extremities: No edema. LABORATORY DATA: Hemoglobin 9.4, WBC 7800, platelet count 124,000. Sodium 146, potassium 4.1, chloride 110, CO2 of 23.2, BUN 37, creatinine 4.2, glucose 90, calcium 8.4, phosphorus 4. ASSESSMENT: 1. End-stage renal disease secondary to hypertension and history of membranous glomerulonephritis. 2. Volume overload secondary to stage V chronic kidney disease, now improved. 3. Significant right base pneumonia. 4. Anemia of chronic kidney disease. 5. History of coronary artery disease, status post coronary artery stent placement. 6. Hypernatremia. 7. Proteinuria secondary to history of membranous nephropathy. PLAN: Patient had dialysis and will have dialysis anytime today. Next dialysis will be tomorrow. I will continue his Retacrit 10,000 units subcutaneously 2 times a week. DT: 21:20:42 TT: 21:57:00 Ref: [id number] - TID: [id number] [facility]
[2025-08-10] VITALS (25 sets, daily range): BP systolic 103–162; BP diastolic 68–100; PULSE 72–106; RESP 16–93; TEMP 36.5–37.2; O2SAT 90–97
[2025-08-10] MEDS: LEVALBUTEROL RT 1.25 MG/0.5 ML NEBU INH ×3 (01:31→19:44)
[2025-08-10] MEDS: IPRATROPIUM RT 0.5 MG/ 2.5 ML NEBU INH ×3 (01:32→19:44)
[2025-08-10] MEDS: BUMETANIDE INJ 20 MG in CONTAINER,EMPTY 50 ML 1 BAG 8 MG IV (01:41)
[2025-08-10 05:53] LABS: Basophils # (Auto) 0.1 Thou/mm3 (0.0-0.2); Basophils % (Auto) 1 % (0-2.5); Eosinophils # (Auto) 0.4 Thou/mm3 (0.0-0.5); Eosinophils % (Auto) 5 % (0-10); Hematocrit 28.8 % (41.0-53.0); Hemoglobin 9.3 g/dL (13.5-16.0); Immature Granulocytes Auto 0.03 Thou/mm3 (0.00-0.00); Lymphocytes # (Auto) 1.6 Thou/mm3 (1.0-4.8); Lymphocytes % (Auto) 20 % (10-50); Mean Corpuscular HGB Conc 32.3 g/dl (31.0-37.0); Mean Corpuscular Hemoglobin 30.9 pg (25.0-35.0); Mean Corpuscular Volume 96 fL (80-100); Monocytes # (Auto) 1.4 Thou/mm3 (0.0-0.8); Monocytes % (Auto) 18 % (0-12); Neutrophils # (Auto) 4.6 Thou/mm3 (1.8-7.7); Neutrophils % (Auto) 56 % (37-80); Nucleated Red Blood Cell # 0.00 Thou/mm3 (0.00-0.00); Nucleated Red Blood Cell % 0 /100 WBC (0); Platelet Count 121 Thou/mm3 (140-440); RDW Standard Deviation 49.2 fL (35.1-43.9); Red Blood Count 3.01 Miln/mm3 (4.50-5.90); White Blood Count 8.1 Thou/mm3 (3.8-10.6)
[2025-08-10 06:20] LABS: Alanine Aminotransferase 28 U/L (10-49); Albumin, Serum 3.4 gm/dL (3.4-4.8); Albumin/Globulin Ratio 1.3 (1.2-2.2); Alkaline Phosphatase 81 U/L (46-116); Anion Gap 12 (7-16); Aspartate Amino Transferase 37 U/L (0-34); BUN/Creatinine Ratio 8 Ratio (12-20); Bilirubin,Total 0.5 mg/dL (0.3-1.2); Blood Urea Nitrogen 29 mg/dL (9-23); Calcium 8.3 mg/dL (8.3-10.6); Calcium (Corrected) 8.8 mg/dL (8.5-10.1); Carbon Dioxide 28.2 mMol/L (20.0-31.0); Chloride 105 mMol/L (98-107); Creatinine (Component) 3.5 mg/dL (0.6-1.3); Estimated Creatinine Clearance 21.9 mL/min (>60); Globulin 2.7 gm/dL (2.3-3.5); Glucose 85 mg/dL (74-106); Magnesium 1.5 mg/dL (1.6-2.6); Osmolality,Calculated 293 (275-295); Phosphorous 3.4 mg/dL (2.4-5.1); Potassium 3.8 mMol/L (3.4-5.1); Sodium 145 mMol/L (136-145); Total Protein 6.1 gm/dL (5.7-8.2); eGFR 18 See Note
--- NOTE | 2025-08-10 09:02 | ESPR_ITS ---
Documentation for date of: 08/10/25 Subjective Subjective Interval history: Patient seen and examined at bedside during HD.Patient tolerating Dialysis well, no active complaints. Recommend Discharging on Bumex 2mg qday and follow up with cardiology outpatient. Nephrology is following. Exam Vital Signs Temp Pulse Resp BP Pulse Ox O2 Del Method O2 Flow Rate 98.0 F 89 24 H 134/68 H 95 Nasal Cannula 2 08/10/25 08:00 08/10/25 08:45 08/10/25 08:00 08/10/25 08:45 08/10/25 08:00 08/10/25 08:00 08/10/25 07:45 Narrative Exam General: No acute distress, well nourished Eye: PERRL, EOMI, normal conjunctiva, no scleral icterus HENT: Normocephalic, atraumatic, normal hearing, moist oral mucosa Neck: Supple, non-tender, no JVD, no lymphadenopathy Lungs: Normal breath sounds, no wheezing Heart: Normal S1 and S2, no S3 or S4 appreciated. Normal rate and regular rhythm, no murmurs, rubs gallops. 1+ pitting edema bilateral lower extremities, improving Abdomen: Soft, mild lower abdominal tenderness, non-distended, normal bowel sounds. No guarding or rebound tenderness. Musculoskeletal: Normal range of motion and strength, no other tenderness or swelling Skin: Skin is warm, dry, no rashes or lesions. Neurologic: Alert, awake and oriented x3. CN II-XII grossly intact. No focal neuro deficits. Psychiatric: Cooperative, appropriate mood and affect Objective Labs 08/11/25 05:11 08/11/25 05:11 Labs: Laboratory Results - last 24 hr 08/09/25 08/10/25 05:11 04:50 WBC 8.1 RBC 3.01 L Hgb 9.3 L Hct 28.8 L MCV 96 MCH 30.9 MCHC 32.3 RDW Std Deviation 49.2 H Plt Count 121 L Neut % (Auto) 56 Lymph % (Auto) 20 [place] % (Auto) 18 H Eos % (Auto) 5 Baso % (Auto) 1 Neut # (Auto) 4.6 Lymph # (Auto) 1.6 [place] # (Auto) 1.4 H Eos # (Auto) 0.4 Baso # (Auto) 0.1 Immature Gran # (Auto) 0.03 H Absolute Nucleated RBC 0.00 Immature Gran % 0 Nucleated RBC % 0 Sodium 145 Potassium 3.8 Chloride 105 Carbon Dioxide 28.2 Anion Gap 12 BUN 29 H Creatinine 3.5 H D Estim Creat Clear Calc 21.9 L eGFR 18 L BUN/Creatinine Ratio 8 L Glucose 85 Calculated Osmolality 293 Calcium 8.3 Corrected Calcium 8.8 Phosphorus 3.4 Magnesium 1.6 1.5 L Total Bilirubin 0.5 AST 37 H ALT 28 Alkaline Phosphatase 81 Total Protein 6.1 Albumin 3.4 Globulin 2.7 Albumin/Globulin Ratio 1.3 Quality Measures Quality Measures VTE prophylaxis Advance care planning discussed with:: patient Assessment & Plan Assessment Current Active Medications: Generic Name Dose Route Start Last Admin Trade Name Freq PRN Reason Stop Dose Admin Acetaminophen 650 mg 08/06/25 16:52 Acetaminophen 325 Mg Tablet PO 09/05/25 16:51 Q6H PRN Fever >100.3 Acetaminophen 650 mg 08/06/25 16:52 Acetaminophen 325 Mg Tablet PO 09/05/25 16:51 Q6H PRN PAIN SCALE 1-3 (mild Atorvastatin Calcium 40 mg 08/06/25 21:00 08/09/25 20:20 Atorvastatin Calcium 20 Mg Tablet PO 09/05/25 20:59 40 mg HS MARK Administration Azithromycin 500 mg 08/09/25 21:00 08/09/25 20:20 Azithromycin 250 Mg Tablet PO 08/16/25 20:59 500 mg HS MARK Administration Protocol Clopidogrel Bisulfate 75 mg 08/09/25 12:00 08/09/25 12:59 Clopidogrel Bisulfate 75 Mg Tablet PO 09/08/25 11:59 75 mg QDAY MARK Administration Guaifenesin 600 mg 08/09/25 09:00 08/09/25 20:20 Guaifenesin Er 600 Mg Tabcr PO 09/08/25 08:59 600 mg BID MARK Administration Heparin Sodium (Porcine) 5,000 unit 08/06/25 22:00 08/10/25 05:52 Heparin Sod Inj 5000 Unit/Ml Vial SC 08/20/25 21:59 Not Given Q8HR MARK Heparin Sodium (Porcine) 4,100 unit 08/08/25 14:14 08/09/25 11:23 Heparin Sod Inj 1000 Unit/Ml Vial 10 Ml INDWELLCAT 08/22/25 14:13 4,100 unit PRN PRN Administration DIALYSIS Ceftriaxone Sodium/Dextrose 1 gm in 50 mls @ 100 mls/hr 08/06/25 16:59 08/09/25 19:09 Rocephin/D5w 1gm Iv Premix IV 08/13/25 16:58 Infused QDAY MARK Infusion Albumin Human 25 gm in 100 mls @ 100 mls/hr 08/08/25 11:44 Albuminex 25% Ivpb IV Q30MIN PRN DIALYSIS Magnesium Sulfate 4 gm in 50 mls @ 12.5 mls/hr 08/10/25 08:00 Magnesium Sulfate Ivpb IV 08/10/25 11:59 X1 ONE Ipratropium [place] 0.5 mg 08/08/25 19:00 08/10/25 07:41 Ipratropium Rt 0.5 Mg/ 2.5 Ml Nebu INH 09/07/25 18:59 Not Given Q6HRRT MARK Lactulose 10 gm 08/09/25 12:00 08/09/25 20:22 Lactulose Syrup 20 Gm/30 Ml Udc PO 09/08/25 11:59 Not Given BID MARK Protocol Levalbuterol HCl 1.25 mg 08/08/25 19:00 08/10/25 07:42 Levalbuterol Rt 1.25 Mg/0.5 Ml Nebu INH 09/07/25 18:59 Not Given Q6HRRT MARK Levalbuterol HCl 1.25 mg 08/08/25 15:46 Levalbuterol Rt 1.25 Mg/0.5 Ml Nebu INH 09/07/25 15:45 Q4HR PRN WHEEZING Ondansetron HCl 4 mg 08/06/25 16:52 Ondansetron Inj 2 Mg/Ml Inj 2 Ml IVP 09/05/25 16:51 Q6H PRN NAUSEA OR VOMITING Protocol Polyethylene Glycol 17 gm 08/08/25 16:00 08/09/25 08:20 Polyethylene Glycol 17 Gm Packet PO 09/07/25 15:59 17 gm QDAY [facility] Administration Sennosides 1 tab 08/07/25 09:00 08/09/25 08:23 Senna/Docusate Sod 1 Tab Tablet PO 09/06/25 08:59 Not Given QDAY [facility] Protocol Sodium Chloride 3 ml 08/08/25 15:46 08/09/25 13:37 Sodium Chloride Rt Latosha 0.9% 3 Ml Nebu INH 09/07/25 15:45 3 ml PRN PRN Administration SOLN Zolpidem Tartrate 5 mg 08/07/25 20:10 08/09/25 20:20 Zolpidem 5 Mg Tablet PO 09/06/25 20:09 5 mg HS PRN Administration INSOMNIA Plan Assessment and Plan: Summary: Mr. Mcconnell is a 70-year-old male with past medical history of CKD stage IV established with Dr. Ovalle, CAD status post stent mid LAD follows Dr. Palomo, GI bleed 08/01 - GE junction ulcer/internal hemorrhoids grade IV, diverticulosis, hyperlipidemia, BPH, nephrolithiasis and ?COPD/asthma who presented to [facility] emergency department with a chief complaint of shortness of breath. Patient complains of shortness of breath on activity and while lying flat, limited ADLs and IADLs secondary to dyspnea has worsening bilateral lower extremity swelling for the last several weeks. #Fluid overload status #Acute decompensated heart failure #Diastolic heart failure, HFpEF EF 55 to 60% #CKD stage IV progression to CKD stage V #Membranous nephropathy #New onset hemodialysis, 08/08 Patient presented with anasarca, 3+ bilateral lower extremity edema, patient generalized anasarca noted on physical exam. Patient BNP on presentation 518, did complain of mild chest discomfort, troponin negative, EKG shows normal sinus rhythm, heart rate 77 QTc 420 Chest x-ray shows prominent vascular congestion Risks and benefits of Bumex gtt. discussed with patient, patient verbalizes that he would like to avoid dialysis and is okay with a trial of Bumex. Patient was started on Lasix 40 twice daily, was given additional dose today however patient has poor urine output, likely progression of CKD. 08/08 - Patient had around 1.8 L urine output yesterday, did have dialysis catheter placed today. 08/09 - Patient had 1 L urine output despite receiving hemodialysis with 2 L fluid removal, will continue Bumex drip Recommendations: - Continue Bumex 2mg qday, discharge on Bumex. - Nephrology following and Dialysis planned. - Strict intake and output, daily weight, fluid restriction 1500 cc - Follow up with cardiology outpatient #CAD status post stent mid LAD Cardiac Cath 2021: - [id number] coronary atherosclerosis with 40% stenosis in the mid left anterior descending coronary artery, 99% stenosis of side branch of a tiny caliber vessel stenosis of tiny caliber side branch of the first diagonal branch and patent previously stented mid left anterior descending coronary artery, 20% eccentric stenosis in the proximal right coronary artery, 40% eccentric stenosis in the mid right coronary artery, and minimal aneurysmal dilatation of the mid right coronary artery. - Mid anterior wall, left ventricular hypokinesis with overall good left ventricular systolic function with ejection fraction of 60%. - Normal right femoral arterial angiography. Lipid panel 05/16/2025 shows triglycerides 72, cholesterol 132, LDL 71, HDL 47, hemoglobin A1c 08/06/2025 5.2, TSH 05/16/2025 4.01 Recommendations: - Continue Plavix 75 mg daily - Follow up with cardiology outpatient for further workup #Hypertension Patient on Coreg 12.5 mg p.o. twice daily and hydrochlorothiazide 25 mg p.o. daily as needed edema -Resume Coreg as blood pressure permissible for management of hypertension #Hyperlipidemia Lipid panel 05/16/2025 shows triglycerides 72, cholesterol 132, LDL 71, HDL 47 Continue atorvastatin 40 mg at bedtime #Electrolyte abnormalities #Hypernatremia #Hyperchloremia #Hyperphosphatemia - Management as per nephrology Case discussed with Attending Physician Dr. Navdeep Baer MD Internal Medicine PGY-2 Disclaimer: This note was dictated by speech recognition. Minor errors in audit consultant may be present due to voice recognition software. Attending Provider Attestation/Addendum I have personally seen and examined the patient separately on the above date of service and discussed the plan of care with the resident. I reviewed the resident Dr. Margarita Baer consultation progress note and agree with the resident findings and plan in the note above and have also edited the documentation to reflect my findings and plan. Navdeep Barajas M.D. Interventional Cardiology
--- NOTE | 2025-08-10 10:31 | ESPR_ITS ---
RE: GENESIS KAUR : 1955 DATE OF SERVICE: 08/10/2025 HISTORY OF PRESENT ILLNESS: Briefly, he is a 70-year-old gentleman with hypertension, coronary artery disease status post coronary artery stent placement, stage V CKD now ESRD, and biopsy-proven membranous glomerulonephritis whose kidney function has declined progressively in the past few years and now ESRD. Patient was dialyzed 2 days in a row and waiting for his third dialysis today. He said that he is ready to go home and was able to walk yesterday and even today. CURRENT MEDICATIONS: 1. Acetaminophen. 2. Albumin 25 g p.r.n. 3. Atorvastatin 40 mg at bedtime. 4. Azithromycin 500 mg p.o. at bedtime. 5. Bumetanide 2 mg IV daily. 6. Ceftriaxone 1 g daily. 7. Plavix 75 mg daily. 8. Heparin. 9. Lactulose. 10. Zolpidem 5 mg at bedtime. PHYSICAL EXAMINATION: General: He is awake, alert, oriented, engaging. Vital Signs: Blood pressure of 121/74, heart rate of 74. HEENT: Anicteric sclerae, cephalic. Neck: Supple. JVD. Chest and Lungs: Symmetrical expansion. Clear breath sounds. Cardiac: No rub, no murmur. Abdomen: Soft, nontender. Extremities: No edema. LABORATORY DATA: Hemoglobin 9.3, WBC 8100, platelet count 121,000. Sodium 145, potassium 3.8, chloride 105, CO2 of 28.2, BUN 29, creatinine 3.5. Glucose 85, phosphorus 3.4. ASSESSMENT: 1. End-stage renal disease secondary to hypertension and history of membranous glomerulonephritis. 2. Volume overload secondary to stage V chronic kidney disease now end-stage renal disease, now improved. 3. Significant right base pneumonia, also improved. 4. Anemia of chronic kidney disease. 5. History of coronary artery disease status post coronary artery stent placement. 6. Hypernatremia, now resolved. 7. Proteinuria secondary to history of membranous nephropathy. PLAN: Patient will be dialyzed anytime soon. After dialysis today, patient can be discharged. I will give him one dose of Retacrit 10,000 units x1 today before discharge. DT: 10:16:15 TT: 10:30:00 Ref: [id number] - TID: [id number]
[2025-08-10] MEDS: HEPARIN SOD INJ 1000 UNIT/ML VIAL 10 ML 4100 UNIT INDWELLCAT (11:10)
[2025-08-10] MEDS: Magnesium Sulfate 4 GM Ivpb 4 GM/50 ML BAG IV (12:54)
[2025-08-10] MEDS: LACTULOSE SYRUP 20 GM/30 ML UDC 10 GM PO (12:54)
[2025-08-10] MEDS: cefTRIAXone/D5w 1gm IV premix 1 GM/50 ML BAG IV (12:55)
[2025-08-10] MEDS: POLYETHYLENE GLYCOL 17 GM PACKET PO (12:55)
[2025-08-10] MEDS: SENNA/DOCUSATE SOD 1 TAB TABLET PO (12:56)
[2025-08-10] MEDS: CLOPIDOGREL BISULFATE 75 MG TABLET PO (12:56)
[2025-08-10] MEDS: HEPARIN SOD INJ 5000 UNIT/ML VIAL SC (13:15)
[2025-08-10] MEDS: EPOETIN ALFA-EPBX INJ 10,000 UNIT/ML VIAL (ESRD) 10000 UNIT SC (13:15)
--- NOTE | 2025-08-10 14:15 | ESPR_ITS ---
<Statement entered by Jordon Ta MD - 08/10/25 15:30> No acute overnight events. Seen and examined at bedside and patient sitting in chair, under no respiratory distress, but now on 2 L NC saturating 96%. He received his third dialysis session today and currently pending outpatient dialysis chair. Otherwise, he has been cleared from nephrology perspective for discharge. Cardiology also following, appreciate recommendations. Will continue IV antibiotics for pneumonia as he has one more day and will likely not need any upon discharge. Anticipate discharge within next 24-48 hours. ----- Note reviewed and agree with care plan as documented. Please refer to the note below for further details. Plan discussed with attending physician Dr. Latasha Ta MD PGY-2 Internal Medicine Documentation for date of: 08/10/25 Subjective Subjective Interval history: Patient had no acute events overnight. Patient was on 2 L NC during dialysis and says he is feeling okay. Patient does not have any new concerns or questions. Patient is having his 3rd dialysis session today where he had another 2L taken off. Patient has a dialysis chair outpatient scheduled but is not able to be discharged until tomorrow. Exam Vital Signs Temp Pulse Resp BP Pulse Ox O2 Del Method O2 Flow Rate 97.8 F 94 26 H 145/70 H 96 Nasal Cannula 2 08/10/25 11:09 08/10/25 13:09 08/10/25 13:09 08/10/25 11:09 08/10/25 13:09 08/10/25 08:00 08/10/25 13:09 Narrative Exam General: No acute distress, well nourished Eye: PERRL, EOMI, normal conjunctiva, no scleral icterus HENT: Normocephalic, atraumatic, normal hearing, moist oral mucosa Neck: Supple, non-tender, no JVD, no lymphadenopathy Lungs: Lungs CTAB, No increased work of breathing Heart: Normal S1 and S2, no S3 or S4 appreciated. Normal rate and regular rhythm, no murmurs, rubs gallops. 1/2+ pitting edema of b/l LE and abdomen Abdomen: Soft, mild lower abdominal tenderness, non-distended, normal bowel sounds. No guarding or rebound tenderness. Musculoskeletal: Normal range of motion and strength, no other tenderness or swelling Skin: Skin is warm, dry, no rashes or lesions. Neurologic: Alert, awake and oriented x3. CN II-XII grossly intact. No focal neuro deficits. Psychiatric: Cooperative, appropriate mood and affect Objective Labs 08/11/25 05:11 08/11/25 05:11 Labs: Laboratory Results - last 24 hr 08/10/25 04:50 WBC 8.1 RBC 3.01 L Hgb 9.3 L Hct 28.8 L MCV 96 MCH 30.9 MCHC 32.3 RDW Std Deviation 49.2 H Plt Count 121 L Neut % (Auto) 56 Lymph % (Auto) 20 Gregory % (Auto) 18 H Eos % (Auto) 5 Baso % (Auto) 1 Neut # (Auto) 4.6 Lymph # (Auto) 1.6 Gregory # (Auto) 1.4 H Eos # (Auto) 0.4 Baso # (Auto) 0.1 Immature Gran # (Auto) 0.03 H Absolute Nucleated RBC 0.00 Immature Gran % 0 Nucleated RBC % 0 Sodium 145 Potassium 3.8 Chloride 105 Carbon Dioxide 28.2 Anion Gap 12 BUN 29 H Creatinine 3.5 H D Estim Creat Clear Calc 21.9 L eGFR 18 L BUN/Creatinine Ratio 8 L Glucose 85 Calculated Osmolality 293 Calcium 8.3 Corrected Calcium 8.8 Phosphorus 3.4 Magnesium 1.5 L Total Bilirubin 0.5 AST 37 H ALT 28 Alkaline Phosphatase 81 Total Protein 6.1 Albumin 3.4 Globulin 2.7 Albumin/Globulin Ratio 1.3 Quality Measures Quality Measures VTE prophylaxis Advance care planning discussed with:: patient Assessment & Plan Assessment Current Active Medications: Generic Name Dose Route Start Last Admin Trade Name Freq PRN Reason Stop Dose Admin Acetaminophen 650 mg 08/06/25 16:52 Acetaminophen 325 Mg Tablet PO 09/05/25 16:51 Q6H PRN Fever >100.3 Acetaminophen 650 mg 08/06/25 16:52 Acetaminophen 325 Mg Tablet PO 09/05/25 16:51 Q6H PRN PAIN SCALE 1-3 (mild Atorvastatin Calcium 40 mg 08/06/25 21:00 08/09/25 20:20 Atorvastatin Calcium 20 Mg Tablet PO 09/05/25 20:59 40 mg HS MICHELLE Administration Azithromycin 500 mg 08/09/25 21:00 08/09/25 20:20 Azithromycin 250 Mg Tablet PO 08/16/25 20:59 500 mg HS MICHELLE Administration Protocol Clopidogrel Bisulfate 75 mg 08/09/25 12:00 08/10/25 12:56 Clopidogrel Bisulfate 75 Mg Tablet PO 09/08/25 11:59 75 mg QDAY MICHELLE Administration Guaifenesin 600 mg 08/09/25 09:00 08/10/25 12:56 Guaifenesin Er 600 Mg Tabcr PO 09/08/25 08:59 600 mg BID MICHELLE Administration Heparin Sodium (Porcine) 5,000 unit 08/06/25 22:00 08/10/25 13:15 Heparin Sod Inj 5000 Unit/Ml Vial SC 08/20/25 21:59 5,000 unit Q8HR MICHELLE Administration Heparin Sodium (Porcine) 4,100 unit 08/08/25 14:14 08/09/25 11:23 Heparin Sod Inj 1000 Unit/Ml Vial 10 Ml INDWELLCAT 08/22/25 14:13 4,100 unit PRN PRN Administration DIALYSIS Ceftriaxone Sodium/Dextrose 1 gm in 50 mls @ 100 mls/hr 08/06/25 16:59 08/10/25 12:55 Rocephin/D5w 1gm Iv Premix IV 08/13/25 16:58 100 mls/hr QDAY MICHELLE Administration Albumin Human 25 gm in 100 mls @ 100 mls/hr 08/08/25 11:44 Albuminex 25% Ivpb IV Q30MIN PRN DIALYSIS Ipratropium [place] 0.5 mg 08/08/25 19:00 08/10/25 13:08 Ipratropium Rt 0.5 Mg/ 2.5 Ml Nebu INH 09/07/25 18:59 0.5 mg Q6HRRT MICHELLE Administration Lactulose 10 gm 08/09/25 12:00 08/10/25 12:54 Lactulose Syrup 20 Gm/30 Ml Udc PO 09/08/25 11:59 10 gm BID MICHELLE Administration Protocol Levalbuterol HCl 1.25 mg 08/08/25 19:00 08/10/25 13:08 Levalbuterol Rt 1.25 Mg/0.5 Ml Nebu INH 09/07/25 18:59 1.25 mg Q6HRRT MICHELLE Administration Levalbuterol HCl 1.25 mg 08/08/25 15:46 Levalbuterol Rt 1.25 Mg/0.5 Ml Nebu INH 09/07/25 15:45 Q4HR PRN WHEEZING Ondansetron HCl 4 mg 08/06/25 16:52 Ondansetron Inj 2 Mg/Ml Inj 2 Ml IVP 09/05/25 16:51 Q6H PRN NAUSEA OR VOMITING Protocol Polyethylene Glycol 17 gm 08/08/25 16:00 08/10/25 12:55 Polyethylene Glycol 17 Gm Packet PO 09/07/25 15:59 17 gm QDAY MICHELLE Administration Sennosides 1 tab 08/07/25 09:00 08/10/25 12:56 Senna/Docusate Sod 1 Tab Tablet PO 09/06/25 08:59 1 tab QDAY MICHELLE Administration Protocol Sodium Chloride 3 ml 08/08/25 15:46 08/09/25 13:37 Sodium Chloride Rt Latosha 0.9% 3 Ml Nebu INH 09/07/25 15:45 3 ml PRN PRN Administration SOLN Zolpidem Tartrate 5 mg 08/07/25 20:10 08/09/25 20:20 Zolpidem 5 Mg Tablet PO 09/06/25 20:09 5 mg HS PRN Administration INSOMNIA Plan Mr. Mcconnell is a 70 y/o male with PMH CKD stage V (follows with Vasquez), CAD s/p stenting (follows with Dewey), hyperlipidemia, and hypertension who presented to the ED on 08/06 with exertional dyspnea, b/l LE swelling x several weeks; productive cough and chest pain that does not radiate x 1 week. Admitted for CHF exacerbation, PNA (CAP), and KERWIN. Dialysis catheter placed and HD completed 08/08 & 08/09 & 08/10, pending outpatient dialysis chair before discharging patient. #Exertional dyspnea #c/f CHF exacerbation #c/f cardiorenal syndrome No documented hx CHF in charts. Pt states he takes a water pill at home Evidence of fluid overload - b/l LE and abdominal pitting edema, exertional dyspnea, tachypnea, chest discomfort BNP 518 Troponin unremarkable, EKG NSR HR 77, QTc 420 CXR: vascular congestion Echo results showed EF 55-60, diastolic indeterminate. Making urine with bumex Plan: - Continuing Bumex drip, receiving dialysis - Strict I+Os - Daily weights - Fluid restriction 1800 mL/day #ESRD Due to hypertension, h/o membranous glomerulonephritis Follows with Dr. Ovalle On admit: BUN 56, Cr 4.5 (baseline ~3), eGFR 13 (baseline ~mid 20s) S/p dialysis catheter placement 08/08 Plan: - Consulted Dr. Ovalle, appreciate recs - Dialysis completed 08/08 & 08/09 & 08/10 - pending outpatient dialysis chair before discharging patient. ? Follow-up renal panel #Community acquired pneumonia Afebrile, no leukocytosis. Wet sounding productive cough x 1 week, tachypnea spO2 appropriate on room air Flu and COVID negative CXR: right base pneumonia Plan: - Ceftriaxone 1 g IV daily (08/06-) - Azithromycin 500 mg IV daily () - Duoneb q4h michelle - Albuterol q4h PRN - Added guaifenesin 600 mg po bid - Pending sputum cx - Blood cx no growth so far #Normocytic anemia On admit: hgb 9.2, HCT 29.3, MCV 98 No s/sx active bleed Plan: - CTM with daily CBC #CAD s/p stenting Follows with Dr. Palomo Angiography 2021: normal sized LV, mid anterior wall/LV hypokineses, good overall LV systolic function with LVEF 60%. Mid-moderate coronary atherosclerosis with 40% stenosis in the mid LAD, s/p stenting, 99% stenosis side branch; 20% eccentric stenosis mid RCA with minimal aneurysmal dilatation of mid RCA. Plan: - Atorvastatin 40 mg PO QHS - Plavix 75 mg PO daily (home med) #Hypertension Plan: - Carvedilol 12.5 mg PO BID (home med) - held 10/09 c/f CHF exacerbation #Hyperlipidemia Plan: - Atorvastatin 40 mg PO QHS Checklist Dispo: Tele, New Hemodialysis 08/08, HD chair found; planned to DC tomorrow Lines: PIV Diet: Cardiac Bowel Reg: doc/senna/miralax VTE ppx: heparin subQ GI ppx: n/a Pain mgmt: Tylenol 650 mg PO q6h PRN Code status: full Patient plan of care was discussed with the attending physician, Dr. Pagan & senior resident Dr. Cisco Santos MD PGY-1 Attending Provider Attestation/Addendum I, Imelda Pagan, , attest that I was physically present for the isaac portions of the service and evaluated the patient with the resident and I reviewed and discussed the case with the resident and agree with the resident's findings and plans of care as documented above Patient seen and evaluated this AM. He states that he is feeling well. No acute complaints at this time. Patient underwent his third HD session today, tolerating well. Anticipate DC within next 24h once dialysis chair time is arranged.
--- NOTE | 2025-08-10 16:09 | PCS.ST ---
Referral submitted to [facility] location via [facility]. Referral also submitted via [employer] . Response pending. Dialysis staff member, Lynda; ; direct line.
[2025-08-10] MEDS: ATORVASTATIN CALCIUM 20 MG TABLET 40 MG PO (20:50)
[2025-08-10] MEDS: AZITHROMYCIN 250 MG TABLET 500 MG PO (20:50)
[2025-08-11 05:52] VITALS: BMI 32.5
[2025-08-11 05:57] LABS: Basophils # (Auto) 0.0 Thou/mm3 (0.0-0.2); Basophils % (Auto) 0 % (0-2.5); Eosinophils # (Auto) 0.4 Thou/mm3 (0.0-0.5); Eosinophils % (Auto) 4 % (0-10); Hematocrit 25.8 % (41.0-53.0); Immature Granulocytes Auto 0.03 Thou/mm3 (0.00-0.00); Lymphocytes # (Auto) 1.5 Thou/mm3 (1.0-4.8); Lymphocytes % (Auto) 17 % (10-50); Mean Corpuscular HGB Conc 32.9 g/dl (31.0-37.0); Mean Corpuscular Hemoglobin 31.5 pg (25.0-35.0); Mean Corpuscular Volume 96 fL (80-100); Monocytes # (Auto) 1.8 Thou/mm3 (0.0-0.8); Monocytes % (Auto) 19 % (0-12); Neutrophils # (Auto) 5.5 Thou/mm3 (1.8-7.7); Neutrophils % (Auto) 59 % (37-80); Nucleated Red Blood Cell # 0.00 Thou/mm3 (0.00-0.00); Nucleated Red Blood Cell % 0 /100 WBC (0); Platelet Count 97 Thou/mm3 (140-440); RDW Standard Deviation 50.4 fL (35.1-43.9); Red Blood Count 2.70 Miln/mm3 (4.50-5.90); White Blood Count 9.3 Thou/mm3 (3.8-10.6)
[2025-08-11 06:01] LABS: Hemoglobin 8.5 g/dL (13.5-16.0)
[2025-08-11 06:21] LABS: Alanine Aminotransferase 36 U/L (10-49); Albumin, Serum 3.1 gm/dL (3.4-4.8); Albumin/Globulin Ratio 1.3 (1.2-2.2); Alkaline Phosphatase 71 U/L (46-116); Anion Gap 11 (7-16); Aspartate Amino Transferase 38 U/L (0-34); BUN/Creatinine Ratio 7 Ratio (12-20); Bilirubin,Total 0.4 mg/dL (0.3-1.2); Blood Urea Nitrogen 25 mg/dL (9-23); Calcium 7.8 mg/dL (8.3-10.6); Calcium (Corrected) 8.5 mg/dL (8.5-10.1); Carbon Dioxide 28.1 mMol/L (20.0-31.0); Chloride 104 mMol/L (98-107); Creatinine (Component) 3.5 mg/dL (0.6-1.3); Estimated Creatinine Clearance 21.6 mL/min (>60); Globulin 2.3 gm/dL (2.3-3.5); Glucose 86 mg/dL (74-106); Magnesium 2.4 mg/dL (1.6-2.6); Osmolality,Calculated 288 (275-295); Phosphorous 3.4 mg/dL (2.4-5.1); Potassium 3.6 mMol/L (3.4-5.1); Sodium 143 mMol/L (136-145); Total Protein 5.4 gm/dL (5.7-8.2); eGFR 18 See Note
[2025-08-11 07:15] VITALS: PULSE 81; RESP 16; RESP 92
[2025-08-11] MEDS: IPRATROPIUM RT 0.5 MG/ 2.5 ML NEBU INH ×2 (07:15→12:14)
[2025-08-11] MEDS: LEVALBUTEROL RT 1.25 MG/0.5 ML NEBU INH ×2 (07:16→12:14)
[2025-08-11 08:00] VITALS: BP 121/70; PULSE 101; PULSE 76; RESP 26; TEMP 36.6; O2SAT 93
[2025-08-11] MEDS: cefTRIAXone/D5w 1gm IV premix 1 GM/50 ML BAG IV (08:07)
[2025-08-11] MEDS: LACTULOSE SYRUP 20 GM/30 ML UDC 10 GM PO (08:08)
[2025-08-11] MEDS: POLYETHYLENE GLYCOL 17 GM PACKET PO (08:09)
[2025-08-11] MEDS: CLOPIDOGREL BISULFATE 75 MG TABLET PO (08:09)
[2025-08-11] MEDS: SENNA/DOCUSATE SOD 1 TAB TABLET PO (08:09)
[2025-08-11 08:18] VITALS: BP 121/70; PULSE 76
[2025-08-11] MEDS: BUMETANIDE 0.5 MG TABLET 2 MG PO (08:18)
--- NOTE | 2025-08-11 09:50 | ESPR_ITS ---
Documentation for date of: 08/11/25 Subjective Subjective Interval history: Patient seen and examined at bedside during HD.Patient tolerating Dialysis well, no active complaints. Recommend Discharging on Bumex 2mg qday and follow up with cardiology outpatient. Follow up with ground service equipment mechanic in 1 week. Nephrology is following. Exam Vital Signs Temp Pulse Resp BP Pulse Ox O2 Del Method O2 Flow Rate 97.9 F 76 26 H 121/70 93 L Nasal Cannula 2 08/11/25 08:00 08/11/25 08:18 08/11/25 08:00 08/11/25 08:18 08/11/25 08:00 08/11/25 08:00 08/11/25 08:00 Narrative Exam General: No acute distress, well nourished Eye: PERRL, EOMI, normal conjunctiva, no scleral icterus HENT: Normocephalic, atraumatic, normal hearing, moist oral mucosa Neck: Supple, non-tender, no JVD, no lymphadenopathy Lungs: Normal breath sounds, no wheezing Heart: Normal S1 and S2, no S3 or S4 appreciated. Normal rate and regular rhythm, no murmurs, rubs gallops. 1+ pitting edema bilateral lower extremities, improving Abdomen: Soft, mild lower abdominal tenderness, non-distended, normal bowel sounds. No guarding or rebound tenderness. Musculoskeletal: Normal range of motion and strength, no other tenderness or swelling Skin: Skin is warm, dry, no rashes or lesions. Neurologic: Alert, awake and oriented x3. CN II-XII grossly intact. No focal neuro deficits. Psychiatric: Cooperative, appropriate mood and affect Objective Labs 08/11/25 05:11 08/11/25 05:11 Labs: Laboratory Results - last 24 hr 08/11/25 05:11 WBC 9.3 RBC 2.70 L Hgb 8.5 L Hct 25.8 L MCV 96 MCH 31.5 MCHC 32.9 RDW Std Deviation 50.4 H Plt Count 97 L Neut % (Auto) 59 Lymph % (Auto) 17 Ada % (Auto) 19 H Eos % (Auto) 4 Baso % (Auto) 0 Neut # (Auto) 5.5 Lymph # (Auto) 1.5 Ada # (Auto) 1.8 H Eos # (Auto) 0.4 Baso # (Auto) 0.0 Immature Gran # (Auto) 0.03 H Absolute Nucleated RBC 0.00 Immature Gran % 0 Nucleated RBC % 0 Sodium 143 Potassium 3.6 Chloride 104 Carbon Dioxide 28.1 Anion Gap 11 BUN 25 H Creatinine 3.5 H Estim Creat Clear Calc 21.6 L eGFR 18 L BUN/Creatinine Ratio 7 L Glucose 86 Calculated Osmolality 288 Calcium 7.8 L Corrected Calcium 8.5 Phosphorus 3.4 Magnesium 2.4 Total Bilirubin 0.4 AST 38 H ALT 36 Alkaline Phosphatase 71 Total Protein 5.4 L Albumin 3.1 L Globulin 2.3 Albumin/Globulin Ratio 1.3 Quality Measures Quality Measures VTE prophylaxis Advance care planning discussed with:: patient Assessment & Plan Assessment Current Active Medications: Generic Name Dose Route Start Last Admin Trade Name Freq PRN Reason Stop Dose Admin Acetaminophen 650 mg 08/06/25 16:52 Acetaminophen 325 Mg Tablet PO 09/05/25 16:51 Q6H PRN Fever >100.3 Acetaminophen 650 mg 08/06/25 16:52 Acetaminophen 325 Mg Tablet PO 09/05/25 16:51 Q6H PRN PAIN SCALE 1-3 (mild Atorvastatin Calcium 40 mg 08/06/25 21:00 08/10/25 20:50 Atorvastatin Calcium 20 Mg Tablet PO 09/05/25 20:59 40 mg HS MARK Administration Azithromycin 500 mg 08/09/25 21:00 08/10/25 20:50 Azithromycin 250 Mg Tablet PO 08/16/25 20:59 500 mg HS MARK Administration Protocol Bumetanide 2 mg 08/11/25 09:00 08/11/25 08:18 Bumetanide 0.5 Mg Tablet PO 09/10/25 08:59 2 mg QDAY MARK Administration Clopidogrel Bisulfate 75 mg 08/09/25 12:00 08/11/25 08:09 Clopidogrel Bisulfate 75 Mg Tablet PO 09/08/25 11:59 75 mg QDAY MARK Administration Guaifenesin 600 mg 08/09/25 09:00 08/11/25 08:09 Guaifenesin Er 600 Mg Tabcr PO 09/08/25 08:59 600 mg BID MARK Administration Heparin Sodium (Porcine) 5,000 unit 08/06/25 22:00 08/11/25 05:36 Heparin Sod Inj 5000 Unit/Ml Vial SC 08/20/25 21:59 Not Given Q8HR MARK Heparin Sodium (Porcine) 4,100 unit 08/08/25 14:14 08/09/25 11:23 Heparin Sod Inj 1000 Unit/Ml Vial 10 Ml INDWELLCAT 08/22/25 14:13 4,100 unit PRN PRN Administration DIALYSIS Ceftriaxone Sodium/Dextrose 1 gm in 50 mls @ 100 mls/hr 08/06/25 16:59 08/11/25 08:07 Rocephin/D5w 1gm Iv Premix IV 08/13/25 16:58 100 mls/hr QDAY MARK Administration Albumin Human 25 gm in 100 mls @ 100 mls/hr 08/08/25 11:44 Albuminex 25% Ivpb IV Q30MIN PRN DIALYSIS Ipratropium [place] 0.5 mg 08/08/25 19:00 08/11/25 00:35 Ipratropium Rt 0.5 Mg/ 2.5 Ml Nebu INH 09/07/25 18:59 Not Given Q6HRRT MARK Lactulose 10 gm 08/09/25 12:00 08/11/25 08:08 Lactulose Syrup 20 Gm/30 Ml Udc PO 09/08/25 11:59 10 gm BID MARK Administration Protocol Levalbuterol HCl 1.25 mg 08/08/25 19:00 08/11/25 00:35 Levalbuterol Rt 1.25 Mg/0.5 Ml Nebu INH 09/07/25 18:59 Not Given Q6HRRT MARK Levalbuterol HCl 1.25 mg 08/08/25 15:46 Levalbuterol Rt 1.25 Mg/0.5 Ml Nebu INH 09/07/25 15:45 Q4HR PRN WHEEZING Ondansetron HCl 4 mg 08/06/25 16:52 Ondansetron Inj 2 Mg/Ml Inj 2 Ml IVP 09/05/25 16:51 Q6H PRN NAUSEA OR VOMITING Protocol Polyethylene Glycol 17 gm 08/08/25 16:00 08/11/25 08:09 Polyethylene Glycol 17 Gm Packet PO 09/07/25 15:59 17 gm QDAY MARK Administration Sennosides 1 tab 08/07/25 09:00 08/11/25 08:09 Senna/Docusate Sod 1 Tab Tablet PO 09/06/25 08:59 1 tab QDAY MARK Administration Protocol Sodium Chloride 3 ml 08/08/25 15:46 08/09/25 13:37 Sodium Chloride Rt Latosha 0.9% 3 Ml Nebu INH 09/07/25 15:45 3 ml PRN PRN Administration SOLN Zolpidem Tartrate 5 mg 08/07/25 20:10 08/09/25 20:20 Zolpidem 5 Mg Tablet PO 09/06/25 20:09 5 mg HS PRN Administration INSOMNIA Plan Assessment and Plan: Summary: Mr. Mcconnell is a 70-year-old male with past medical history of CKD stage IV established with Dr. Ovalle, CAD status post stent mid LAD follows Dr. Palomo, GI bleed 08/01 - GE junction ulcer/internal hemorrhoids grade IV, diverticulosis, hyperlipidemia, BPH, nephrolithiasis and ?COPD/asthma who presented to [facility] emergency department with a chief complaint of shortness of breath. Patient complains of shortness of breath on activity and while lying flat, limited ADLs and IADLs secondary to dyspnea has worsening bilateral lower extremity swelling for the last several weeks. #Fluid overload status #Acute decompensated heart failure #Diastolic heart failure, HFpEF EF 55 to 60% #CKD stage IV progression to CKD stage V #Membranous nephropathy #New onset hemodialysis, 08/08 Patient presented with anasarca, 3+ bilateral lower extremity edema, patient generalized anasarca noted on physical exam. Patient BNP on presentation 518, did complain of mild chest discomfort, troponin negative, EKG shows normal sinus rhythm, heart rate 77 QTc 420 Chest x-ray shows prominent vascular congestion Risks and benefits of Bumex gtt. discussed with patient, patient verbalizes that he would like to avoid dialysis and is okay with a trial of Bumex. Patient was started on Lasix 40 twice daily, was given additional dose today however patient has poor urine output, likely progression of CKD. 08/08 - Patient had around 1.8 L urine output yesterday, did have dialysis catheter placed today. 08/09 - Patient had 1 L urine output despite receiving hemodialysis with 2 L fluid removal, will continue Bumex drip Recommendations: - Continue Bumex 2mg qday, discharge on Bumex. - Nephrology following and Dialysis planned. - Strict intake and output, daily weight, fluid restriction 1500 cc - Follow up with cardiology outpatient in 1 week. #CAD status post stent mid LAD Cardiac Cath 2021: - [id number] coronary atherosclerosis with 40% stenosis in the mid left anterior descending coronary artery, 99% stenosis of side branch of a tiny caliber vessel stenosis of tiny caliber side branch of the first diagonal branch and patent previously stented mid left anterior descending coronary artery, 20% eccentric stenosis in the proximal right coronary artery, 40% eccentric stenosis in the mid right coronary artery, and minimal aneurysmal dilatation of the mid right coronary artery. - Mid anterior wall, left ventricular hypokinesis with overall good left ventricular systolic function with ejection fraction of 60%. - Normal right femoral arterial angiography. Lipid panel 05/16/2025 shows triglycerides 72, cholesterol 132, LDL 71, HDL 47, hemoglobin A1c 08/06/2025 5.2, TSH 05/16/2025 4.01 Recommendations: - Continue Plavix 75 mg daily - Follow up with cardiology outpatient for further workup #Hypertension Patient on Coreg 12.5 mg p.o. twice daily and hydrochlorothiazide 25 mg p.o. daily as needed edema -Resume Coreg as blood pressure permissible for management of hypertension #Hyperlipidemia Lipid panel 05/16/2025 shows triglycerides 72, cholesterol 132, LDL 71, HDL 47 Continue atorvastatin 40 mg at bedtime #Electrolyte abnormalities #Hypernatremia #Hyperchloremia #Hyperphosphatemia - Management as per nephrology Case discussed with Attending Physician Dr. Navdeep Baer MD Internal Medicine PGY-2 Disclaimer: This note was dictated by speech recognition. Minor errors in director corporate communications may be present due to voice recognition software. Attending Provider Attestation/Addendum I have personally seen and examined the patient separately on the above date of service and discussed the plan of care with the resident. I reviewed the resident Dr. Margarita Baer consultation progress note and agree with the resident findings and plan in the note above and have also edited the documentation to reflect my findings and plan. Navdeep Barajas M.D. Interventional Cardiology
[2025-08-11 12:00] VITALS: BP 108/72; PULSE 85; PULSE 99; RESP 22; TEMP 36.3; O2SAT 93
--- NOTE | 2025-08-11 13:50 | PC.SS ---
ELIZABETH notified by [facility] staff, Lynda; that patient's chair schedule will be M, W, F from 4:30 pm to approximately 7:[address] Ovalle will be sugar refinery supervisor. 1st session scheduled for Thursday08-14-25. Patient needs to arrive at dialysis center at 4:00 pm. [facility] .
--- NOTE | 2025-08-11 14:22 | PC.SS ---
[facility] [place] [address] [address] [facility] [place] . Chair schedule will be Thu, Thu, Thu from 4:30 pm to approximately 7:30 pm. 1st session scheduled for Thursday08-14-25. Dr. Ovalle will be field hauler. Patient needs to arrive at dialysis center at 4:00 pm.
[2025-08-11] MEDS: HEPARIN SOD INJ 5000 UNIT/ML VIAL SC (14:23)
--- NOTE | 2025-08-11 14:25 | ESDS_ITS ---
<Statement entered by Imelda Pagan DO - 08/12/25 09:28> I, Imelda Pagan DO, attest that I was physically present for the isaac portions of the service and evaluated the patient with the resident and I reviewed and discussed the case with the resident and agree with the resident's findings and plans of care as documented above <Statement entered by Jordon Ta MD - 08/11/25 14:31> Note reviewed and agree with care plan as documented. Please refer to the note below for further details. Plan discussed with attending physician Dr. Latasha Ta MD PGY-2 Internal Medicine Planned Discharge Date 08/11/25 DS: Providers Provider Date of admission: 08/06/25 16:52 Primary care physician: Yakov Nichols MD Admitting Provider: Anisa Michel MD Attending Provider on Admission: Imelda Pagan DO Consults: 08/06/25 17:20 Consult to Nephrology Routine Comment: Consulting Provider: Melissa Ovalle 08/06/25 19:58 Consult to Cardiology Routine Comment: Volume overload Consulting Provider: Navdeep Barajas 08/08/25 15:53 Referral Physical Therapy Routine Comment: Physician Instructions: Attending Provider on DC: Imelda Pagan DO Discharging Provider: Imelda Pagan DO DS: Diagnosis Problem List Completed Was Problem List Reviewed/Reconciled?: Yes Hospital Course Hospital Course Hospital course: Mr. Mcconnell is a 70 y/o male with PMH CKD stage V (follows with Vasquez), CAD s/p stenting (follows with [facility]), hyperlipidemia, and hypertension who presented to the ED at [facility] on 08/06 with exertional dyspnea, b/l LE swelling x several weeks; productive cough and chest pain that does not radiate x 1 week. Patient was started on antibiotics and breathing treatments to cover for potential pneumonia. Blood cultures were negative. Patient received diuretics with patient making some urine with the help of bumex. Patient's kidney function was affect and needed to have dialysis catheter inserted and HD started. Patient received 3 sessions of dialysis before being discharged. Patient's breathing status improved greatly with patient being discharged on room air saturating well. Patient is being discharged with his outpatient dialysis chair ready and instructions below. Patient will also be given bumex outpatient. Discharge Instructions ? Dialysis Instructions: Dialysis Center [facility]; [facility] [place] . Chair schedule will be Thu, Thu, Thu from 4:30 pm to approximately 7:30 pm. 1st session scheduled for Thursday08-14-25. Dr. Ovalle will be athletic field custodian. Patient needs to arrive at dialysis center at 4:00 pm. ? You've been started on bumex 2 mg daily for lower extremity edema and stopped HCTZ ? Continue taking all other home medications as prescribed ? Follow-up with PCP within 1-2 weeks of discharge ? Follow-up with cardiology in 1-2 weeks of discharge ? Follow-up with nephrology in 1-2 weeks of discharge ? If you do not have a PCP, you can follow-up at the [facility] (you can call [phone] to make an appointment) ? 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 Pagan & senior resident Dr. Cisco Santos MD PGY-1 Time Spent with Patient Time attestation: Total time spent providing and/or coordinating discharge services: Time spent: Greater than 30 minutes Exam Vital Signs Temp Pulse Resp BP Pulse Ox O2 Del Method O2 Flow Rate 97.4 F 85 22 H 108/72 93 L Nasal Cannula 2 08/11/25 12:00 08/11/25 12:00 08/11/25 12:08/11/25 12:08/11/25 12:00 08/11/25 12:08/11/25 12:00 Narrative Exam General: No acute distress, well nourished Eye: PERRL, EOMI, normal conjunctiva, no scleral icterus HENT: Normocephalic, atraumatic, normal hearing, moist oral mucosa Neck: Supple, non-tender, no JVD, no lymphadenopathy Lungs: Lungs CTAB, No increased work of breathing Heart: Normal S1 and S2, no S3 or S4 appreciated. Normal rate and regular rhythm, no murmurs, rubs gallops. 1/2+ pitting edema of b/l LE and abdomen Abdomen: Soft, non-tender, non-distended, normal bowel sounds. No guarding or rebound tenderness. Musculoskeletal: Normal range of motion and strength, no other tenderness or swelling Skin: Skin is warm, dry, no rashes or lesions. Neurologic: Alert, awake and oriented x3. CN II-XII grossly intact. No focal neuro deficits. Psychiatric: Cooperative, appropriate mood and affect Discharge Plan Plan Patient Disposition: HOME (Self Care) Patient condition on transfer: Stable Care Plan Goals: ? You've been started on bumex 2 mg daily for lower extremity edema and stopped HCTZ ? Continue taking all other home medications as prescribed ? Follow-up with PCP within 1-2 weeks of discharge ? Follow-up with cardiology in 1-2 weeks of discharge ? Follow-up with nephrology in 1-2 weeks of discharge ? If you do not have a PCP, you can follow-up at the [facility] (you can call [phone] to make an appointment) ? Return to ED if symptoms worsen or recur Prescriptions/Referrals Prescriptions/Med Rec: New bumetanide 2 mg tablet 2 mg PO QDAY 30 Days Qty: 30 0RF tamsulosin 0.4 mg capsule 0.4 mg PO QDAY Qty: 30 0RF Continued atorvastatin 40 mg Tablet 40 mg PO QPM carvedilol 12.5 mg Tablet 12.5 mg PO BID albuterol sulfate 0.63 mg/3 mL Solution For Nebulization 0.63 mg INHALATION Q4H PRN (Reason: Wheezing) clopidogrel 75 mg tablet 75 mg PO DAILY Patient Comments: TAKE 1 TABLET BY MOUTH ONCE DAILY zolpidem 10 mg tablet 10 mg PO HS PRN (Reason: sleep) Patient Comments: TAKE 1 TABLET BY MOUTH AT BEDTIME NEEDED Discontinued hydrochlorothiazide 25 mg Tablet 25 mg PO DAILY PRN (Reason: edema) ciprofloxacin HCl 500 mg tablet 500 mg PO BID Rx Instructions: Has not started yet Referrals: Yakov Nichols MD [Primary Care Provider, Family Practice] Patient/Caregiver Discharge Instructions Education Materials: What Is Pneumonia?, Preventing Pneumonia, Acute Kidney Failure Dc, When You Have Pneumonia, ED Shortness of Breath (Dyspnea), ED Pneumonia (Adult) Print Language: Urdu Stand Alone Forms: Clarissa Award Info., Patient Portal Info Letter Discharge Order Discharge Orders: Discharge (Routine); Ordered 08/11/25 Ordered By: Jordon Peck [place] Quality Discharge Quality Measures VTE prophylaxis
--- NOTE | 2025-08-11 14:26 | PC.SS ---
SYSTEMS DESIGNER provided patient with chair schedule and date of initial appointment. Bedside nurse updated.
[2025-08-11 16:00] VITALS: BP 126/82; PULSE 85; PULSE 94; RESP 24; TEMP 36.7; O2SAT 91
--- NOTE | 2025-08-11 22:06 | ESPR_ITS ---
RE: GENESIS KAUR : 1955 DATE OF SERVICE: 08/11/25 Briefly, he is a 70-year-old gentleman with hypertension; coronary artery disease, status post coronary artery stent placement; stage V CKD, now ESRD; and biopsy-proven membranous glomerulonephritis whose kidney function has declined progressively in the past few years now and has now reached ESRD. Patient had dialysis today and is ready to go home. PHYSICAL EXAMINATION: General: He is awake, alert, and oriented. Vital Signs: Blood pressure of 126/87, heart rate of 85. HEENT: Anicteric sclerae. Normocephalic. Neck: Supple. JVD. Chest and Lungs: Symmetric expansion, clear breath sounds. Cardiac: No rub, no murmur. Abdomen: Soft, nontender. Extremities: No edema. LABORATORY DATA: Hemoglobin 8.5, WBC 9300, platelet count 97,000. Sodium 146, potassium 3.6, chloride 104. CO2 of 28.1, BUN 25, creatinine 3.5. Calcium 8.5, phosphorus 3.4. ASSESSMENT: 1. End-stage renal disease secondary to hypertension and history of membranous glomerulonephritis. 2. Volume overload secondary to chronic kidney disease, now improved. 3. Significant right base pneumonia, now improved. 4. Anemia of chronic disease, received Retacrit 10,000 units twice a week. 5. History of coronary artery disease, status post coronary artery stent placement. 6. Proteinuria secondary to history of membranous nephropathy. PLAN: Patient will be going home today, and his start time at the [facility] will be on Thursday 4:00 a.m. We will continue dialysis in the outpatient setting. DT: 21:31:04 TT: 22:05:00 Ref: [id number] - TID: [id number] MTDD
== END 2025-08-11 16:54 | disposition home or self-care (01) | DRG 291 ==
LOC: SERX 16:31 → SERHOLD 17:13 → S2NX 19:31
PROVIDERS: Internal Medicine Nephrology; Nurse Practitioner Family; Registered Nurse General Practice; Admitting Provider Student in an Organized Health Care Education/Training Program; Emergency Provider Emergency Medicine; PCP Family Medicine; Visit Provider Internal Medicine
DX: I13.2 Hypertensive heart and chronic kidney disease with heart failure and with stage 5 chronic kidney disease, or end stage renal disease (principal); I50.33 Acute on chronic diastolic (congestive) heart failure; J18.9 Pneumonia, unspecified organism; N18.6 End stage renal disease; E87.0 Hyperosmolality and hypernatremia; N17.9 Acute kidney failure, unspecified; E78.5 Hyperlipidemia, unspecified; I25.10 Atherosclerotic heart disease of native coronary artery without angina pectoris; D63.1 Anemia in chronic kidney disease; E83.39 Other disorders of phosphorus metabolism; E87.8 Other disorders of electrolyte and fluid balance, not elsewhere classified; N40.0 Benign prostatic hyperplasia without lower urinary tract symptoms; Z95.5 Presence of coronary angioplasty implant and graft; Z79.02 Long term (current) use of antithrombotics/antiplatelets; Z79.899 Other long term (current) drug therapy; Z99.2 Dependence on renal dialysis; Z87.442 Personal history of urinary calculi
CPT/HCPCS: 36415; 71045; 76937; 77001; 80048; 80053; 80069; 80074; 81001; 82436; 83036; 83540; 83550; 83605; 83735; 83880; 84100; 84133; 84156; 84300; 84484; 85025; 85610; 85730; 86580; 87040; 87077; 87086; 87186; 87205; 87502; 87811; 93005; 93306; 94640; 94667; 96365; 97162; 99284; A4649; A9270; C1750; C1894; J0456; J0696; J1642; J1643; J1644; J1938; J3010; J3475; J3490; J7050; Q5105; Q5106